=== PATIENT | female | born 1970 | race Caucasian/White ===

== ENCOUNTER 2020-06-11 13:57 | Emergency (ER) | payer MEDICAID, SELFPAY ==
--- NOTE | ~2020-06-11 | XR_ITS ---
EXAMINATION: XR foot LT min 3V DATE: 06/11/2020 14:13 INDICATION: Left foot pain, initial encounter TECHNIQUE: Dorsoplantar, lateral, and 2 oblique views of the left foot were obtained. COMPARISON: None. FINDINGS: There is mild osteoarthritis of the first metatarsophalangeal joint. No fracture is identif ied. There is mild dorsal soft tissue swelling of the foot. Bone alignment is normal. IMPRESSION: 1. No acute osseous abnormality. Reviewed, dictated and finalized at location B.
[2020-06-11 14:01] VITALS: BP 145/89; PULSE 91; RESP 20; TEMP 36.8; O2SAT 100
--- NOTE | 2020-06-11 14:44 | ED.LOWEXIN ---
HPI - Extremity Injury (Lower) General Chief Complaint: Extremity Injury, Lower <Azalea Talbert PA-C - Last Filed: 06/11/20 14:50> Stated Complaint: Lefrt foot pain <ZAC Quach Last Filed: 06/11/20 14:50> Time Seen by Provider: 06/11/20 14:01 <Azalea Talbert PA-C - Last Filed: 06/11/20 14:50> Source: patient <ZAC Quach Last Filed: 06/11/20 14:50> Mode of arrival: wheelchair <ZAC Quach Last Filed: 06/11/20 14:50> Limitations: no limitations <ZAC Quach Last Filed: 06/11/20 14:50> History of Present Illness HPI Narrative: This is a 50 year old female that presents to the ER for left foot pain since an injury last night. Reports she dropped some tile on the foot. Reports since she has had swelling and pain on the top of her foot. Reports decreased ROM due to pain. Denies numbness. <ZAC Quach Last Filed: 06/11/20 14:50> Related Data Home Medications: Home Medications Medication Instructions Recorded Confirmed acetaminophen [Tylenol Extra 500 mg PO Q4H PRN 10/12/19 10/12/19 Strength] <Azalea Talbert PA-C - Last Filed: 06/11/20 14:50> Allergies/Adverse Reactions: Allergies Allergy/AdvReac Type Severity Reaction Status Date / Time codeine Allergy Hives Verified 06/11/20 14:03 <ZAC Quach Last Filed: 06/11/20 14:50> Review of Systems Review of Systems: Narrative: CONSTITUTIONAL: Denies fever MUSCULOSKELETAL: Reports joint pain, and myalgia. NEUROLOGIC: Denies numbness <ZAC Quach Last Filed: 06/11/20 14:50> All systems reviewed & are unremarkable except as noted in HPI and below <ZAC Quach Last Filed: 06/11/20 14:50> [facility] Surgical History Surgical History: Surgical History (Updated 06/11/20 @ 14:47 by Azalea Talbert PA-C) History of hysterectomy <Azalea Talbert PA-C - Last Filed: 06/11/20 14:50> Family History Family History: Family History (System 11/22/19 @ 12:06 by Monique Plata) Father Acute myocardial infarction <Azalea Talbert PA-C - Last Filed: 06/11/20 14:50> Social History Social History: Social History (System 11/22/19 @ 12:06 by Monique Plata) Smoking packs per day: 2 Smoking cigarettes per day: 40.0 Years smoked: 40 Smoking pack-years: 80.00 Smoking status: Current every day smoker Tobacco type: cigarettes Alcohol intake: former Substance use type: marijuana Gender identity (if verbalized by the patient): Female <Azalea Talbert PA-C - Last Filed: 06/11/20 14:50> Exam Narrative: Exam Narrative: GENERAL: Well-appearing, well-nourished, and in no acute distress. HEAD: Normocephalic, atraumatic. EYES: EOMI. EXTREMITIES: Normal range of motion. Mild swelling to the dorsal surface of the left foot. Normal sensation. Normal DP pulses SKIN: Warm, dry, no rash. NEURO: No focal deficits. Alert and oriented x3. PSYCH: Normal mood and affect <Azalea Talbert PA-C - Last Filed: 06/11/20 14:50> Course Vital Signs Vital signs: Vital Signs Temperature 98.3 F 06/11/20 14:01 Pulse Rate 91 06/11/20 14:01 Respiratory Rate 06/11/20 14:01 Blood Pressure 145/89 H 06/11/20 14:01 Pulse Oximetry 100 06/11/20 14:01 Temperature 98.3 F 06/11/20 14:01 Pulse Rate 91 06/11/20 14:01 Respiratory Rate 06/11/20 14:01 Blood Pressure 145/89 H 06/11/20 14:01 Pulse Oximetry 100 06/11/20 14:01 <Azalea Talbert PA-C - Last Filed: 06/11/20 14:50> Vital Signs Temperature 98.3 F 06/11/20 14:01 Pulse Rate 91 06/11/20 14:01 Respiratory Rate 20 06/11/20 14:01 Blood Pressure 145/89 H 06/11/20 14:01 Pulse Oximetry 100 06/11/20 14:01 Temperature 98.3 F 06/11/20 14:01 Pulse Rate 91 06/11/20 14:01 Respiratory Rate 20 06/11/20 14:01 Blood Pressure 145/89 H 06/11/20 14:01 Pulse Oximetry 100 06/11/20
[2020-06-11] MEDS: KETOROLAC (*BKC) 60 MG/2 ML VIAL IM (14:49)
== END 2020-06-11 14:55 | disposition home or self-care (01) ==
PROVIDERS: Emergency Provider Emergency Medicine
DX: M79.672 Pain in left foot (principal); F17.210 Nicotine dependence, cigarettes, uncomplicated
CPT/HCPCS: 73630; 96372; 99283; J1885

== ENCOUNTER 2021-07-20 20:18 | Emergency (ER) | payer BC, SELFPAY ==
[2021-07-20 20:20] VITALS: BP 128/88; PULSE 104; RESP 20; TEMP 36.6; O2SAT 94
--- NOTE | 2021-07-20 21:14 | ED.BACK ---
HPI - Back Pain/Injury General Chief Complaint: Extremity Injury, Lower Stated Complaint: leg hip pain Time Seen by Provider: 07/20/21 21:10 Source: patient Mode of arrival: ambulatory Limitations: no limitations History of Present Illness HPI Narrative: 51-year-old woman with a history of low back pain complains of right flank and hip pain that started this morning. Patient states she recently has been lifting a lot of heavy items. She states the pain radiates all the way down to her foot. For the last 3 days she has had a sharp pain in her right lower back. She denies any weakness, numbness, tingling, dysuria, hematuria. Patient states that she had a fever of 101 yesterday. She denies cough and cold symptoms, shortness of breath, chest pain, vomiting and diarrhea. MD elicited complaint: back pain Pertinent past history: prior back pain Onset (ago): day(s) Timing: constant Severity: moderate Quality: sharp Location: right lower back Radiation: right leg below the knee Exacerbating factors: walking Relieving factors: other ( Rest) Context: while lifting Associated symptoms: fever Treatments prior to arrival: prescription analgesics Related Data Allergies Allergy/AdvReac Type Severity Reaction Status Date / Time codeine Allergy Hives Verified 06/11/20 14:03 Review of Systems Review of Systems: All systems reviewed & are unremarkable except as noted in HPI and below Constitutional: Constitutional: Denies chills and Reports fever(s) Eyes: Eyes: Denies change in vision and Denies photophobia ENT: Denies nasal congestion and Denies sore throat Cardiovascular: Cardiovascular: Denies chest pain and Denies radiating jaw, neck or arm pain Respiratory: Respiratory: Denies cough, Denies dyspnea and Denies wheezing Gastrointestinal: Gastrointestinal: Denies abdominal pain, Denies diarrhea, Denies nausea and Denies vomiting Genitourinary: Genitourinary: Denies hematuria, Denies nocturia and Denies dysuria Musculoskeletal: Musculoskeletal: Reports back pain, Denies arthralgias and Denies joint swelling Integumentary/Breasts: Skin/Breast: Denies pruritus, Denies erythema and Denies rash Neurologic: Denies vertigo, Denies dizziness and Denies syncope Hematologic/Lymphatic: Hematologic/Lymphatic: Denies easy bleeding and Denies easy bruising Allergic/Immunologic: Allergic/Immunologic: Denies lip swelling and Denies throat swelling PMF Past Medical History Medical History (Updated 07/20/21 @ 21:55 by Pablo Hogan MD) Peptic ulcer disease Surgical History Surgical History (Updated 07/20/21 @ 21:19 by Pablo Hogan MD) H/O tubal ligation History of hysterectomy Family History Family History (System 11/22/19 @ 12:06 by Monique Plata) Father Acute myocardial infarction Social History Social History (System 11/22/19 @ 12:06 by Monique Plata) Smoking packs per day: 2 Smoking cigarettes per day: 40.0 Years smoked: 40 Smoking pack-years: 80.00 Smoking status: Current every day smoker Tobacco type: cigarettes Alcohol intake: former Substance use type: marijuana Gender identity (if verbalized by the patient): Female Exam Const: General: healthy appearing and alert Orientation/consciousness: patient oriented x3 Limitations: no limitations Other: Moderate acute distress. HENMT: Head: normal to inspection Face and sinus: normal facial exam Eyes: Conjunctivae: conjunctivae normal Pupils: Equal, round and reactive pupils present EOM: EOMs intact bilaterally Resp: Effort & Inspection: normal respiratory effort and not labored Auscultation: clear to auscultation bilaterally, no rales, no rhonchi and no wheezes Cardio: Rate: regular rate Rhythm: regular rhythm Heart sounds: no murmurs GI: GI Palp: Yes Soft to palpation, No Tenderness to palpation present (GI) and No Guarding due to palpation present (GI) Back/Spine/Pelvis: Other: Tenderness over the ri
[2021-07-20 21:37] LABS: Appearance Urine Clear (Clear); Bilirubin Urine 2+ (Negative); Blood Urine Negative (Negative); Glucose Urine UA Negative (Negative); Ketones Urine Trace (Negative); Leukocyte Esterase Ur Negative (Negative); Nitrate Urine Negative (Negative); Protein Urine Trace (Negative); Specific Grav Ur >= 1.030 (1.010-1.020)
[2021-07-20 21:46] LABS: Add Urine Microscopic? YES; Color Urine Dark Orange (Yellow)
[2021-07-20 21:47] LABS: Bacteria Urine 2+ /hpf; Mucus Urine Heavy /lpf; RBC Urine 0-2 /hpf (0-2); Squamous Epithelial Cell Urine Many /hpf (Few); WBC Urine None seen /hpf (0-3)
[2021-07-20 21:51] LABS: SARS-CoV-2 Ag Negative (Negative)
[2021-07-20 21:59] VITALS: PULSE 100; RESP 20; O2SAT 95
== END 2021-07-20 21:59 | disposition home or self-care (01) ==
PROVIDERS: Emergency Provider Emergency Medicine
DX: M54.31 Sciatica, right side (principal); Z20.822 Contact with and (suspected) exposure to COVID-19
CPT/HCPCS: 81001; 87426; 99283; C9803

== ENCOUNTER 2021-08-02 08:23 | Emergency (ER) | payer BC, SELFPAY ==
[2021-08-02 08:30] VITALS: BP 132/100; PULSE 110; RESP 28; TEMP 36; O2SAT 100
--- NOTE | 2021-08-02 08:45 | ED.SOB ---
HPI - SOB/Dyspnea General Chief Complaint: Shortness of Breath/Dyspnea Stated Complaint: SOB, chest pain, nausea Source: patient Mode of arrival: ambulatory Limitations: no limitations History of Present Illness HPI Narrative: This is 51-year-old female that presents with some some intermittent shortness of breath for the last 5 days with a nonproductive cough with no chest pain no shortness of breath, and currently no fever chills the patient has been having some epigastric burning MD elicited complaint: shortness of breath and cough Onset (ago): day(s) Timing: intermittent Severity: mild Exacerbating factors: nothing Related Data Allergies Allergy/AdvReac Type Severity Reaction Status Date / Time codeine Allergy Hives Verified 06/11/20 14:03 Review of Systems Review of Systems: All systems reviewed & are unremarkable except as noted in HPI and below PMFSH Past Medical History Medical History Peptic ulcer disease Surgical History Surgical History H/O tubal ligation History of hysterectomy Family History Family History Father Acute myocardial infarction Social History Social History Smoking packs per day: 2 Smoking cigarettes per day: 40.0 Years smoked: 40 Smoking pack-years: 80.00 Smoking status: Current every day smoker Tobacco type: cigarettes Alcohol intake: former Substance use type: marijuana Gender identity (if verbalized by the patient): Female Exam Const: General: no acute distress Orientation/consciousness: patient oriented x3 HENMT: Head: normal to inspection Eyes: Conjunctivae: conjunctivae normal Pupils: Equal, round and reactive pupils present EOM: EOMs intact bilaterally Chest: Chest palpation & inspection: normal inspection of the chest Resp: Effort & Inspection: normal respiratory effort Cardio: Rate: regular rate Rhythm: regular rhythm GI: GI Palp: Yes Soft to palpation and Yes Tenderness to palpation present (GI) ( epigastric tenderness) Urinary Catheter: Urinary Catheter: patent and draining Back/Spine/Pelvis: Back: no CVA tenderness Neuro: General: patient oriented x3, moves all extremities, no meningeal signs and no focal motor deficits Extrem: General: normal to inspection Psych: Mental Status: mental status grossly normal Course Course Emergency Course: patient resting comfortably appears anxious was sent antibiotics along with an inhaler and Protonix for her epigastric discomfort. Vital Signs Vital signs: Vital Signs Temperature 36.0 C L 08/02/21 08:30 Pulse Rate 110 H 08/02/21 08:30 Respiratory Rate 28 H 08/02/21 08:30 Blood Pressure 132/100 H 08/02/21 08:30 Pulse Oximetry 100 08/02/21 08:30 Temperature 36.0 C L 08/02/21 08:30 Pulse Rate 110 H 08/02/21 08:30 Respiratory Rate 28 H 08/02/21 08:30 Blood Pressure 132/100 H 08/02/21 08:30 Pulse Oximetry 100 08/02/21 08:30 Critical Care Time Critical Care Time Critical Care Time: No Discharge Plan Discharge Clinical Impression: Peptic ulcer disease, URI with cough and congestion Patient Disposition: Home, Self-Care Condition: Stable Instructions: Antibiotic Form, Upper Respiratory Infection (ED), GERD (Gastroesophageal Reflux Disease) (ED) Additional Instructions: take medicine as prescribed, follow-up with primary care physician within 1 week for further evaluation and treatment. Prescriptions: New azithromycin [Zithromax Z-Valente] 250 mg tablet See Rx Instructions .ROUTE .COMPLEX Qty: 6 RF: 0 albuterol sulfate [ProAir HFA] 90 mcg/actuation HFA aerosol inhaler 2 puff inhalation QID PRN (Reason: shortness of breath or wheezing) Qty: 6.7 RF: 0 pantoprazole [Protonix] 40 mg tablet,delayed release (DR/EC) 4
[2021-08-02 08:56] VITALS: BP 132/97; PULSE 100; RESP 24; TEMP 36.1; O2SAT 99
== END 2021-08-02 08:58 | disposition home or self-care (01) ==
PROVIDERS: Emergency Provider Emergency Medicine
DX: K27.9 Peptic ulcer, site unspecified, unspecified as acute or chronic, without hemorrhage or perforation (principal); J06.9 Acute upper respiratory infection, unspecified; R05 Cough
CPT/HCPCS: 99283

== ENCOUNTER 2021-08-11 07:31 | Inpatient (IN) | payer BC, SELFPAY ==
[2021-08-11] VITALS (7 sets, daily range): BP systolic 119–143; BP diastolic 83–106; PULSE 88–122; RESP 20–24; TEMP 36.6–36.9; O2SAT 92–96; BMI 35.1
--- NOTE | ~2021-08-11 | CT_ITS ---
EXAMINATION: CT diagnostic chest wo con EXAM DATE: 08/11/2021 10:20 INDICATION: Abnormal chest x-ray. Shortness of breath, known COPD SOB,COUGH,COPD. TECHNIQUE: Spiral CT of the chest without contrast. Axial, coronal and sagittal images of the chest were reviewed. Coronal maximum intensity pixel images of chest reviewed. The dose-length product ( DLP) for this examination was 364.44 mGy-cm. The exposure was tailored according to patient size (au to mA exposure control), and iterative reconstruction (ASIR) was used as additional dose reduction te chnique. Correlation is made to chest x-ray obtained earlier same date. FINDINGS: There is moderate cardiomegaly. Small pericardial and right pleural effusions. There is bas ilar interlobular septal thickening and scattered peripheral predominant groundglass opacities. Could be CHF exacerbation with mild pulmonary edema. Can't exclude superimposed acute infectious process s uch as COVID 19. Tracheobronchial tree is patent. Mildly enlarged precarinal lymph node, but with expected fatty hil um, likely reactive. There is no pneumothorax. There is moderate coronary arterial calcification , arterial sclerosis. Upper portion of the abdomen demonstrates ill-defined fat planes in the retroperitoneum, could be astrid ma from acute process such as pancreatitis. Recommend clinically correlating, consider checking amyla se lipase, additional imaging if indicated clinically. There is mild to moderate thoracic spondylosi s without osteoblastic or osteolytic lesions identified. IMPRESSION: 1. Findings consistent with CHF exacerbation. Superimposed pneumonia not excludable. 2. Nonspecific upper retroperitoneal edema; clinical correlation recommended. Reviewed, dictated and finalized at location A. IMPRESSION: 1. Findings consistent with CHF exacerbation. Superimposed pneumonia not exclu dable. 2. Nonspecific upper retroperitoneal edema; clinical correlation recommended.
--- NOTE | ~2021-08-11 | CT_ITS ---
EXAMINATION: CT abdomen pelvis w con DATE: 08/11/2021 12:47 INDICATION: Epigastric pain, nausea and vomiting. TECHNIQUE: Computed tomography (CT) of the abdomen and pelvis was performed with 100 mL Omnipaque-350 intravenous contrast. Automated exposure control and iterative reconstruction technique were employe d. The dose-length product was 1036.64 mGy-cm. COMPARISON: None FINDINGS: Very small posterior layering right pleural effusion. Mild crazy paving pattern at the bilateral lung bases with mosaic attenuation and smooth septal line thickening most likely mild pulmonary edema. Ca rdiomegaly. Atherosclerotic coronary artery calcific location. No pericardial effusion. Diffuse hepat ic steatosis. There is a small amount of pericholecystic fluid along with additional small amount of free fluid in the cul-de-sac. Pancreas, spleen and bilateral adrenal glands are normal. Bilateral low -attenuation renal cysts the largest on the right measuring 2.1 cm. Suggestion of a 2-3 mm nonobstruc ting stone at the mid right kidney although specificities decreased by the presence of intravenous co ntrast. No ureteral stones or hydronephrosis. No abnormal bowel wall thickening or obstruction. Appen carrol is normal. Bladder is normal. The uterus is not identified and has likely been surgically resecte d. No abscess or free intraperitoneal gas. Small focus of likely injected subcutaneous gas at the rig ht buttock. No pathologically enlarged abdominal or pelvic lymphadenopathy. Mild thoracolumbar dextro scoliosis with moderate spondylosis. L3 hemangioma. IMPRESSION: 1. Small amount of pericholecystic fluid which is disproportionate to the otherwise very small amount of free fluid in the pelvis which raises some suspicion for acute cholecystitis. Differential would include heart renal failure, liver disease, sepsis or other generalized edema forming states. 2. Likely congestive heart failure with cardiac megaly, mild bibasilar pulmonary edema and very small right pleural effusion. Reviewed, dictated and finalized at location A. IMPRESSION: 1. Small amount of pericholecystic fluid which is disproportionate to the other kelly very small amount of free fluid in the pelvis which raises some suspicion for acute cholecystitis. Differential would include heart renal failure, liver disease, sepsis or other generalized edema forming states. 2. Likely congestive heart failure with cardiac megaly, mild bibasilar pulmonar y edema and very small right pleural effusion.
--- NOTE | ~2021-08-11 | XR_ITS ---
EXAMINATION: XR chest 1V portable EXAM DATE: 08/11/2021 08:45 INDICATION: Shortness of breath. Patient under investigation for possible COVID 19. TECHNIQUE: Portable AP frontal chest x-ray was obtained. There is no prior study for comparison. FINDINGS: There is cardiomegaly and pulmonary vascular congestion. There is indistinct reticulation w ith a bibasal predominance which may indicate pulmonary edema. Pneumonia not excludable. No confluent consolidation, pneumothorax or pleural effusion. There are no osseous abnormalities identified. IMPRESSION: 1. Cardiomegaly, pulmonary vascular congestion. 2. Indistinct basilar predominant reticulation, could be edema but pneumonia not excludable. Reviewed, dictated and finalized at location A. IMPRESSION: 1. Cardiomegaly, pulmonary vascular congestion. 2. Indistinct basilar predominant reticulation, could be edema but pneumonia no t excludable.
--- NOTE | 2021-08-11 08:26 | ECG_ITS ---
Measurements Intervals [place] Rate: 120 P: 70 WV: 176 QRS: 79 QRSD: 94 T: 58 QT: 425 QTc: 601 Interpretive Statements SINUS TACHYCARDIA DELAYED PRECORDIAL R/S TRANSITION BORDERLINE ST-T WAVE ABNORMALITY- DIFFUSE LEADS ABNORMAL ECG Electronically Signed On 08-11-2021 10:48:55 CDT by Oh Bangura D.O.
[2021-08-11 08:58] LABS: Base Excess ABG -1.6 mmol/L (0-2); HCO3 ABG 20.3 mmol/L (23-29); Oxygen Content ABG 18.4 %vol (16.0-22.0); Oxygen Saturation ABG 96.4 % (95-97); Oxyhemoglobin 95.8 % (94-100); PCO2 ABG 27.3 mmHg (35-45); PO2 ABG 81.2 mmHg (80-90); Total Hemoglobin 13.6 g/dL (12.0-18.0); pH ABG 7.49 (7.35-7.45)
[2021-08-11 08:59] LABS: Device NASAL CANNULA; Modified Allen's Test Pass; Site Drawn RIGHT RADIAL
[2021-08-11 09:02] LABS: Basophils Absolute Auto 0.05 K/mm3 (0.00-0.10); Basophils Percent Auto 0.8 % (0.0-1.0); Eosinophils Absolute Auto 0.16 K/mm3 (0.02-0.50); Eosinophils Percent Auto 2.5 % (1.0-6.0); Hematocrit 42.3 % (35.0-49.0); Hemoglobin 13.7 g/dL (12.0-15.0); Immature Granulocyte Absolute 0.02 K/mm3 (0.00-0.00); Immature Granulocyte Percent A 0.3 % (0.0-0.0); Immature Platelet Fraction Pct 4.4 % (1.0-7.0); Lymphocytes Absolute Auto 0.86 K/mm3 (1.10-4.50); Lymphocytes Percent Auto 13.2 % (18.0-42.0); Mean Corpuscular HGB Conc 32.4 g/dL (32.0-36.0); Mean Corpuscular Hemoglobin 30.2 pg (27.0-31.0); Mean Corpuscular Volume 93.2 fL (78.0-102.0); Monocytes Absolute Auto 0.47 K/mm3 (0.10-0.90); Monocytes Percent Auto 7.2 % (2.0-11.0); Platelet Count Result 140 K/mm3 (150-420); Red Blood Count 4.54 M/mm3 (4.20-5.40); Red Cell Distribution Width 13.7 % (11.6-14.4); White Blood Count 6.5 K/mm3 (4.8-10.8)
[2021-08-11 09:16] LABS: Alanine Aminotransferase 51 U/L (14-59); Albumin Level 3.7 g/dL (3.4-5.0); Alkaline Phosphatase 71 U/L (46-116); Anion Gap 11 mmol/L (8-16); Aspartate Amino Transferase 45 U/L (15-37); Bilirubin,Total 0.9 mg/dL (0.00-1.00); Blood Urea Nitrogen 15 mg/dL (7-18); Calcium 8.7 mg/dL (8.5-10.1); Carbon Dioxide 25 mmol/L (21-32); Chloride 107 mmol/L (98-108); Estimated Glomerular Filt Rate 47; Glucose 112 mg/dL (70-99); Osmolality Calculated 297 mOsm/kg (285-295); Potassium 4.1 mmol/L (3.5-5.1); Sodium 143 mmol/L (136-145); Total Protein 7.8 g/dL (6.4-8.2); Troponin I 55.4 ng/L (0.00-60.4)
[2021-08-11 09:22] LABS: SARS-CoV-2 Ag Negative (Negative)
[2021-08-11] MEDS: ONDANSETRON INJ 4 MG/2 ML VIAL IV PUSH ×3 (09:22→20:37)
[2021-08-11] MEDS: KETOROLAC (*BKC) 60 MG/2 ML VIAL IM (09:22)
[2021-08-11] MEDS: PANTOPRAZOLE SODIUM IV 40 MG VIAL IV PUSH (09:23)
[2021-08-11] MEDS: SODIUM CHLORIDE 0.9% IV 500 ML 999 ML IV CONT (09:23)
[2021-08-11] MEDS: ALBUTEROL SULFATE (*SP) INHALER 2 PUFF INHALATION ×2 (09:23→17:31)
[2021-08-11] MEDS: MAG HYDROX/ALUMINUM HYD/SIMETH 30 ML, PHENobarb/HYOSCY/ATROPINE/SCOP 32.4 MG, LIDOCAINE... PO (09:23)
[2021-08-11 10:36] LABS: NT Pro B Type Natriuretic Pept 9450 pg/mL (0-125)
[2021-08-11 12:15] LABS: Lipase 149 U/L (73-393)
[2021-08-11] MEDS: FUROSEMIDE INJ 100 MG/10 ML VIAL 80 MG IV PUSH (12:24)
--- NOTE | 2021-08-11 12:53 | PC.NURSE ---
1238 LACIE DUNCAN REQUESTS INPATIENT ROOM FROM ANTONIO MAGAÑA RN. ROOM 203 PROVIDED. 1245 RN PROVIDES TELEPHONE REPORT TO DAR SOLOMON.
--- NOTE | 2021-08-11 13:08 | ED.SOB ---
HPI - SOB/Dyspnea General Chief Complaint: Shortness of Breath/Dyspnea Stated Complaint: COUGH SOB Time Seen by Provider: 08/11/21 07:33 Source: patient and RN notes reviewed Mode of arrival: ambulatory Limitations: no limitations History of Present Illness MD elicited complaint: shortness of breath and cough Pertinent past history: COPD Onset (ago): day(s) (3) Timing: constant Severity: moderate Exacerbating factors: nothing Relieving factors: nothing Known history of: COPD Associated symptoms: cough, wheezing and other (restless legs.) Treatment prior to arrival: none Related Data Allergies Allergy/AdvReac Type Severity Reaction Status Date / Time codeine Allergy Hives Verified 06/11/20 14:03 Review of Systems Review of Systems: All systems reviewed & are unremarkable except as noted in HPI and below Respiratory: Respiratory: Reports cough and Reports dyspnea Gastrointestinal: Gastrointestinal: Reports abdominal pain (minimal epigastric) [facility] Past Medical History Medical History Cholecystitis Congestive heart failure Peptic ulcer disease UTI (urinary tract infection) Surgical History Surgical History H/O tubal ligation History of hysterectomy Family History Family History Father Acute myocardial infarction Social History Social History Smoking packs per day: 0.5 Smoking cigarettes per day: 10.0 Years smoked: 41 Smoking pack-years: 20.50 Smoking status: Current every day smoker Tobacco type: cigarettes and e-cigarettes/vaping Second hand tobacco smoke exposure: Yes Alcohol intake: former Substance use: current Substance use type: marijuana Last use: 2 days ago possibly Gender identity (if verbalized by the patient): Female Spiritual care concerns: No Exam Const: General: no acute distress and alert Orientation/consciousness: patient oriented x3 HENMT: Head: normal to inspection Ears: external ears normal and TM's normal bilaterally General nose exam: Normal external nose present and Normal nares present Mouth: Yes moist mucous membranes Eyes: Conjunctivae: conjunctivae normal Pupils: Equal, round and reactive pupils present EOM: EOMs intact bilaterally Neck: Neck: normal visual inspection and no lymphadenopathy Chest: Chest palpation & inspection: normal inspection of the chest Resp: Effort & Inspection: normal respiratory effort Auscultation: rhonchi Cardio: Rate: tachycardic GI: GI Palp: Yes Soft to palpation and Yes Tenderness to palpation present (GI) (epigastrium) Percussion: Yes normal to percussion Auscultation: normal bowel sounds : General: Yes no CVA tenderness Back/Spine/Pelvis: Back: no CVA tenderness Skin: General skin exam: normal color Rashes: no rashes Neuro: General: patient oriented x3, moves all extremities, no meningeal signs, no focal motor deficits and CN's II-XI intact bilaterally Extrem: General: normal to inspection and no pedal edema Psych: Mental Status: mental status grossly normal Affect: normal affect Attitude: cooperative Thought content: Yes Normal thought content present Course Course Emergency Course: Pt was admitted. See orders. Reevaluation(s) Reevaluation #1: Pt remained mildly SOB, with no acute GI loss. Date: 08/11/21 Time: 08:45 Vital Signs Vital signs: Vital Signs Temperature 36.6 C 08/11/21 07:50 Pulse Rate 122 H 08/11/21 07:50 Respiratory Rate 22 H 08/11/21 07:50 Blood Pressure 138/98 H 08/11/21 07:50 Pulse Oximetry 96 08/11/21 07:50 Temperature 36.6 C 08/11/21 23:49 Pulse Rate 88 08/11/21 23:49 Respiratory Rate 20 08/11/21 23:49 Blood Pressure 124/94 H 08/11/21 23:49 Pulse Oximetry 94 08/11/21 23:49 MDM - SOB/Dyspnea Differential Di
--- NOTE | 2021-08-11 13:50 | PC.NURSE ---
Patient admitted to room 203 as full admit for CHF exacerbation, SOB, Cough. Vitals taken T: 98.2, P: 114, R: 20, BP: 123/83, Ht: 5'3 , Wt: 89.9kg. w/no c/o pain at this time but some discomfort upper medial abdomen region.
[2021-08-11] MEDS: FUROSEMIDE INJ 40 MG/4 ML VIAL IV PUSH (17:31)
--- NOTE | 2021-08-11 20:19 | PC.NURSE ---
Dr Cottrell notified of patient requesting cough medicine and needing a code status ordered. New orders received for Full Code and for Mucinex.
[2021-08-11] MEDS: guaiFENesin 12 HR 600 MG TABCR PO (20:37)
[2021-08-11 22:03] LABS: Add Urine Microscopic? NO; Appearance Urine Clear (Clear); Bilirubin Urine Negative (Negative); Blood Urine Negative (Negative); Color Urine Light Yellow (Yellow); Glucose Urine UA Negative (Negative); Ketones Urine Negative (Negative); Leukocyte Esterase Ur Negative (Negative); Nitrate Urine Negative (Negative); Protein Urine Negative (Negative); Specific Grav Ur 1.015 (1.010-1.020); Urobilinogen Urine 0.2 mg/dL (0.2-1.0)
--- NOTE | 2021-08-11 23:46 | PC.NURSE ---
Ink Grinder making rounds and assessed vitals, Sp02 at 86% on RA. Ink Grinder instructed breathing techniques and patient got to 91% then dropped to 85%. Ink Grinder applied O2 at 2L per nasal cannula. Instructions given to patient on breathing. Sp02 increased to 95%. Diastolic BP at 94, asymptomatic. drum sander notified of both changes.
--- NOTE | 2021-08-11 23:48 | PC.NURSE ---
Dr Cottrell notified of patient's SpO2 on room air being 86% and O2 being started @ 2 lpm/nc, which brought SpO2 to 93-95%.
[2021-08-12] MEDS: ONDANSETRON INJ 4 MG/2 ML VIAL IV PUSH (05:08)
[2021-08-12 05:17] LABS: Basophils Absolute Auto 0.04 K/mm3 (0.00-0.10); Basophils Percent Auto 0.7 % (0.0-1.0); Eosinophils Absolute Auto 0.27 K/mm3 (0.02-0.50); Eosinophils Percent Auto 4.9 % (1.0-6.0); Hematocrit 41.5 % (35.0-49.0); Hemoglobin 13.2 g/dL (12.0-15.0); Immature Granulocyte Absolute 0.01 K/mm3 (0.00-0.00); Immature Granulocyte Percent A 0.2 % (0.0-0.0); Immature Platelet Fraction Pct 4.5 % (1.0-7.0); Lymphocytes Absolute Auto 1.34 K/mm3 (1.10-4.50); Lymphocytes Percent Auto 24.5 % (18.0-42.0); Mean Corpuscular HGB Conc 31.8 g/dL (32.0-36.0); Mean Corpuscular Hemoglobin 29.6 pg (27.0-31.0); Mean Platelet Volume 11.9 fl (9.2-11.8); Monocytes Absolute Auto 0.45 K/mm3 (0.10-0.90); Monocytes Percent Auto 8.2 % (2.0-11.0); Neutrophils Absolute Auto 3.4 K/mm3 (1.7-7.2); Neutrophils Percent Auto 61.5 % (50.0-70.0); Platelet Count Result 127 K/mm3 (150-420); Red Blood Count 4.46 M/mm3 (4.20-5.40); Red Cell Distribution Width 13.5 % (11.6-14.4); White Blood Count 5.5 K/mm3 (4.8-10.8)
[2021-08-12 05:27] VITALS: O2SAT 97
[2021-08-12 05:41] LABS: Alanine Aminotransferase 42 U/L (14-59); Albumin Level 3.5 g/dL (3.4-5.0); Alkaline Phosphatase 66 U/L (46-116); Anion Gap 9 mmol/L (8-16); Aspartate Amino Transferase 39 U/L (15-37); Bilirubin,Total 0.9 mg/dL (0.00-1.00); Blood Urea Nitrogen 18 mg/dL (7-18); Calcium 8.6 mg/dL (8.5-10.1); Carbon Dioxide 29 mmol/L (21-32); Chloride 105 mmol/L (98-108); Estimated CRCL calculation 44 ml/min; Estimated Glomerular Filt Rate 39; Glucose 100 mg/dL (70-99); NT Pro B Type Natriuretic Pept 9055 pg/mL (0-125); Osmolality Calculated 297 mOsm/kg (285-295); Potassium 3.8 mmol/L (3.5-5.1); Sodium 143 mmol/L (136-145); Total Protein 7.7 g/dL (6.4-8.2)
--- NOTE | 2021-08-12 07:07 | PC.NURSE ---
Patient resting in bed at this time on 2L O2/NC w/no c/o SOB.
[2021-08-12 07:30] VITALS: BP 135/99; PULSE 106; RESP 20; TEMP 36.1; O2SAT 94
[2021-08-12] MEDS: FUROSEMIDE INJ 40 MG/4 ML VIAL IV PUSH ×2 (08:21→16:33)
[2021-08-12] MEDS: guaiFENesin 12 HR 600 MG TABCR PO ×2 (08:21→21:07)
[2021-08-12] MEDS: PANTOPRAZOLE SODIUM IV 40 MG VIAL IV PUSH (08:21)
--- NOTE | 2021-08-12 09:09 | PC.NURSE ---
Patient sitting in bed consuming 100% breakfast. Meds taken as ordered w/no c/o pain or discomfort at this time. Patient ambulates occasionally independently and has removed O2/NC per self.
--- NOTE | 2021-08-12 10:22 | PM.IMHP ---
H&P: HPI History of Present Illness Date/Time: 08/12/21 10:22 Christine Montes is a 51 year old female who comes to the hospital for shortness of breath and epigastric pains. Pt states that she has a Hx of COPD. She has been coughing a lot more lately which is triggered by deep breathing. This has been getting progressively worse over the last few days. She has a history of peptic ulcer disease and states her stomach hurts at times but not at this moment. She would like something for her stomach for when it acts up which is usually right after eating. She denies fever, chills, body aches, joint pains, productive cough N/V/D. She does have epigastric pain at times and states it is worse with coughing. <ROBINSON Quiroga - Last Filed: 08/12/21 14:06> Chief Complaint: SOB <ROBINSON Quiroga - Last Filed: 08/12/21 14:06> Review of Systems Constitutional: Constitutional: Reports no additional constitutional complaints, Denies body ache(s), Denies chills, Denies fever(s), Denies headache(s), Denies malaise, Denies poor appetite and Denies weakness <ROBINSON Quiroga - Last Filed: 08/12/21 14:06> Cardiovascular: Cardiovascular: Reports no additional cardiovascular complaints, Denies chest pain, Denies chest pain at rest, Denies chest pain with activity, Denies leg edema and Denies lightheadedness <ROBINSON Quiroga - Last Filed: 08/12/21 14:06> Respiratory: Respiratory: Reports no additional respiratory complaints, Reports cough and Denies dyspnea (states her SOB is resolved this AM.) <ROBINSON Quiroga - Last Filed: 08/12/21 14:06> Comments: Smokes 1/2 PPD and would like Nicotine Patch <ROBINSON Quiroga - Last Filed: 08/12/21 14:06> Gastrointestinal: Gastrointestinal: Reports no additional gastrointestinal complaints, Reports abdominal pain (occasional), Denies belching and Denies melena <ROBINSON Quiroga - Last Filed: 08/12/21 14:06> Genitourinary: Genitourinary: Reports no additional female genitourinary complaints, Denies hematuria, Denies nocturia and Denies dysuria <ROBINSON Quiroga - Last Filed: 08/12/21 14:06> Musculoskeletal: Musculoskeletal: Reports no additional musculoskeletal complaints, Denies back pain, Denies arthralgias and Denies joint swelling <ROBINSON Quiroga - Last Filed: 08/12/21 14:06> Neurologic: Reports system reviewed and no additional complaints, except as documented and Reports restless legs <ROBINSON Quiroga - Last Filed: 08/12/21 14:06> Psychiatric: Psychiatric: Reports no additional psychiatric complaints <ROBINSON Quiroga - Last Filed: 08/12/21 14:06> [facility] Past Medical History Medical History: Medical History Cholecystitis Congestive heart failure Peptic ulcer disease UTI (urinary tract infection) <ROBINSON Quiroga - Last Filed: 08/12/21 14:06> Surgical History Surgical History: Surgical History H/O tubal ligation History of hysterectomy <ROBINSON Quiroga - Last Filed: 08/12/21 14:06> Family History Family History: Family History Father Acute myocardial infarction <ROBINSON Quiroga - Last Filed: 08/12/21 14:06> Social History Social History: Social History Smoking packs per day: 0.5 Smoking cigarettes per day: 10.0 Years smoked: 41 Smoking pack-years: 20.50 Smoking status: Current every day smoker Tobacco type: cigarettes and e-cigarettes/vaping Second hand tobacco smoke exposure: Yes Alcohol intake: former Substance use: current Substance use type: marijuana Last use: 2 days ago possibly Gender identity (if verbalized by the patient): Female Spiritual care concerns: No <Cornelius Fair APN-Johny - Last Filed: 08/12/21 14:06> Meds H
[2021-08-12] MEDS: ACETAMINOPHEN 325 MG TABLET 650 MG PO (12:04)
[2021-08-12] MEDS: NICOTINE (*PBKC) 21 MG PATCH 1 PATCH TRANSDERM (12:26)
--- NOTE | 2021-08-12 14:42 | PC.NURSE ---
Patient resting in bed at this time. C/o headache d/t non-productive cough w/Tylenol given as ordered and effective.
[2021-08-12 16:00] VITALS: BP 142/85; PULSE 95; RESP 20; TEMP 36.7; O2SAT 96
[2021-08-12] MEDS: carvediloL 3.125 MG TABLET PO (21:07)
[2021-08-13] VITALS: BP 131/90; PULSE 97; RESP 18; TEMP 35.6; O2SAT 97
--- NOTE | 2021-08-13 00:13 | PC.NURSE ---
Patient doing well, off O2 and at 97% RA. Patient independent in room. Patient showered and bedding was changed. Monitoring
[2021-08-13 05:18] LABS: Hematocrit 41.7 % (35.0-49.0); Hemoglobin 13.6 g/dL (12.0-15.0); Mean Corpuscular HGB Conc 32.6 g/dL (32.0-36.0); Mean Corpuscular Hemoglobin 29.4 pg (27.0-31.0); Mean Corpuscular Volume 90.3 fL (78.0-102.0); Mean Platelet Volume 11.7 fl (9.2-11.8); Platelet Count Result 138 K/mm3 (150-420); Red Blood Count 4.62 M/mm3 (4.20-5.40); Red Cell Distribution Width 13.3 % (11.6-14.4); White Blood Count 4.2 K/mm3 (4.8-10.8)
[2021-08-13 05:38] LABS: Anion Gap 8 mmol/L (8-16); Blood Urea Nitrogen 20 mg/dL (7-18); Calcium 9.1 mg/dL (8.5-10.1); Carbon Dioxide 30 mmol/L (21-32); Chloride 104 mmol/L (98-108); Estimated CRCL calculation 45 ml/min; Estimated Glomerular Filt Rate 40; Glucose 110 mg/dL (70-99); NT Pro B Type Natriuretic Pept 5922 pg/mL (0-125); Osmolality Calculated 297 mOsm/kg (285-295); Potassium 3.6 mmol/L (3.5-5.1); Sodium 142 mmol/L (136-145)
[2021-08-13 07:52] VITALS: BP 126/101; PULSE 108; RESP 18; TEMP 35.7; O2SAT 97
[2021-08-13] MEDS: PANTOPRAZOLE SODIUM IV 40 MG VIAL IV PUSH (08:53)
[2021-08-13 08:54] VITALS: PULSE 105
[2021-08-13] MEDS: FUROSEMIDE INJ 40 MG/4 ML VIAL IV PUSH ×2 (08:54→17:57)
[2021-08-13] MEDS: carvediloL 3.125 MG TABLET PO ×2 (08:54→21:13)
[2021-08-13] MEDS: NICOTINE (*PBKC) 21 MG PATCH 1 PATCH TRANSDERM (08:54)
[2021-08-13] MEDS: guaiFENesin 12 HR 600 MG TABCR PO ×2 (08:54→21:15)
--- NOTE | 2021-08-13 10:59 | PM.IMPN ---
Progress Note: A&P Assessment and Plan (1) Congestive heart failure: Qualifiers: Heart failure chronicity: acute Heart failure type: unspecified Qualified Code(s): I50.9 - Heart failure, unspecified Code(s): I50.9 - Heart failure, unspecified Status: Acute Assessment and Plan: P-BNP 9450 in ER now 9055, no SOB at this time, no pedal edema, Lasix 40 mg BID, Monitoring I&O, will monitor P-BNP, 2 gm sodium diet 08/13/2021 BNP improved now 5922, no SOB, mostly expiratory wheezing, no pedal edema, no rales, Fluid balance is -10 ml, continue with 2gm low sodium diet (2) Acute renal injury: Code(s): N17.9 - Acute kidney failure, unspecified Status: Acute Assessment and Plan: Cr 1.43 in ER and 1.21 this AM, resolving, 1 L NS in ER, PO fluids at this time, monitor renal function, 2 gm sodium diet 08/13/2021 Cr 1.39, taking PO fluids well, weight 87.8 kg, continue to monitor renal function (3) CAP (community acquired pneumonia): Code(s): J18.9 - Pneumonia, unspecified organism Status: Acute Assessment and Plan: Rocephin, occasional non-productive cough, WBC 5.5, no supplemental oxygen, monitoring VS and respiratory status 08/13/2021 Continue with Rocephin, WBC 4.2, room air, VSS, breathing not labored (4) Peptic ulcer disease: Code(s): K27.9 - Peptic ulcer, site unspecified, unspecified as acute or chronic, without hemorrhage or perforation Status: Acute Assessment and Plan: History of PUD, occasional abdominal pain usually after eating, no complaints post breakfast or lunch, Protonix and Tums added. 08/13/2021 No c/o abdominal pains, continue with current regimen. Subjective Date/time seen: 08/13/21 10:59 Pt resting well in bed having breakfast. Pt states he breathing has improved but still notices some wheezing. I asked if she has been asking for her PRN Albuterol and she replied no. I encouraged her to ask for her Albuterol and informed the RN as well. Pt does not have any other complaints or concerns at this time. Denies fever, chills, SOB, CP, abdominal pain. She has no difficulty eating and drinking. Review of Systems Review of Systems: All systems reviewed & are unremarkable except as noted in HPI and below Exam Const: General: cooperative, comfortable, no acute distress, alert, awake and Physically active Nutritional Appearance: obese Resp: Effort & Inspection: normal respiratory effort Auscultation: wheezes (mostly expiratory) Cardio: Rate: regular rate Heart sounds: S1 normal heart sound present and S2 normal heart sound present GI: GI Palp: Yes Soft to palpation, No Tenderness to palpation present (GI), No Palpable mass present, No Pulsatile mass present and No Ascites present Auscultation: Hyperactive bowel sounds present Skin: General skin exam: normal color and dry skin Neuro: General: oriented to person, oriented to place and oriented to time Cranial nerves: Yes CN's II-XII intact bilaterally (grossly intact) Cognition (Neuro): normal cognition Speech: normal speech Motor exam (neuro): 5/5 motor strength present throughout Extrem: General: full ROM and no pedal edema Psych: Appearance: grossly normal Mental Status: mental status grossly normal Speech and movement: Normal speech and movement present Affect: normal affect Attitude: cooperative Thought process: Normal thought process present Objective Data Vital Signs Vital Signs: Vital Signs - 24 hr 08/12/21 16:00 08/13/21 00:00 08/13/21 07:52 Temperature 98.1 F 96.1 F L 96.3 F L Pulse Rate 95 97 108 H Respiratory Rate 20 18 18 Blood Pressure 142/85 H 131/90 126/101 H Pulse Oximetry 96 97 97 08/13/21 08:54 Temperature Pulse Rate 105 H Respiratory Rate Blood Pressure Pulse Oximetry Intake/Output Intake/Output: Intake & Output 08/10/21 08/11/21 08/12/21 08/13/21 23:59 23:59 23:59 23:59 Intake Total 1250 1270 530 Output Total 725 1925 Balance 525
[2021-08-13 16:00] VITALS: BP 139/97; PULSE 104; RESP 20; TEMP 36; O2SAT 96
--- NOTE | 2021-08-13 19:00 | PC.NURSE ---
Completed bedside change of shift report. Patient requested ice for her glass. Otherwise, she did not need anything. She stated that the medication Natalie gave her was working very well - she has had to go to the toilet several times already.
[2021-08-13] MEDS: rOPINIRole HCL 0.5 MG TABLET 0.25 MG PO (21:12)
[2021-08-13 21:13] VITALS: PULSE 114
--- NOTE | 2021-08-13 22:10 | PC.NURSE ---
Patient rounding completed. Patient is sitting in chair, watching TV. She stated that she does not need anything at this time.
[2021-08-14] VITALS: BP 130/72; PULSE 94; RESP 20; TEMP 36.4; O2SAT 94
[2021-08-14] MEDS: ACETAMINOPHEN 325 MG TABLET 650 MG PO (00:08)
--- NOTE | 2021-08-14 02:00 | PC.NURSE ---
Patient rounding completed. Patient is resting comfortably in bed, preparing to go to sleep. Patient stated that she did not need anything at this time.
--- NOTE | 2021-08-14 04:00 | PC.NURSE ---
Patient rounding completed. Patient is sleeping comfortably in bed. She is sleeping on her stomach, with her legs occasionally moving. She does not show any other signs of pain or discomfort.
[2021-08-14 08:00] VITALS: BP 103/76; PULSE 98; RESP 17; TEMP 36.2; O2SAT 99
[2021-08-14] MEDS: NICOTINE (*PBKC) 21 MG PATCH 1 PATCH TRANSDERM (08:40)
[2021-08-14 08:45] VITALS: PULSE 98
[2021-08-14] MEDS: carvediloL 3.125 MG TABLET PO (08:45)
[2021-08-14] MEDS: guaiFENesin 12 HR 600 MG TABCR PO (08:45)
--- NOTE | 2021-08-14 08:52 | PM.DS ---
DS: Admitting Diagnosis Discharge Date 08/14/2021 Admitting Diagnosis CHF, UTI DS: Discharge Diagnosis Discharge Diagnosis (1) Congestive heart failure: Qualifiers: Heart failure chronicity: acute Heart failure type: unspecified Qualified Code(s): I50.9 - Heart failure, unspecified Code(s): I50.9 - Heart failure, unspecified Status: Acute Assessment and Plan: P-BNP 9450 in ER now 9055, no SOB at this time, no pedal edema, Lasix 40 mg BID, Monitoring I&O, will monitor P-BNP, 2 gm sodium diet 08/13/2021 BNP improved now 5922, no SOB, mostly expiratory wheezing, no pedal edema, no rales, Fluid balance is -10 ml, continue with 2gm low sodium diet 08/14/2021 Pt lungs are clear, no SOB or increased WOB, no pedal edema noticed, she does have an occasional cough and I will send her a script for some Robitussin to her pharmacy. (2) Acute renal injury: Code(s): N17.9 - Acute kidney failure, unspecified Status: Acute Assessment and Plan: Cr 1.43 in ER and 1.21 this AM, resolving, 1 L NS in ER, PO fluids at this time, monitor renal function, 2 gm sodium diet 08/13/2021 Cr 1.39, taking PO fluids well, weight 87.8 kg, continue to monitor renal function 08/14/2021 Encourage Pt to drink more water, she will need to f/u with her PCP as well (3) CAP (community acquired pneumonia): Code(s): J18.9 - Pneumonia, unspecified organism Status: Acute Assessment and Plan: Rocephin, occasional non-productive cough, WBC 5.5, no supplemental oxygen, monitoring VS and respiratory status 08/13/2021 Continue with Rocephin, WBC 4.2, room air, VSS, breathing not labored 08/14/2021 Pt IV came out this morning, will give Levaquin and send her home with same for 5 days. (4) Peptic ulcer disease: Code(s): K27.9 - Peptic ulcer, site unspecified, unspecified as acute or chronic, without hemorrhage or perforation Status: Acute Assessment and Plan: History of PUD, occasional abdominal pain usually after eating, no complaints post breakfast or lunch, Protonix and Tums added. 08/13/2021 No c/o abdominal pains, continue with current regimen. (5) UTI (urinary tract infection): Qualifiers: Hematuria presence: without hematuria Urinary tract infection type: site unspecified Qualified Code(s): N39.0 - Urinary tract infection, site not specified Code(s): N39.0 - Urinary tract infection, site not specified Status: Acute Assessment and Plan: 08/14/2021 Pt has received 2 doses of Rocephin, will send home with Levuin for her UTI and Pneumonia DS: Summary Hospital Course Hospital Course: Pt breathing improved, BNP trending down, obtaining ECHO prior to DC, Levaquin, Pt to establish with a PCP. Time Spent with Patient Time attestation: Total time spent providing and/or coordinating discharge services: < 30 minutes Exam Const: General: cooperative, comfortable, no acute distress, alert, awake and Physically active Nutritional Appearance: overweight Resp: Effort & Inspection: normal respiratory effort and Actively coughing (occasional) Auscultation: clear to auscultation bilaterally Cardio: Rate: regular rate Heart sounds: S1 normal heart sound present and S2 normal heart sound present GI: GI Palp: Yes Soft to palpation and No Tenderness to palpation present (GI) Auscultation: normal bowel sounds Skin: General skin exam: normal color and dry skin Neuro: General: oriented to person, oriented to place and oriented to time Cranial nerves: Yes CN's II-XII intact bilaterally (grossly intact), Yes facial symmetry, Yes Midline tongue present and Yes Normal hearing present Cognition (Neuro): normal cognition Speech: normal speech Motor exam (neuro): 5/5 motor strength present throughout Extrem: General: full ROM and no pedal edema Psych: Appearance: grossly normal Mental Status: mental status grossly normal Speech and movement: Normal speech and movement present Affec
--- NOTE | 2021-08-14 09:00 | ECHO_ITS ---
Patient Info Name: Christine Montes Age: 51 years : 1970 Gender: Female Ht: 62 in Wt: 200 lbs BSA: 2.04 m2 HR: 108 bpm BP: 103 / 76 mmHg Exam Date: 08/14/2021 10:46 AM Exam Location: [facility] Patient Status: Inpatient Admit Date: 08/11/2021 Staff Ordering Physician: Cornelius Fair Machine Skiver: Naren Cameron RDCS, RT Attending Provider: Fernando Cottrell MD Referring Physician: Manjula LUCIANO; Exam Type: CA echo doppler color flow Study Info Indications I50.9 - Heart failure, unspecified Complete two-dimensional, color flow and Doppler transthoracic echocardiogram is performed. Summary 1. Complete two-dimensional, color flow and Doppler transthoracic echocardiogram is performed. 2. Left ventricular chamber dimension is severely enlarged. 3. Left ventricular systolic function is severely reduced, estimated at 15-20%. 4. The left ventricular diastolic function is abnormal. 5. E/e' 11 is mildly elevated. 6. The mitral valve has mildly calcified annulus. 7. There is mild tricuspid valve regurgitation. 8. No pulmonary hypertension, estimated pulmonary arterial systolic pressure is 27 mmHg. Left Ventricle E/e' 11 is mildly elevated. Left ventricular chamber dimension is severely enlarged. Left ventricular systolic function is severely reduced, estimated at 15-20%. The left ventricular diastolic function is abnormal. Right Ventricle Right ventricular systolic function is normal and with normal TAPSE 2.0 cm. Right ventricular chamber dimension is normal. Left Atria Left atrial chamber dimension is normal. Right Atria Right atrial chamber dimension is normal. Aortic Valve The aortic valve is trileaflet. There is no aortic valve stenosis. There is no aortic valve regurgitation. Pulmonic Valve There is no pulmonic regurgitation. Mitral Valve The mitral valve has mildly calcified annulus. There is no mitral valve stenosis. There is trace mitral valve regurgitation. Tricuspid Valve There is mild tricuspid valve regurgitation. No pulmonary hypertension, estimated pulmonary arterial systolic pressure is 27 mmHg. Pericardium/Pleural There is no pericardial effusion. Inferior Vena Cava Normal inferior vena cava with >50% collapse upon inspiration consistent with normal right atrial pressure, 5 mmHg. Aorta The aortic root size at the sinus of Valsalva is normal. Left Ventricular Outflow Tract Name Value Normal LVOT 2D LVOT Diameter 2.0 cm LVOT Doppler LVOT Peak Velocity 68 cm/s LVOT Peak Gradient 2 mmHg LVOT Mean Gradient 1 mmHg LVOT VTI 9 cm LVOT VTI/AV VTI Ratio 0.5 LVOT Stroke Volume 28 ml Mitral Valve Name Value Normal MV Doppler MV Decel Kingfisher
[2021-08-14] MEDS: levoFLOXacin 500 MG TABLET PO (09:32)
[2021-08-14] MEDS: PANTOPRAZOLE SOD SESQUIHYDRATE 20 MG TAB PO (09:33)
[2021-08-14] MEDS: FUROSEMIDE 20 MG TABLET PO (09:34)
--- NOTE | 2021-08-14 13:30 | PC.NURSE ---
Pt is being discharged home and was given medication education sheets, fall risk prevention sheets, and follow-up with new primary information. Printed rx's were given to pt. Home medications were given to pt at time of discharge; no IV site at time of discharge. Pt ambulated to door accompanied by this RN and denies at questions at discharge.
--- NOTE | 2021-08-18 12:20 | PC.NURSE ---
Unable to contact for discharge call back.
== END 2021-08-14 13:50 | disposition home or self-care (01) | DRG 194 ==
LOC: CHSED 13:11 → CHS2ND 13:35
PROVIDERS: Nurse Practitioner Family; Admitting Provider Emergency Medicine; Emergency Provider Emergency Medicine; Visit Provider Emergency Medicine
DX: I50.9 Heart failure, unspecified (principal); K81.9 Cholecystitis, unspecified; N39.0 Urinary tract infection, site not specified; F17.210 Nicotine dependence, cigarettes, uncomplicated; Z20.822 Contact with and (suspected) exposure to COVID-19; Z90.710 Acquired absence of both cervix and uterus; Z87.11 Personal history of peptic ulcer disease; J44.0 Chronic obstructive pulmonary disease with (acute) lower respiratory infection; J18.9 Pneumonia, unspecified organism; N17.9 Acute kidney failure, unspecified; I07.1 Rheumatic tricuspid insufficiency; K27.9 Peptic ulcer, site unspecified, unspecified as acute or chronic, without hemorrhage or perforation; F17.290 Nicotine dependence, other tobacco product, uncomplicated
CPT/HCPCS: 36415; 36600; 71045; 71250; 74177; 80048; 80053; 81003; 82805; 83690; 83880; 84484; 85025; 85027; 85055; 87426; 93005; 93306; 96361; 96365; 96372; 96375; 99285; A9270; C9113; C9803; J0696; J1885; J1940; J2405; J7040; Q9967

== ENCOUNTER 2021-08-19 10:18 | Outpatient (CLI) | payer BC, SELFPAY ==
[2021-08-19 10:34] LABS: Basophils Percent Auto 1.7 % (0.0-1.0); Eosinophils Absolute Auto 0.22 K/mm3 (0.02-0.50); Eosinophils Percent Auto 3.7 % (1.0-6.0); Hematocrit 46.6 % (35.0-49.0); Hemoglobin 14.8 g/dL (12.0-15.0); Immature Granulocyte Absolute 0.01 K/mm3 (0.00-0.00); Immature Granulocyte Percent A 0.2 % (0.0-0.0); Lymphocytes Absolute Auto 2.45 K/mm3 (1.10-4.50); Lymphocytes Percent Auto 41.7 % (18.0-42.0); Mean Corpuscular HGB Conc 31.8 g/dL (32.0-36.0); Mean Corpuscular Hemoglobin 29.3 pg (27.0-31.0); Mean Corpuscular Volume 92.3 fL (78.0-102.0); Mean Platelet Volume 11.2 fl (9.2-11.8); Monocytes Absolute Auto 0.57 K/mm3 (0.10-0.90); Monocytes Percent Auto 9.7 % (2.0-11.0); Neutrophils Absolute Auto 2.5 K/mm3 (1.7-7.2); Platelet Count Result 152 K/mm3 (150-420); Red Blood Count 5.05 M/mm3 (4.20-5.40); Red Cell Distribution Width 13.4 % (11.6-14.4); White Blood Count 5.9 K/mm3 (4.8-10.8)
[2021-08-19 11:34] LABS: Alanine Aminotransferase 75 U/L (14-59); Albumin Level 3.8 g/dL (3.4-5.0); Alkaline Phosphatase 79 U/L (46-116); Anion Gap 8 mmol/L (8-16); Aspartate Amino Transferase 82 U/L (15-37); Bilirubin,Total 0.8 mg/dL (0.00-1.00); Blood Urea Nitrogen 19 mg/dL (7-18); Calcium 9.3 mg/dL (8.5-10.1); Carbon Dioxide 31 mmol/L (21-32); Chloride 105 mmol/L (98-108); Cholesterol 114 mg/dL (0-200); Estimated Glomerular Filt Rate 46; Glucose 90 mg/dL (70-99); HDL Direct 25 mg/dL (40-60); LDL Cholesterol Calculated 73 mg/dL (<130); NT Pro B Type Natriuretic Pept 9839 pg/mL (0-125); Osmolality Calculated 300 mOsm/kg (285-295); Potassium 4.1 mmol/L (3.5-5.1); Sodium 144 mmol/L (136-145); Triglycerides 80 mg/dL (0-150)
== END 2021-08-19 10:19 | disposition home or self-care (01) ==
LOC: CHSLAB 10:20
PROVIDERS: PCP Nurse Practitioner Family; Visit Provider Nurse Practitioner Family
DX: I11.0 Hypertensive heart disease with heart failure (principal); I50.9 Heart failure, unspecified; N17.9 Acute kidney failure, unspecified
CPT/HCPCS: 36415; 80053; 80061; 83880; 85025

== ENCOUNTER 2021-08-22 08:50 | Observation (INO) | payer BC, SELFPAY ==
[2021-08-22] VITALS (13 sets, daily range): BP systolic 101–144; BP diastolic 66–112; PULSE 84–115; RESP 18–27; TEMP 36.2–36.5; O2SAT 92–100; BMI 34.2
--- NOTE | ~2021-08-22 | XR_ITS ---
EXAMINATION: XR chest 1V portable EXAM DATE: 08/22/2021 09:58 INDICATION: Chest pain, shortness of breath. TECHNIQUE: Portable AP frontal chest x-ray was obtained. Comparison is made to prior examination from 08/11/2021. FINDINGS: There is moderate cardiomegaly. Pulmonary vascular congestion. There may be mild pulmonary edema. No confluent consolidation or pneumothorax. No sizable pleural effusion. There are no osseous abnormalities identified. Stable or slight improvement compared to prior study. IMPRESSION: Consistent with CHF exacerbation. Reviewed, dictated and finalized at location G.
--- NOTE | 2021-08-22 09:27 | ECG_ITS ---
Measurements Intervals Harper Rate: 109 P: 71 OK: 181 QRS: 77 QRSD: 99 T: 83 QT: 351 QTc: 475 Interpretive Statements SINUS TACHYCARDIA POSSIBLE LEFT ATRIAL ENLARGEMENT DELAYED PRECORDIAL R/S TRANSITION BORDERLINE ST-T WAVE ABNORMALITY- DIFFUSE LEADS ABNORMAL ECG Electronically Signed On 08-22-2021 9:35:47 CDT by Oh Bangura D.O.
[2021-08-22 09:58] LABS: Basophils Absolute Auto 0.06 K/mm3 (0.00-0.10); Basophils Percent Auto 1.1 % (0.0-1.0); Eosinophils Absolute Auto 0.11 K/mm3 (0.02-0.50); Hematocrit 45.7 % (35.0-49.0); Hemoglobin 14.6 g/dL (12.0-15.0); Immature Granulocyte Absolute 0.02 K/mm3 (0.00-0.00); Immature Granulocyte Percent A 0.4 % (0.0-0.0); Lymphocytes Absolute Auto 1.66 K/mm3 (1.10-4.50); Lymphocytes Percent Auto 30.8 % (18.0-42.0); Mean Corpuscular HGB Conc 31.9 g/dL (32.0-36.0); Mean Corpuscular Hemoglobin 29.2 pg (27.0-31.0); Mean Corpuscular Volume 91.4 fL (78.0-102.0); Mean Platelet Volume 12.5 fl (9.2-11.8); Monocytes Absolute Auto 0.35 K/mm3 (0.10-0.90); Monocytes Percent Auto 6.5 % (2.0-11.0); Neutrophils Absolute Auto 3.2 K/mm3 (1.7-7.2); Neutrophils Percent Auto 59.2 % (50.0-70.0); Platelet Count Result 113 K/mm3 (150-420); Red Cell Distribution Width 13.5 % (11.6-14.4); White Blood Count 5.4 K/mm3 (4.8-10.8)
[2021-08-22 10:16] LABS: Lactic Acid Reflex 1.5 mmol/L (0.4-2.0)
[2021-08-22 10:22] LABS: Alanine Aminotransferase 78 U/L (14-59); Albumin Level 3.6 g/dL (3.4-5.0); Alkaline Phosphatase 84 U/L (46-116); Anion Gap 12 mmol/L (8-16); Aspartate Amino Transferase 72 U/L (15-37); Blood Urea Nitrogen 16 mg/dL (7-18); Calcium 9.2 mg/dL (8.5-10.1); Carbon Dioxide 23 mmol/L (21-32); Chloride 106 mmol/L (98-108); Estimated CRCL calculation 65 ml/min; Estimated Glomerular Filt Rate 46; Glucose 115 mg/dL (70-99); NT Pro B Type Natriuretic Pept 9580 pg/mL (0-125); Osmolality Calculated 294 mOsm/kg (285-295); Potassium 4.4 mmol/L (3.5-5.1); Sodium 141 mmol/L (136-145); Troponin I 44.6 ng/L (0.00-60.4)
[2021-08-22 10:24] LABS: Ethanol < 3 mg/dL (0-6)
[2021-08-22] MEDS: methylPREDNISolone SOD SUCC 125 MG VIAL IV PUSH (10:29)
[2021-08-22] MEDS: FUROSEMIDE INJ 100 MG/10 ML VIAL 80 MG IV PUSH (10:42)
[2021-08-22] MEDS: METOPROLOL TARTRATE INJ 5 MG/5 ML VIAL 2.5 MG IV PUSH (10:42)
[2021-08-22 11:02] LABS: SARS-CoV-2 RNA PCR Negative (Negative)
[2021-08-22] MEDS: ALBUTEROL SULFATE (*SP) INHALER 2 PUFF INHALATION (11:14)
--- NOTE | 2021-08-22 11:59 | ED.CHESTPAIN ---
HPI - Chest Pain General Chief Complaint: Chest Pain Stated Complaint: SOB/dizziness Time Seen by Provider: 08/22/21 08:52 Source: patient and RN notes reviewed Mode of arrival: wheelchair Limitations: no limitations History of Present Illness complaint: other (increasing SOB) Pertinent past history: other (known CHF.) Onset (ago): day(s) (1 ) Timing of current episode: constant Prior episodes: Yes Onset: during rest and during exertion Pain location: other (no acute chest pain) Pain radiation: none Pain scale (0-10): 0 Relieving factors: nothing Exacerbating factors: exertion Associated symptoms: dyspnea and palpitations Treatment prior to arrival: none Related Data Allergies Allergy/AdvReac Type Severity Reaction Status Date / Time codeine Allergy Hives Verified 08/22/21 08:31 Review of Systems Review of Systems: All systems reviewed & are unremarkable except as noted in HPI and below PMFSH Past Medical History Medical History Cholecystitis Congestive heart failure HTN (hypertension) Peptic ulcer disease UTI (urinary tract infection) Surgical History Surgical History H/O tubal ligation History of hysterectomy Family History Family History Father Acute myocardial infarction Social History Social History Smoking packs per day: 0.5 Smoking cigarettes per day: 10.0 Years smoked: 41 Smoking pack-years: 20.50 Smoking status: Former smoker Tobacco type: cigarettes Second hand tobacco smoke exposure: Yes Smoking end date: 08/11/21 Alcohol intake: former Substance use: current Substance use type: marijuana Last use: 08/18/2021 Gender identity (if verbalized by the patient): Female Spiritual care concerns: No Exam Const: General: no acute distress and alert Nutritional Appearance: well nourished Orientation/consciousness: patient oriented x3 HENMT: Head: normal to inspection Ears: external ears normal and TM's normal bilaterally General nose exam: Normal external nose present and Normal nares present Mouth: Yes moist mucous membranes Eyes: Conjunctivae: conjunctivae normal Pupils: Equal, round and reactive pupils present EOM: EOMs intact bilaterally Neck: Neck: normal visual inspection Chest: Chest palpation & inspection: normal inspection of the chest Resp: Effort & Inspection: normal respiratory effort Auscultation: crackles Cardio: Rate: tachycardic GI: Auscultation: normal bowel sounds Other: flat, soft abdomen : General: Yes no CVA tenderness Back/Spine/Pelvis: Back: no CVA tenderness Skin: General skin exam: normal color Rashes: no rashes Neuro: General: patient oriented x3, moves all extremities, no meningeal signs, no focal motor deficits and CN's II-XI intact bilaterally Extrem: General: normal to inspection and no pedal edema Psych: Appearance: grossly normal Mental Status: mental status grossly normal Affect: normal affect Attitude: cooperative Thought content: Yes Normal thought content present Course Course Emergency Course: Pt SOB was significantly improved in the ED. Reevaluation(s) Reevaluation #1: Pt was in no acute distress in the ED. Date: 08/22/21 Time: 10:50 Vital Signs Vital signs: Vital Signs Pulse Rate 108 H 08/22/21 09:15 Respiratory Rate 18 08/22/21 09:15 Blood Pressure 138/112 H 08/22/21 09:15 Pulse Oximetry 100 08/22/21 09:15 Temperature 36.4 C L 08/22/21 20:00 Pulse Rate 84 08/22/21 20:49 Respiratory Rate 20 08/22/21 20:00 Blood Pressure 101/68 08/22/21 20:00 Pulse Oximetry 96 08/22/21 20:00 MDM - Chest Pain Differential Diagnosis Differential diagnosis: Likely other (CHF, COPD, ) Medical Records Data Attestation: I reviewed the patient's medica
--- NOTE | 2021-08-22 12:07 | PM.IMHP ---
H&P: HPI History of Present Illness Date/Time: 08/22/21 12:07 this is a [age]-year-old female who presented to the ED due to shortness of breath and dizziness. Patient has a past medical history, hypertension and peptic ulcer disease. Patient was recently admitted and discharged from our hospital for congestive heart failure and urinary tract infection. According to patient she has not been well since her discharge has had shortness of breath since her discharge. Patient notes that her shortness of breath worsened, she actually had to sit 2 hours before coming to our emergency department vital signs 130/99, 102, 22, 96% on room air, WBCs 5.4 hemoglobin 14.3, hematocrit 45.7, platelets 113, sodium 141, potassium 4.4, BUN 16, creatinine 1.22, glucose 155, lactic acid 1.5, AST 72, ALT 78, BUN 9580, Covid negative, chest x-ray indicates congestive heart failure, EKG sinus tach with a heart rate of 109 patient being admitted for congestive heart failure. Patient will need congestive heart failure education <FIDENCIO Matthews - Last Filed: 08/22/21 12:42> Chief Complaint: Shortness of breath and dizziness <FIDENCIO Matthews - Last Filed: 08/22/21 12:42> Review of Systems Review of Systems: A 14 organ system Review of Systems was performed and pertinent positives included in the HPI, otherwise remaining ROS is negative. <FIDENCIO Matthews - Last Filed: 08/22/21 12:42> [facility] Past Medical History Medical History: Medical History Cholecystitis Congestive heart failure HTN (hypertension) Peptic ulcer disease UTI (urinary tract infection) <FIDENCIO Matthews - Last Filed: 08/22/21 12:42> Surgical History Surgical History: Surgical History H/O tubal ligation History of hysterectomy <FIDENCIO Matthews - Last Filed: 08/22/21 12:42> Family History Family History: Family History Father Acute myocardial infarction <FIDENCIO Matthews - Last Filed: 08/22/21 12:42> Social History Social History: Social History Smoking packs per day: 0.5 Smoking cigarettes per day: 10.0 Years smoked: 41 Smoking pack-years: 20.50 Smoking status: Former smoker Tobacco type: cigarettes Second hand tobacco smoke exposure: Yes Smoking end date: 08/11/21 Alcohol intake: former Substance use: current Substance use type: marijuana Last use: 08/18/2021 Gender identity (if verbalized by the patient): Female Spiritual care concerns: No <FIDENCIO Matthews - Last Filed: 08/22/21 12:42> Meds Home Medications and Allergies Home medications: Home Medications Medication Instructions Recorded Confirmed Type albuterol sulfate [ProAir HFA] 2 puff INHALATION QID PRN #6.7 g 08/02/21 08/22/21 Rx pantoprazole [Protonix] 40 mg PO QAM 28 Days #28 tablet 08/02/21 08/22/21 Rx carvedilol [Coreg] 3.125 mg PO Q12HR #60 tablet 08/14/21 08/22/21 Rx lisinopril 5 mg PO DAILY #30 tablet 08/14/21 08/22/21 Rx ropinirole 0.25 mg PO HS #30 tablet 08/14/21 08/22/21 Rx spironolactone 25 mg tablet 25 mg PO DAILY #30 tablet 08/14/21 08/22/21 Rx escitalopram oxalate 10 mg tablet 10 mg PO DAILY #30 tablet 08/19/21 08/22/21 Rx furosemide 20 mg tablet 20 mg PO BID #14 tablet 08/19/21 08/22/21 Rx <FIDENCIO Matthews - Last Filed: 08/22/21 12:42> Allergies/Adverse reactions: Allergies Allergy/AdvReac Type Severity Reaction Status Date / Time codeine Allergy Hives Verified 08/22/21 08:31 <FIDENCIO Matthews - Last Filed: 08/22/21 12:42> Vital Signs Vital Signs - 24 hr 08/22/21 09:15 08/22/21 09:53 10/08/21 10:42 Temperature 97.7 F Pulse Rate 108 H 112 H 115 H Respiratory Rate 18 20 Blood Pressure 138/112 H 144/106 H Pulse Oximetr
--- NOTE | 2021-08-22 13:01 | PC.NURSE ---
Patient was offered ice chips, applesauce, and an emesis bag due to pt stating she felt nausea. A walker and gait belt were brought to her room for safer transfers. Patient is now resting in bed with head of the bed elevated and bed at the lowest setting for pt safety.
--- NOTE | 2021-08-22 13:14 | PC.NURSE ---
Patient was brought a warm blanket and requested the shades closed to try and get some rest. Call light within reach and bed in lowest position.
[2021-08-22] MEDS: ONDANSETRON INJ 4 MG/2 ML VIAL IV PUSH (13:25)
--- NOTE | 2021-08-22 14:06 | PC.NURSE ---
Patient rounding completed. Patient is currently sleeping with call light within reach.
--- NOTE | 2021-08-22 14:25 | PC.NURSE ---
Patient rounding complete. Christine remains abed HOB slightly elevated upper side rails up call light noted in place. Respirations even nonlabored. eyes closed.
[2021-08-22] MEDS: FUROSEMIDE INJ 40 MG/4 ML VIAL IV PUSH (16:43)
[2021-08-22] MEDS: LORazepam (*CRX) 0.5 MG TABLET PO (16:45)
[2021-08-22] MEDS: carvediloL 3.125 MG TABLET PO (20:49)
[2021-08-22] MEDS: rOPINIRole HCL 0.5 MG TABLET 0.25 MG PO (20:49)
--- NOTE | 2021-08-22 22:20 | PC.NURSE ---
pt sleeping, left undisturbed. call zepeda in reach
--- NOTE | 2021-08-22 22:42 | PC.NURSE ---
Report to DAR Navas
[2021-08-23] VITALS (9 sets, daily range): BP systolic 103–112; BP diastolic 72–98; PULSE 84–107; RESP 14–20; TEMP 36.4–36.9; O2SAT 91–98
[2021-08-23 05:07] LABS: Hematocrit 44.5 % (35.0-49.0); Hemoglobin 14.1 g/dL (12.0-15.0); Mean Corpuscular HGB Conc 31.7 g/dL (32.0-36.0); Mean Corpuscular Hemoglobin 29.4 pg (27.0-31.0); Mean Corpuscular Volume 92.9 fL (78.0-102.0); Mean Platelet Volume 12.8 fl (9.2-11.8); Platelet Count Result 129 K/mm3 (150-420); Red Blood Count 4.79 M/mm3 (4.20-5.40); Red Cell Distribution Width 13.2 % (11.6-14.4); White Blood Count 9.3 K/mm3 (4.8-10.8)
[2021-08-23 05:24] LABS: Alanine Aminotransferase 61 U/L (14-59); Albumin Level 3.5 g/dL (3.4-5.0); Alkaline Phosphatase 77 U/L (46-116); Anion Gap 10 mmol/L (8-16); Aspartate Amino Transferase 42 U/L (15-37); Blood Urea Nitrogen 22 mg/dL (7-18); Calcium 9.3 mg/dL (8.5-10.1); Carbon Dioxide 27 mmol/L (21-32); Chloride 104 mmol/L (98-108); Estimated CRCL calculation 50 ml/min; Estimated Glomerular Filt Rate 46; Glucose 145 mg/dL (70-99); Magnesium 1.8 mg/dL (1.8-2.4); Osmolality Calculated 298 mOsm/kg (285-295); Potassium 3.9 mmol/L (3.5-5.1); Sodium 141 mmol/L (136-145); Total Protein 7.9 g/dL (6.4-8.2)
[2021-08-23 05:43] LABS: NT Pro B Type Natriuretic Pept 11757 pg/mL (0-125)
[2021-08-23] MEDS: PANTOPRAZOLE 40 MG TABLET PO (08:54)
[2021-08-23] MEDS: ENOXAPARIN 40 MG/0.4 ML SYRINGE SUB-Q (08:54)
[2021-08-23] MEDS: carvediloL 3.125 MG TABLET PO ×2 (08:54→20:32)
[2021-08-23] MEDS: FUROSEMIDE INJ 40 MG/4 ML VIAL IV PUSH ×2 (08:54→17:27)
[2021-08-23] MEDS: lisinopriL 5 MG TABLET PO (08:55)
[2021-08-23] MEDS: SPIRONOLACTONE 25 MG TABLET PO (08:55)
[2021-08-23] MEDS: ESCITALOPRAM OXALATE 10 MG TABLET PO (08:55)
[2021-08-23] MEDS: ALBUTEROL SULFATE (*SP) INHALER 2 PUFF INHALATION (08:59)
--- NOTE | 2021-08-23 10:59 | P.PN_ITS ---
Progress Note: A&P Assessment and Plan (1) Congestive heart failure: Code(s): I50.9 - Heart failure, unspecified Status: Acute Assessment and Plan: * Echo on 08/14/2021 indicates - Left ventricular chamber dimension is severely enlarged. - Left ventricular systolic function is severely reduced, estimated at 15-20%. -The left ventricular diastolic function is abnormal. - E/e' 11 is mildly elevated. - The mitral valve has mildly calcified annulus. -There is mild tricuspid valve regurgitation. * Chest x-ray indicates congestive heart failure * BNP 9580>03811 * Patient given 80 mg of Lasix in the ED, will start 40 p.o. twice daily * Troponin 44.6 * Will arrange for a outpatient cardiology visit before discharge * Patient started on Entresto lisinopril discontinued (2) Elevated liver enzymes: Code(s): R74.8 - Abnormal levels of other serum enzymes Status: Acute Assessment and Plan: * Elevated liver enzyme * ast72 >42alt 78>61 * Etiology unknown * We will closely monitor * EtOH alcohol level within normal limits (3) Acute renal injury: Code(s): N17.9 - Acute kidney failure, unspecified Status: Acute Assessment and Plan: * BUN 16 creatinine 1.22 and GFR 46. 1.20 appears to be the baseline creatinine for this patient * Renal dose medication * Avoid nephrotoxic agent * CMP in a.m. (4) Anxiety: Code(s): F41.9 - Anxiety disorder, unspecified Status: Acute Assessment and Plan: * Started Ativan (5) HTN (hypertension): Code(s): I10 - Essential (primary) hypertension Status: Acute Assessment and Plan: * Stable * Continue home medication * Will adjust medication as needed * Vital signs as ordered (6) Peptic ulcer disease: Code(s): K27.9 - Peptic ulcer, site unspecified, unspecified as acute or chronic, without hemorrhage or perforation Status: Acute Assessment and Plan: * Continue pantoprazole (7) Tachycardia: Code(s): R00.0 - Tachycardia, unspecified Status: Acute Assessment and Plan: * EKG indicates sinus tach with a heart rate of 109 on admission currently wnl * Patient given metoprolol 2.51time in ED * Secondary to congestive heart failure * Will treat underlying cause * Continue telemetry * Troponin within normal limits x2 Subjective Date/time seen: 08/23/21 10:59 patient notes that she is no longer experiencing shortness of breath or dizziness, her night was uneventful. Patient has not been referred to a rpg programmer analyst we will arrange an appointment with a rpg programmer analyst before her discharge. Due to outpatient medical treatment failure she will remain until she becomes stabilized. The patient denies SOB, CP, palpitation, extremity numbness, lightheadedness, dizziness, constipation, diarrhea, chills, or fever. Review of Systems Review of Systems: A 14 organ system Review of Systems was performed and pertinent positives included in the HPI, otherwise remaining ROS is negative. Exam Narrative: GENERAL: This is a well-nourished, well-developed patient, in no apparent distress. HEAD: normocephalic, atraumatic. EYES: PERRL. Sclera clear/white. Vision is grossly intact. EARS: External ears normal, auditory canals clear and without drainage, TMs normal without perforation. Hearing grossly intact. NOSE: External nose normal with no obvious nasal discharge, nares without redness, no rhinorrhea. THROAT: Mucous membranes
--- NOTE | 2021-08-23 10:59 | WPDPN ---
Progress Note: A&P Assessment and Plan (1) Congestive heart failure: Code(s): I50.9 - Heart failure, unspecified Status: Acute Assessment and Plan: Echo on 08/14/2021 indicates - Left ventricular chamber dimension is severely enlarged. - Left ventricular systolic function is severely reduced, estimated at 15-20%. -The left ventricular diastolic function is abnormal. - E/e' 11 is mildly elevated. - The mitral valve has mildly calcified annulus. -There is mild tricuspid valve regurgitation. Chest x-ray indicates congestive heart failure BNP 9580>73934 Patient given 80 mg of Lasix in the ED, will start 40 p.o. twice daily Troponin 44.6 Will arrange for a outpatient cardiology visit before discharge Patient started on Entresto lisinopril discontinued (2) Elevated liver enzymes: Code(s): R74.8 - Abnormal levels of other serum enzymes Status: Acute Assessment and Plan: Elevated liver enzyme ast72 >42alt 78>61 Etiology unknown We will closely monitor EtOH alcohol level within normal limits (3) Acute renal injury: Code(s): N17.9 - Acute kidney failure, unspecified Status: Acute Assessment and Plan: BUN 16 creatinine 1.22 and GFR 46. 1.20 appears to be the baseline creatinine for this patient Renal dose medication Avoid nephrotoxic agent CMP in a.m. (4) Anxiety: Code(s): F41.9 - Anxiety disorder, unspecified Status: Acute Assessment and Plan: Started Ativan (5) HTN (hypertension): Code(s): I10 - Essential (primary) hypertension Status: Acute Assessment and Plan: Stable Continue home medication Will adjust medication as needed Vital signs as ordered (6) Peptic ulcer disease: Code(s): K27.9 - Peptic ulcer, site unspecified, unspecified as acute or chronic, without hemorrhage or perforation Status: Acute Assessment and Plan: Continue pantoprazole (7) Tachycardia: Code(s): R00.0 - Tachycardia, unspecified Status: Acute Assessment and Plan: EKG indicates sinus tach with a heart rate of 109 on admission currently wnl Patient given metoprolol 2.51time in ED Secondary to congestive heart failure Will treat underlying cause Continue telemetry Troponin within normal limits x2 Subjective Date/time seen: 08/23/21 10:59 patient notes that she is no longer experiencing shortness of breath or dizziness, her night was uneventful. Patient has not been referred to a heater operator we will arrange an appointment with a heater operator before her discharge. Due to outpatient medical treatment failure she will remain until she becomes stabilized. The patient denies SOB, CP, palpitation, extremity numbness, lightheadedness, dizziness, constipation, diarrhea, chills, or fever. Review of Systems Review of Systems: A 14 organ system Review of Systems was performed and pertinent positives included in the HPI, otherwise remaining ROS is negative. Exam Narrative: GENERAL: This is a well-nourished, well-developed patient, in no apparent distress. HEAD: normocephalic, atraumatic. EYES: PERRL. Sclera clear/white. Vision is grossly intact. EARS: External ears normal, auditory canals clear and without drainage, TMs normal without perforation. Hearing grossly intact. NOSE: External nose normal with no obvious nasal discharge, nares without redness, no rhinorrhea. THROAT: Mucous membranes moist, posterior pharynx clear. NECK: Neck supple, non-tender without lymphadenopathy, masses or thyromegaly. CARDIOVASCULAR: Regular rate and rhythm without murmurs, gallops, or rubs. RESPIRATORY: Clear to auscultation. Breath sounds equal bilaterally. No wheezes, rales, or rhonchi. GASTROINTESTINAL: Abdomen soft, non-tender, nondistended. Bowel sounds are active. No hepato-splenomegaly, or palpable masses. No guarding. SKIN: warm, intact with n
[2021-08-23 13:39] LABS: Add Urine Microscopic? NO; Appearance Urine Clear (Clear); Bilirubin Urine Negative (Negative); Blood Urine Negative (Negative); Color Urine Yellow (Yellow); Glucose Urine UA Negative (Negative); Ketones Urine Negative (Negative); Leukocyte Esterase Ur Negative (Negative); Nitrate Urine Negative (Negative); Protein Urine Negative (Negative); Specific Grav Ur >= 1.030 (1.010-1.020); Urobilinogen Urine 0.2 mg/dL (0.2-1.0); pH Urine 5.5 (5.0-8.0)
--- NOTE | 2021-08-23 13:42 | PC.NURSE ---
Pt has been resting comfortably in her room. No complaints.
[2021-08-23 13:46] LABS: Amphetamine Screen Urine Positive (Negative); Barbiturate Screen Urine Negative (Negative); Benzodiazepines Screen Urine Negative (Negative); Cannabinoid Screen Urine Positive (Negative); Cocaine Screen Urine Negative (Negative); Methadone Screen Urine Negative (Negative); Opiate Screen Urine Negative (Negative); Phencyclidine Screen Urine Negative (Negative)
[2021-08-23] MEDS: rOPINIRole HCL 0.5 MG TABLET 0.25 MG PO (20:32)
[2021-08-23] MEDS: SACUBITRIL/VALSARTAN 24-26 MG TABLET 1 TAB PO (20:33)
[2021-08-24] VITALS (10 sets, daily range): BP systolic 100–118; BP diastolic 73–90; PULSE 70–103; RESP 14–20; TEMP 36–36.5; O2SAT 93–96
[2021-08-24 07:14] LABS: Hematocrit 49.8 % (35.0-49.0); Hemoglobin 15.9 g/dL (12.0-15.0); Mean Corpuscular HGB Conc 31.9 g/dL (32.0-36.0); Mean Corpuscular Volume 90.7 fL (78.0-102.0); Mean Platelet Volume 12.1 fl (9.2-11.8); Platelet Count Result 137 K/mm3 (150-420); Red Blood Count 5.49 M/mm3 (4.20-5.40); Red Cell Distribution Width 13.3 % (11.6-14.4); White Blood Count 7.7 K/mm3 (4.8-10.8)
[2021-08-24 07:32] LABS: Alanine Aminotransferase 52 U/L (14-59); Albumin Level 3.3 g/dL (3.4-5.0); Alkaline Phosphatase 74 U/L (46-116); Anion Gap 7 mmol/L (8-16); Aspartate Amino Transferase 35 U/L (15-37); Bilirubin,Total 0.8 mg/dL (0.00-1.00); Blood Urea Nitrogen 27 mg/dL (7-18); Carbon Dioxide 29 mmol/L (21-32); Chloride 104 mmol/L (98-108); Estimated CRCL calculation 53 ml/min; Estimated Glomerular Filt Rate 50; Glucose 98 mg/dL (70-99); Osmolality Calculated 295 mOsm/kg (285-295); Potassium 3.6 mmol/L (3.5-5.1); Sodium 140 mmol/L (136-145); Total Protein 7.8 g/dL (6.4-8.2)
--- NOTE | 2021-08-24 08:17 | PC.NURSE ---
Pt up in bed eating breakfast no complaints.
--- NOTE | 2021-08-24 08:55 | P.PN_ITS ---
Progress Note: A&P Assessment and Plan (1) Congestive heart failure: Code(s): I50.9 - Heart failure, unspecified Status: Acute Assessment and Plan: * Echo on 08/14/2021 indicates - Left ventricular chamber dimension is severely enlarged. - Left ventricular systolic function is severely reduced, estimated at 15-20%. -The left ventricular diastolic function is abnormal. - E/e' 11 is mildly elevated. - The mitral valve has mildly calcified annulus. -There is mild tricuspid valve regurgitation. * Chest x-ray indicates congestive heart failure * BNP 9580>70273> * Patient given 80 mg of Lasix in the ED, will start 40 p.o. twice daily * Troponin 44.6 * Will arrange for a outpatient cardiology visit before discharge * Patient started on Entresto lisinopril discontinued (2) Elevated liver enzymes: Code(s): R74.8 - Abnormal levels of other serum enzymes Status: Acute Assessment and Plan: * Elevated liver enzyme * ast72 >42> WNL alt 78>61>WNL * Etiology unknown * We will closely monitor * EtOH alcohol level within normal limits (3) Acute renal injury: Code(s): N17.9 - Acute kidney failure, unspecified Status: Acute Assessment and Plan: * BUN 16 creatinine 1.22 >1.15and GFR 46>50. 1.20 appears to be the baseline creatinine for this patient * Renal dose medication * Avoid nephrotoxic agent * CMP in a.m. (4) Anxiety: Code(s): F41.9 - Anxiety disorder, unspecified Status: Acute Assessment and Plan: * Started Ativan (5) HTN (hypertension): Code(s): I10 - Essential (primary) hypertension Status: Acute Assessment and Plan: * Stable * Continue home medication * Will adjust medication as needed * Vital signs as ordered (6) Peptic ulcer disease: Code(s): K27.9 - Peptic ulcer, site unspecified, unspecified as acute or chronic, without hemorrhage or perforation Status: Acute Assessment and Plan: * Continue pantoprazole (7) Tachycardia: Code(s): R00.0 - Tachycardia, unspecified Status: Acute Assessment and Plan: * EKG indicates sinus tach with a heart rate of 109 on admission currently wnl * Patient given metoprolol 2.51time in ED * Secondary to congestive heart failure * Will treat underlying cause * Continue telemetry * Troponin within normal limits x2 Subjective Date/time seen: 08/24/21 08:55 patient condition has improved she has not been experiencing shortness of breath. Patient's night was uneventful. She will more than likely discharge tomorrow if her condition continues to improve. The patient denies SOB, CP, palpitation, extremity numbness, lightheadedness, dizziness, constipation, diarrhea, chills, or fever. Patient will be given information on congestive heart failure Review of Systems Review of Systems: A 14 organ system Review of Systems was performed and pertinent positives included in the HPI, otherwise remaining ROS is negative. Exam Narrative: GENERAL: This is a well-nourished, well-developed patient, in no apparent distress. HEAD: normocephalic, atraumatic. EYES: PERRL. Sclera clear/white. Vision is grossly intact. EARS: External ears normal, auditory canals clear and without drainage, TMs normal without perforation. Hearing grossly intact. NOSE: External nose normal with no obvious nasal discharge, nares without redness, no rhinorrhea. THROAT: Mucous membranes moist, posterior pharynx clear.
--- NOTE | 2021-08-24 08:55 | WPDPN ---
Progress Note: A&P Assessment and Plan (1) Congestive heart failure: Code(s): I50.9 - Heart failure, unspecified Status: Acute Assessment and Plan: Echo on 08/14/2021 indicates - Left ventricular chamber dimension is severely enlarged. - Left ventricular systolic function is severely reduced, estimated at 15-20%. -The left ventricular diastolic function is abnormal. - E/e' 11 is mildly elevated. - The mitral valve has mildly calcified annulus. -There is mild tricuspid valve regurgitation. Chest x-ray indicates congestive heart failure BNP 9580>26793> Patient given 80 mg of Lasix in the ED, will start 40 p.o. twice daily Troponin 44.6 Will arrange for a outpatient cardiology visit before discharge Patient started on Entresto lisinopril discontinued (2) Elevated liver enzymes: Code(s): R74.8 - Abnormal levels of other serum enzymes Status: Acute Assessment and Plan: Elevated liver enzyme ast72 >42> WNL alt 78>61>WNL Etiology unknown We will closely monitor EtOH alcohol level within normal limits (3) Acute renal injury: Code(s): N17.9 - Acute kidney failure, unspecified Status: Acute Assessment and Plan: BUN 16 creatinine 1.22 >1.15and GFR 46>50. 1.20 appears to be the baseline creatinine for this patient Renal dose medication Avoid nephrotoxic agent CMP in a.m. (4) Anxiety: Code(s): F41.9 - Anxiety disorder, unspecified Status: Acute Assessment and Plan: Started Ativan (5) HTN (hypertension): Code(s): I10 - Essential (primary) hypertension Status: Acute Assessment and Plan: Stable Continue home medication Will adjust medication as needed Vital signs as ordered (6) Peptic ulcer disease: Code(s): K27.9 - Peptic ulcer, site unspecified, unspecified as acute or chronic, without hemorrhage or perforation Status: Acute Assessment and Plan: Continue pantoprazole (7) Tachycardia: Code(s): R00.0 - Tachycardia, unspecified Status: Acute Assessment and Plan: EKG indicates sinus tach with a heart rate of 109 on admission currently wnl Patient given metoprolol 2.51time in ED Secondary to congestive heart failure Will treat underlying cause Continue telemetry Troponin within normal limits x2 Subjective Date/time seen: 08/24/21 08:55 patient condition has improved she has not been experiencing shortness of breath. Patient's night was uneventful. She will more than likely discharge tomorrow if her condition continues to improve. The patient denies SOB, CP, palpitation, extremity numbness, lightheadedness, dizziness, constipation, diarrhea, chills, or fever. Patient will be given information on congestive heart failure Review of Systems Review of Systems: A 14 organ system Review of Systems was performed and pertinent positives included in the HPI, otherwise remaining ROS is negative. Exam Narrative: GENERAL: This is a well-nourished, well-developed patient, in no apparent distress. HEAD: normocephalic, atraumatic. EYES: PERRL. Sclera clear/white. Vision is grossly intact. EARS: External ears normal, auditory canals clear and without drainage, TMs normal without perforation. Hearing grossly intact. NOSE: External nose normal with no obvious nasal discharge, nares without redness, no rhinorrhea. THROAT: Mucous membranes moist, posterior pharynx clear. NECK: Neck supple, non-tender without lymphadenopathy, masses or thyromegaly. CARDIOVASCULAR: Regular rate and rhythm without murmurs, gallops, or rubs. RESPIRATORY: Clear to auscultation. Breath sounds equal bilaterally. No wheezes, rales, or rhonchi. GASTROINTESTINAL: Abdomen soft, non-tender, nondistended. Bowel sounds are active. No hepato-splenomegaly, or palpable masses. No guarding. SKIN: warm, intact with no suspicious lesions or rash, good lisa
[2021-08-24] MEDS: FUROSEMIDE INJ 40 MG/4 ML VIAL IV PUSH ×2 (09:00→17:07)
[2021-08-24] MEDS: PANTOPRAZOLE 40 MG TABLET PO (09:16)
[2021-08-24] MEDS: SPIRONOLACTONE 25 MG TABLET PO (09:16)
[2021-08-24] MEDS: ESCITALOPRAM OXALATE 10 MG TABLET PO (09:16)
[2021-08-24] MEDS: carvediloL 3.125 MG TABLET PO ×2 (09:16→20:28)
[2021-08-24] MEDS: SACUBITRIL/VALSARTAN 24-26 MG TABLET 1 TAB PO ×2 (09:16→20:28)
[2021-08-24 09:57] LABS: NT Pro B Type Natriuretic Pept 2578 pg/mL (0-125)
--- NOTE | 2021-08-24 11:04 | PC.NURSE ---
Pt resting in bed. No complaints.
[2021-08-24] MEDS: ENOXAPARIN 40 MG/0.4 ML SYRINGE SUB-Q (12:42)
--- NOTE | 2021-08-24 13:14 | PC.NURSE ---
Pt lying in bed watching [employer] on her computer. States she feels very tired all the time.
[2021-08-24] MEDS: rOPINIRole HCL 0.5 MG TABLET 0.25 MG PO (20:27)
[2021-08-25] VITALS: BP 107/81; PULSE 76; RESP 18; TEMP 36; O2SAT 94
[2021-08-25 04:00] VITALS: BP 100/81; PULSE 81; RESP 20; TEMP 36.6; O2SAT 90
[2021-08-25 05:25] LABS: Hematocrit 57.1 % (35.0-49.0); Hemoglobin 18.5 g/dL (12.0-15.0); Mean Corpuscular HGB Conc 32.4 g/dL (32.0-36.0); Mean Corpuscular Hemoglobin 28.7 pg (27.0-31.0); Mean Corpuscular Volume 88.7 fL (78.0-102.0); Mean Platelet Volume 12.7 fl (9.2-11.8); Platelet Count Result 194 K/mm3 (150-420); Red Blood Count 6.44 M/mm3 (4.20-5.40); Red Cell Distribution Width 13.3 % (11.6-14.4); White Blood Count 7.6 K/mm3 (4.8-10.8)
[2021-08-25 05:47] LABS: Alanine Aminotransferase 64 U/L (14-59); Albumin Level 3.4 g/dL (3.4-5.0); Alkaline Phosphatase 82 U/L (46-116); Anion Gap 12 mmol/L (8-16); Aspartate Amino Transferase 64 U/L (15-37); Blood Urea Nitrogen 34 mg/dL (7-18); Calcium 9.6 mg/dL (8.5-10.1); Carbon Dioxide 26 mmol/L (21-32); Chloride 103 mmol/L (98-108); Estimated CRCL calculation 56 ml/min; Estimated Glomerular Filt Rate 52; Glucose 115 mg/dL (70-99); Magnesium 2.2 mg/dL (1.8-2.4); Osmolality Calculated 300 mOsm/kg (285-295); Potassium 3.9 mmol/L (3.5-5.1); Sodium 141 mmol/L (136-145); Total Protein 8.2 g/dL (6.4-8.2)
[2021-08-25 08:00] VITALS: BP 115/98; PULSE 103; PULSE 89; RESP 16; TEMP 36.4; O2SAT 95
[2021-08-25] MEDS: ONDANSETRON INJ 4 MG/2 ML VIAL IV PUSH (08:00)
[2021-08-25 08:07] LABS: NT Pro B Type Natriuretic Pept 1229 pg/mL (0-125)
--- NOTE | 2021-08-25 08:08 | PC.NURSE ---
Pt given Zofran for complaint of nausea.
--- NOTE | 2021-08-25 09:15 | P.DS_ITS ---
DS: Admitting Diagnosis Discharge Date 08/25/2021 <FIDENCIO Matthews - Last Filed: 08/25/21 11:11> Admitting Diagnosis Congestive heart failure <FIDENCIO Matthews - Last Filed: 08/25/21 11:11> DS: Discharge Diagnosis Discharge Diagnosis (1) Congestive heart failure: Code(s): I50.9 - Heart failure, unspecified <FIDENCIO Matthews - Last Filed: 08/25/21 11:11> Status: Acute <FIDENCIO Matthews - Last Filed: 08/25/21 11:11> Assessment and Plan: * Echo on 08/14/2021 indicates - Left ventricular chamber dimension is severely enlarged. - Left ventricular systolic function is severely reduced, estimated at 15-20%. -The left ventricular diastolic function is abnormal. - E/e' 11 is mildly elevated. - The mitral valve has mildly calcified annulus. -There is mild tricuspid valve regurgitation. * Chest x-ray indicates congestive heart failure * BNP 9580>98086>2578>1229 * Patient given 80 mg of Lasix in the ED, will start 40 p.o. twice daily * Troponin 44.6 * Patient given an to Dr. Bangura's office to make an a follow-up appointment <FIDENCIO Matthews - Last Filed: 08/25/21 11:11> (2) Elevated liver enzymes: Code(s): R74.8 - Abnormal levels of other serum enzymes <FIDENCIO Matthews - Last Filed: 08/25/21 11:11> Status: Acute <FIDENCIO Matthews - Last Filed: 08/25/21 11:11> Assessment and Plan: * Elevated liver enzyme * ast72>64 alt 78>64 * Etiology unknown * We will closely monitor * EtOH alcohol level within normal limits <FIDENCIO Matthews - Last Filed: 08/25/21 11:11> (3) Acute renal injury: Code(s): N17.9 - Acute kidney failure, unspecified <FIDENCIO Matthews - Last Filed: 08/25/21 11:11> Status: Acute <RAINE MatthewsPTerriC - Last Filed: 08/25/21 11:11> Assessment and Plan: * BUN 16>22>27>34 creatinine 1.22 >1.15>1.10and GFR 46. 1.20 appears to be the baseline creatinine for this patient> * Continue low-dose lisinopril * Renal dose medication * Avoid nephrotoxic agent * CMP in a.m. <Lucastasha TyFIDENCIO Thomas - Last Filed: 08/25/21 11:11> (4) Anxiety: Code(s): F41.9 - Anxiety disorder, unspecified <Samuel LedezmaJAVEDC - Last Filed: 08/25/21 11:11> Status: Acute <Samuel LedezmaVANDATerriJohny - Last Filed: 08/25/21 11:11> Assessment and Plan: * Started Ativan <Samuel Arenas VANDA LedezmaTerriC - Last Filed: 08/25/21 11:11> (5) HTN (hypertension): Code(s): I10 - Essential (primary) hypertension <Samuel LedezmaJAVEDC - Last Filed: 08/25/21 11:11> Status: Acute <Samuel LedezmaVANDATerriJohny - Last Filed: 08/25/21 11:11> Assessment and Plan: * Stable * Continue home medication * Will adjust medication as needed * Vital signs as ordered <Samuel LedezmaVANDATerriJohny - Last Filed: 08/25/21 11:11> (6) Peptic ulcer disease: Code(s): K27.9 - Peptic ulcer, site unspecified, unspecified as acute or chronic, without hemorrhage or perforation <Samuel CrawfordJAVED ThomasC - Last Filed: 08/25/21 11:11> Status: Acute <Lucastasha TyVANDA ThomasTerriJohny - Last Filed: 08/25/21 11:11> Assessment and Plan: * Continue pantoprazole <Lucastasha TyFIDENCIO Thomas - Last Filed: 08/25/21 11:11> (7) Tachycardia: Code(s): R00.0 - Tachycardia, unspecified <FIDENCIO Matthews - Last Jean-Claude ed: 08/25/21 11:11> Status: Acute <Samuel Ledezma, VANDA-C - Last Filed:
--- NOTE | 2021-08-25 09:15 | PM.DS ---
DS: Admitting Diagnosis Discharge Date 08/25/2021 <FDIENCIO Matthews - Last Filed: 08/25/21 11:11> Admitting Diagnosis Congestive heart failure <FIDENCIO Matthews - Last Filed: 08/25/21 11:11> DS: Discharge Diagnosis Discharge Diagnosis (1) Congestive heart failure: Code(s): I50.9 - Heart failure, unspecified <FIDENCIO Matthews - Last Filed: 08/25/21 11:11> Status: Acute <Samuel TyFIDENCIO Thomas - Last Filed: 08/25/21 11:11> Assessment and Plan: Echo on 08/14/2021 indicates - Left ventricular chamber dimension is severely enlarged. - Left ventricular systolic function is severely reduced, estimated at 15-20%. -The left ventricular diastolic function is abnormal. - E/e' 11 is mildly elevated. - The mitral valve has mildly calcified annulus. -There is mild tricuspid valve regurgitation. Chest x-ray indicates congestive heart failure BNP 9580>05335>2578>1229 Patient given 80 mg of Lasix in the ED, will start 40 p.o. twice daily Troponin 44.6 Patient given an to Dr. Bangura's office to make an a follow-up appointment <FIDENCIO Matthews - Last Filed: 08/25/21 11:11> (2) Elevated liver enzymes: Code(s): R74.8 - Abnormal levels of other serum enzymes <FIDENCIO Matthews - Last Filed: 08/25/21 11:11> Status: Acute <FIDENCIO Matthews - Last Filed: 08/25/21 11:11> Assessment and Plan: Elevated liver enzyme ast72>64 alt 78>64 Etiology unknown We will closely monitor EtOH alcohol level within normal limits <FIDENCIO Matthews - Last Filed: 08/25/21 11:11> (3) Acute renal injury: Code(s): N17.9 - Acute kidney failure, unspecified <FIDENCIO Matthews - Last Filed: 08/25/21 11:11> Status: Acute <FIDENCIO Matthews - Last Filed: 08/25/21 11:11> Assessment and Plan: BUN 16>22>27>34 creatinine 1.22 >1.15>1.10and GFR 46. 1.20 appears to be the baseline creatinine for this patient> Continue low-dose lisinopril Renal dose medication Avoid nephrotoxic agent CMP in a.m. <FIDENCIO Matthews - Last Filed: 08/25/21 11:11> (4) Anxiety: Code(s): F41.9 - Anxiety disorder, unspecified <FIDENCIO Matthews - Last Filed: 08/25/21 11:11> Status: Acute <FIDENCIO Matthews - Last Filed: 08/25/21 11:11> Assessment and Plan: Started Ativan <FIDENCIO Matthews - Last Filed: 08/25/21 11:11> (5) HTN (hypertension): Code(s): I10 - Essential (primary) hypertension <FIDENCIO Matthews - Last Filed: 08/25/21 11:11> Status: Acute <FIDENCIO Matthews - Last Filed: 08/25/21 11:11> Assessment and Plan: Stable Continue home medication Will adjust medication as needed Vital signs as ordered <FIDENCIO Matthews - Last Filed: 08/25/21 11:11> (6) Peptic ulcer disease: Code(s): K27.9 - Peptic ulcer, site unspecified, unspecified as acute or chronic, without hemorrhage or perforation <FIDENCIO Matthews - Last Filed: 08/25/21 11:11> Status: Acute <FIDENCIO Matthews - Last Filed: 08/25/21 11:11> Assessment and Plan: Continue pantoprazole <FIDENCIO Matthews - Last Filed: 08/25/21 11:11> (7) Tachycardia: Code(s): R00.0 - Tachycardia, unspecified <FIDENCIO Matthews - Last Filed: 08/25/21 11:11> Status: Acute <FIDENCIO Matthews - Last Filed: 08/25/21 11:11> Assessment and Plan: EKG indicates sinus tach with a heart rate of 109 Patient given metoprolol 2.51time in ED Secondary to congestive heart failure Will treat underlying cause Continue telemetry [id number] <VANDA Matthews-C - Last Filed: 08/25/21 11:11> (8) Substance abuse: Code(s): F19.10 - Other psychoactive subst
[2021-08-25] MEDS: FUROSEMIDE INJ 40 MG/4 ML VIAL IV PUSH (09:21)
[2021-08-25] MEDS: SACUBITRIL/VALSARTAN 24-26 MG TABLET 1 TAB PO (09:21)
[2021-08-25] MEDS: ENOXAPARIN 40 MG/0.4 ML SYRINGE SUB-Q (09:21)
[2021-08-25 09:22] VITALS: PULSE 86
[2021-08-25] MEDS: carvediloL 3.125 MG TABLET PO (09:22)
[2021-08-25] MEDS: PANTOPRAZOLE 40 MG TABLET PO (09:22)
[2021-08-25] MEDS: ESCITALOPRAM OXALATE 10 MG TABLET PO (09:22)
[2021-08-25] MEDS: SPIRONOLACTONE 25 MG TABLET PO (09:22)
--- NOTE | 2021-08-25 10:44 | PC.NURSE ---
Call to Dr Bangura's office, will not schedule, states has been expecting patient to call and has all of her information from her PMD and will make her appointment once she calls them after she is discharged.
--- NOTE | 2021-08-25 11:56 | PC.NURSE ---
Pt discharged to home. RN gave pt discharge instructions regarding Salt restrictions, fluid restriction of 1500ml per day. Water pitcher sent with pt. Medication instruction done and Pt instructed to call Dr. Bangura's office today to make an appointment to follow up on her Cardiac issues. Pt verbalized understanding of instructions. RN took pt to her truck via .
--- NOTE | 2021-08-27 10:27 | PC.NURSE ---
Pt states she received and understood her discharge instructions. Pt also states everything was fine .
== END 2021-08-25 11:30 | disposition home or self-care (01) ==
LOC: CHSED 12:00 → CHS2ND 12:05
PROVIDERS: Nurse Practitioner; Admitting Provider Emergency Medicine; Emergency Provider Emergency Medicine; PCP Nurse Practitioner Family; Visit Provider Emergency Medicine
DX: I11.0 Hypertensive heart disease with heart failure (principal); I50.9 Heart failure, unspecified; N17.9 Acute kidney failure, unspecified; K27.9 Peptic ulcer, site unspecified, unspecified as acute or chronic, without hemorrhage or perforation; R74.8 Abnormal levels of other serum enzymes; F41.9 Anxiety disorder, unspecified; F19.10 Other psychoactive substance abuse, uncomplicated; Z90.710 Acquired absence of both cervix and uterus; Z87.891 Personal history of nicotine dependence; Z20.822 Contact with and (suspected) exposure to COVID-19; Z79.899 Other long term (current) drug therapy
CPT/HCPCS: 36415; 71045; 80053; 80307; 81003; 83605; 83735; 83880; 84484; 85025; 85027; 93005; 94640; 96372; 96374; 96375; 96376; 99285; A9270; C9803; G0378; G0379; J1650; J1940; J2405; J2930; U0003; U0005

== ENCOUNTER 2021-09-24 17:29 | Observation (INO) | payer BC, SELFPAY ==
--- NOTE | ~2021-09-24 | XR_ITS ---
EXAMINATION: XR chest 1V portable EXAM DATE: 09/24/2021 18:10 INDICATION: Shortness of breath w/ LT sided pain in chest on/off x 3 mo. TECHNIQUE: Portable AP frontal chest x-ray was obtained. Comparison is made to prior examination from 08/22/2021. FINDINGS: There is cardiomegaly and pulmonary vascular congestion. No confluent consolidation, pneumo thorax or pleural effusion suspected. There are mild bony degenerative changes. IMPRESSION: Cardiomegaly, pulmonary vascular congestion. Reviewed, dictated and finalized at location A. T END WEB DEVELOPER
--- NOTE | ~2021-09-24 | CT_ITS ---
EXAMINATION: CTA chest PE protocol EXAM DATE: 09/24/2021 19:36 INDICATION: Elevated D-dimer, elevated d dimer. SOB with LT chest pain CHF. TECHNIQUE: Spiral CTA of the chest (pulmonary arteries) was performed with 100 cc Omnipaque 350 intr avenous contrast injection. Images were acquired during the pulmonary arterial phase. Coronal maxi mum intensity projection 3D-reconstructions were created by the technologist on dedicated workstation . Axial, coronal and sagittal reformatted images were reviewed. The dose-length product (DLP) for t his examination was 956.78 mGy-cm. The exposure was tailored according to patient size (auto mA exp osure control), and iterative reconstruction (ASIR) was used as additional dose reduction technique. Comparison is made to prior examination from 08/11/2021. FINDINGS: There are no pulmonary arterial filling defects. Severe cardiomegaly, in particular left ve ntricle is dilated. Small right pleural effusion. There is pulmonary vascular congestion and groundgl ass airspace disease, appearance most consistent with pulmonary edema. Consider CHF exacerbation. Ezekiel earance to the gallbladder, retroperitoneum unchanged and could also be from heart failure. No conflu ent consolidation or pneumothorax. There is moderate thoracic disc disease. No mediastinal or hilar l ymphadenopathy. IMPRESSION: 1. Findings consistent with CHF exacerbation. 2. No pulmonary emboli. Reviewed, dictated and finalized at location A. TRUCTION CODE ADMINISTRATOR
--- NOTE | ~2021-09-24 | XR_ITS ---
EXAMINATION: XR chest 1V portable INDICATION: Chest pain and shortness of breath TECHNIQUE: Portable AP chest at 1117 hours COMPARISON: 09/24/2021 FINDINGS: Cardiomegaly is noted. Diffuse interstitial opacities persist with slight improvement. Ther e is no pleural effusion or pneumothorax. IMPRESSION: 1. Cardiomegaly with improving pulmonary edema. Reviewed, dictated and finalized at location B. CE SERVICE COORDINATOR
[2021-09-24 17:35] VITALS: BP 123/99; PULSE 109; RESP 24; TEMP 36.8; O2SAT 98
--- NOTE | 2021-09-24 17:45 | ECG_ITS ---
Measurements Intervals [place] Rate: 108 P: 43 IA: 152 QRS: 29 QRSD: 105 T: -79 QT: 352 QTc: 473 Interpretive Statements SINUS TACHYCARDIA VENTRICULAR PREMATURE COMPLEXES LEFT ATRIAL ENLARGEMENT DELAYED PRECORDIAL R/S TRANSITION BORDERLINE ST-T WAVE ABNORMALITY- DIFFUSE LEADS BASELINE ARTIFACT- I, II, AVR, AVL, AVF, V1 ABNORMAL ECG Electronically Signed On 09-25-2021 6:56:22 [employer] by Oh Bangura D.O.
--- NOTE | 2021-09-24 17:55 | ED.GENADULT ---
HPI - General Adult General Source: patient Mode of arrival: ambulatory Limitations: no limitations History of Present Illness HPI narrative: Christine is a 51F with a PMH of HFrEF (15-20%), COPD, anxiety, and HTN that presented to the ER with SOB. She has had SOB for a few months. However, today she woke up and it was worse. She also admits chest pressure that does not radiate. She is nauseated with a few small episodes of non-bloody vomiting and she feels lightheaded. Related Data Allergies Allergy/AdvReac Type Severity Reaction Status Date / Time codeine Allergy Hives Verified 09/24/21 18:06 Review of Systems Constitutional: Constitutional: Reports no additional constitutional complaints, Denies chills and Denies fever(s) Eyes: Eyes: Reports no additional eye complaints ENT: Reports system reviewed and no additional complaints, except as documented Cardiovascular: Cardiovascular: Reports as per HPI Respiratory: Respiratory: Reports as per HPI, Reports cough and Reports dyspnea Gastrointestinal: Gastrointestinal: Reports nausea and Reports vomiting Genitourinary: Genitourinary: Reports no additional female genitourinary complaints Musculoskeletal: Musculoskeletal: Reports no additional musculoskeletal complaints Integumentary/Breasts: Skin/Breast: Reports system reviewed and no additional complaints, except as docu Neurologic: Reports system reviewed and no additional complaints, except as documented Psychiatric: Psychiatric: Reports no additional psychiatric complaints Endocrine: Endocrine: Reports no additional endocrine complaints Hematologic/Lymphatic: Hematologic/Lymphatic: Reports no additional hematologic/lymphatic complaints Allergic/Immunologic: Allergic/Immunologic: Reports no additional allergic/immunologic complaints [facility] Past Medical History Medical History Cholecystitis Congestive heart failure HTN (hypertension) Peptic ulcer disease UTI (urinary tract infection) Surgical History Surgical History H/O tubal ligation History of hysterectomy Family History Family History Father Acute myocardial infarction Social History Social History Smoking packs per day: 0.5 Smoking cigarettes per day: 10.0 Years smoked: 41 Smoking pack-years: 20.50 Smoking status: Current every day smoker Tobacco type: cigarettes Second hand tobacco smoke exposure: No Smoking end date: 08/11/21 Alcohol intake: never Substance use: current Substance use type: marijuana Last use: 08/18/2021 Gender identity (if verbalized by the patient): Female Spiritual care concerns: No Exam Const: General: no acute distress and alert; No confusion Orientation/consciousness: patient oriented x3 Limitations: No altered mental status HENMT: Head: normal to inspection Other: normocephalic, atraumatic Eyes: Pupils: Equal, round and reactive pupils present Neck: Neck: normal visual inspection Chest: Chest palpation & inspection: normal inspection of the chest Resp: Effort & Inspection: normal respiratory effort Auscultation: clear to auscultation bilaterally Cardio: Rate: tachycardic Rhythm: regular rhythm Heart sounds: Murmur heart sound present GI: Inspection: non-distended GI Palp: Yes Soft to palpation, No Tenderness to palpation present (GI) and No Guarding due to palpation present (GI) : General: Yes no CVA tenderness Back/Spine/Pelvis: Back: no CVA tenderness Skin: General skin exam: normal color Rashes: no rashes Neuro: General: patient oriented x3 and moves all extremities Speech: normal speech Extrem: General: normal to inspection Psych: Appearance: grossly normal Mental Status: mental status grossly normal Affect: Anxious affect present Though
[2021-09-24 18:09] LABS: Basophils Absolute Auto 0.06 K/mm3 (0.00-0.10); Basophils Percent Auto 1.2 % (0.0-1.0); Eosinophils Absolute Auto 0.13 K/mm3 (0.02-0.50); Eosinophils Percent Auto 2.6 % (1.0-6.0); Hematocrit 45.6 % (35.0-49.0); Hemoglobin 14.2 g/dL (12.0-15.0); Immature Granulocyte Absolute 0.02 K/mm3 (0.00-0.00); Immature Granulocyte Percent A 0.4 % (0.0-0.0); Lymphocytes Absolute Auto 1.49 K/mm3 (1.10-4.50); Lymphocytes Percent Auto 29.9 % (18.0-42.0); Mean Corpuscular HGB Conc 31.1 g/dL (32.0-36.0); Mean Corpuscular Hemoglobin 29.3 pg (27.0-31.0); Mean Corpuscular Volume 94.2 fL (78.0-102.0); Mean Platelet Volume 12.3 fl (9.2-11.8); Monocytes Absolute Auto 0.41 K/mm3 (0.10-0.90); Monocytes Percent Auto 8.2 % (2.0-11.0); Neutrophils Absolute Auto 2.9 K/mm3 (1.7-7.2); Neutrophils Percent Auto 57.7 % (50.0-70.0); Platelet Count Result 125 K/mm3 (150-420); Red Blood Count 4.84 M/mm3 (4.20-5.40); Red Cell Distribution Width 15.1 % (11.6-14.4)
[2021-09-24] MEDS: ASPIRIN 81 MG CHEWABLE TABLET 324 MG PO (18:20)
[2021-09-24 18:25] VITALS: BP 122/96; PULSE 103; RESP 22; O2SAT 97
[2021-09-24 18:25] LABS: INR 1.1; Prothrombin Time 11.4 Seconds (9.50-12.10)
[2021-09-24 18:27] LABS: D Dimer 1.03 mg/L (0.19-0.50)
[2021-09-24 18:28] LABS: Influenza Control Valid (Valid)
[2021-09-24 18:32] LABS: SARS-CoV-2 Ag Negative (Negative)
[2021-09-24 18:34] LABS: Alanine Aminotransferase 51 U/L (14-59); Albumin Level 3.3 g/dL (3.4-5.0); Alkaline Phosphatase 70 U/L (46-116); Anion Gap 9 mmol/L (8-16); Aspartate Amino Transferase 83 U/L (15-37); Bilirubin,Total 0.9 mg/dL (0.00-1.00); Blood Urea Nitrogen 20 mg/dL (7-18); Calcium 8.9 mg/dL (8.5-10.1); Carbon Dioxide 22 mmol/L (21-32); Chloride 106 mmol/L (98-108); Estimated CRCL calculation 57 ml/min; Estimated Glomerular Filt Rate 54; Glucose 110 mg/dL (70-99); NT Pro B Type Natriuretic Pept 8869 pg/mL (0-125); Osmolality Calculated 287 mOsm/kg (285-295); Potassium 5.7 mmol/L (3.5-5.1); Sodium 137 mmol/L (136-145); Total Protein 7.9 g/dL (6.4-8.2); Troponin I 41.2 ng/L (0.00-60.4)
--- NOTE | 2021-09-24 18:35 | PC.NURSE ---
occasional runs of bigeminy. pt denies pain at this time. resp rapid. pulse ox-97 on room
[2021-09-24 18:56] VITALS: PULSE 101; RESP 26; O2SAT 96
[2021-09-24] MEDS: FUROSEMIDE INJ 40 MG/4 ML VIAL IV PUSH (19:01)
[2021-09-24 19:40] LABS: Add Urine Microscopic? YES; Appearance Urine Clear (Clear); Bilirubin Urine Negative (Negative); Blood Urine Negative (Negative); Color Urine Light Yellow (Yellow); Glucose Urine UA Negative (Negative); Ketones Urine Negative (Negative); Leukocyte Esterase Ur Negative (Negative); Nitrate Urine Negative (Negative); Protein Urine 1+ (Negative); Specific Grav Ur 1.025 (1.010-1.020)
[2021-09-24 19:45] VITALS: O2SAT 97
[2021-09-24 19:46] LABS: Amphetamine Screen Urine Positive (Negative); Barbiturate Screen Urine Negative (Negative); Benzodiazepines Screen Urine Negative (Negative); Cannabinoid Screen Urine Positive (Negative); Cocaine Screen Urine Negative (Negative); Methadone Screen Urine Negative (Negative); Opiate Screen Urine Negative (Negative); Phencyclidine Screen Urine Negative (Negative)
[2021-09-24 19:49] LABS: Bacteria Urine Trace /hpf; Mucus Urine Noted /lpf; RBC Urine 0-2 /hpf (0-2); Squamous Epithelial Cell Urine None seen /hpf (Few); WBC Urine 0-3 /hpf (0-3)
[2021-09-24 19:50] LABS: Pregnancy On Board Control Positive; Urine Pregnancy Test Negative
[2021-09-24 20:51] VITALS: BP 123/107; PULSE 51; RESP 16; O2SAT 99
[2021-09-24 21:35] VITALS: BP 127/97; PULSE 108; RESP 18; TEMP 36.1; O2SAT 97; O2SAT 98
--- NOTE | 2021-09-24 21:46 | ADMGEN ---
This patient, Christine Montes, was admitted to 2nd Floor Room 208-2. Patient/family oriented to hospital policies and general routines including ID bracelet, bed and alarms, visiting hours, pain management, procedures, bathroom and other care routines, personal items, smoking policy, room service/diet, and visiting hours. Patient on 2 liters oxygen per nasal cannula patient alert and oriented x 3, no apparent distress noted, iv intact to left hand and right forearm. edema to bilateral ankles. Information on how to activate the Rapid Response Team has been discussed. Patient/Family are encouraged to report perceived risks to care and to ask questions if they do not understand what they are told or what they should do.
[2021-09-24 21:55] VITALS: BMI 34.8
[2021-09-25] VITALS: BP 92/77; PULSE 96; TEMP 36.4; O2SAT 98
[2021-09-25 03:56] VITALS: BP 116/101; PULSE 68; TEMP 35.9; O2SAT 94
[2021-09-25 07:25] VITALS: BP 118/91; PULSE 101; RESP 20; TEMP 35.8; O2SAT 94
[2021-09-25 09:06] LABS: Basophils Absolute Auto 0.04 K/mm3 (0.00-0.10); Basophils Percent Auto 0.7 % (0.0-1.0); Eosinophils Absolute Auto 0.09 K/mm3 (0.02-0.50); Eosinophils Percent Auto 1.6 % (1.0-6.0); Hemoglobin 13.6 g/dL (12.0-15.0); Immature Granulocyte Absolute 0.02 K/mm3 (0.00-0.00); Immature Granulocyte Percent A 0.4 % (0.0-0.0); Immature Platelet Fraction Pct 4.8 % (1.0-7.0); Lymphocytes Percent Auto 14.7 % (18.0-42.0); Mean Corpuscular HGB Conc 31.6 g/dL (32.0-36.0); Mean Corpuscular Hemoglobin 28.8 pg (27.0-31.0); Mean Corpuscular Volume 90.9 fL (78.0-102.0); Mean Platelet Volume 12.1 fl (9.2-11.8); Monocytes Absolute Auto 0.28 K/mm3 (0.10-0.90); Monocytes Percent Auto 5.1 % (2.0-11.0); Neutrophils Absolute Auto 4.2 K/mm3 (1.7-7.2); Neutrophils Percent Auto 77.5 % (50.0-70.0); Platelet Count Result 106 K/mm3 (150-420); Red Blood Count 4.73 M/mm3 (4.20-5.40); Red Cell Distribution Width 14.7 % (11.6-14.4); White Blood Count 5.5 K/mm3 (4.8-10.8)
[2021-09-25 09:27] LABS: Alanine Aminotransferase 50 U/L (14-59); Albumin Level 3.3 g/dL (3.4-5.0); Alkaline Phosphatase 65 U/L (46-116); Anion Gap 11 mmol/L (8-16); Aspartate Amino Transferase 52 U/L (15-37); Bilirubin,Total 1.4 mg/dL (0.00-1.00); Blood Urea Nitrogen 20 mg/dL (7-18); Calcium 9.1 mg/dL (8.5-10.1); Carbon Dioxide 26 mmol/L (21-32); Chloride 106 mmol/L (98-108); Estimated CRCL calculation 55 ml/min; Estimated Glomerular Filt Rate 51; Glucose 125 mg/dL (70-99); NT Pro B Type Natriuretic Pept 9536 pg/mL (0-125); Osmolality Calculated 299 mOsm/kg (285-295); Potassium 3.8 mmol/L (3.5-5.1); Sodium 143 mmol/L (136-145); Total Protein 7.4 g/dL (6.4-8.2)
[2021-09-25 09:41] VITALS: PULSE 101
[2021-09-25] MEDS: ENOXAPARIN 40 MG/0.4 ML SYRINGE SUB-Q (09:41)
[2021-09-25] MEDS: SACUBITRIL/VALSARTAN 24-26 MG TABLET 1 TAB PO (09:41)
[2021-09-25] MEDS: carvediloL 3.125 MG TABLET PO (09:41)
[2021-09-25] MEDS: PANTOPRAZOLE 40 MG TABLET PO (09:42)
[2021-09-25] MEDS: ESCITALOPRAM OXALATE 10 MG TABLET PO (09:42)
[2021-09-25] MEDS: FUROSEMIDE 40 MG TABLET PO (09:42)
--- NOTE | 2021-09-25 10:57 | PC.NURSE ---
Patient reporting pain/discomfort to left arm from shoulder to elbow and some discomfort/pain to mid chest. WIRE WINDING MACHINE TENDER Mario notified. EKG ordered to be done.
--- NOTE | 2021-09-25 11:01 | ECG_ITS ---
Measurements Intervals [place] Rate: 111 P: 46 WI: 148 QRS: 42 QRSD: 102 T: 51 QT: 351 QTc: 477 Interpretive Statements SINUS TACHYCARDIA FREQUENT VENTRICULAR PREMATURE COMPLEXES LEFT ATRIAL ENLARGEMENT DELAYED PRECORDIAL R/S TRANSITION ST-T WAVE ABNORMALITY IN LATERAL LEADS- CONSIDER ISCHEMIA BASELINE ARTIFACT- II, III, AVR, AVL, AVF ABNORMAL ECG Electronically Signed On 09-25-2021 19:59:26 SEMICONDUCTOR EQUIPMENT TECHNICIAN by Oh Bangura D.O.
[2021-09-25 11:08] VITALS: BP 120/94; PULSE 110; RESP 22; TEMP 36.6; O2SAT 99
--- NOTE | 2021-09-25 11:10 | PC.NURSE ---
Cardio in room obtaining EKG
--- NOTE | 2021-09-25 11:12 | PC.NURSE ---
Lab in room to draw blood
--- NOTE | 2021-09-25 11:15 | PC.NURSE ---
Xray in room to obtain CXR.
[2021-09-25] MEDS: ASPIRIN 81 MG CHEWABLE TABLET 324 MG PO (11:16)
[2021-09-25] MEDS: NITROGLYCERIN SL 0.4 MG TABLET SUBLINGUAL (11:16)
[2021-09-25] MEDS: ONDANSETRON INJ 4 MG/2 ML VIAL IV PUSH (11:27)
[2021-09-25] MEDS: LOPERAMIDE HCL 2 MG CAPSULE 4 MG PO (11:27)
--- NOTE | 2021-09-25 11:27 | PC.NURSE ---
Patient reports continued slight nausea, given zofran per order. States pain is gone at this time. Nurse encouraged patient to notify nurse if pain comes back.
[2021-09-25 11:39] LABS: Troponin I 37.1 ng/L (0.00-60.4)
--- NOTE | 2021-09-25 12:55 | PM.SD2 ---
Same Day Admit/Disch: HPI History of Present Illness Chief complaint: CHF EXCERBATION HYPERKALEMIA Narrative: Christine Montes is a 51 year old female who was admitted under Observation for SOB. She has a significant history of COPD, Anxiety, HTN, EF of 15-20% and she states she is to have a stent placed on the of this month. She also admits to using Marijuana and Methamphetamine. She was admitted for CHF which has improved however she developed Chest Pain in the upper left chest radiating tot he left shoulder at a pain level of 8/10 which was relieved by Nitro. She stated the Chest Pain started around breakfast which was 2 hours earlier. When asked why she did not report this she stated that is slowly was getting worse. Her pain increases with deep breathing and with light palpation / pressure applied to the sternum. He pain returned again at 1300 hours. Initial report of the pain was 1105 hours this AM. She was given 1 Nitro, 4 Baby ASA, Chest imaging showing improved CHF and cardiomegaly, Troponin of 37.1, EKG which looks similar to yesterdays EKG. Pt has been accepted by Cardiology and Hospitalist under Dr. Del Castillo at [facility]. [facility] Past Medical History Medical History (Updated 09/25/21 @ 16:59 by Jeanne Jones PA-C) Anxiety Cardiomyopathy Echocardiogram on 08/14/2021 showed a severely enlarged left ventricular chamber with reduced ejection fraction of 15 to 20%. Chronic obstructive pulmonary disease Combined systolic and diastolic cardiac dysfunction Echocardiogram on 08/14/2021 showed a severely reduced ejection fraction of 15 to 20% as well as diastolic dysfunction. Gastroesophageal reflux disease Hypertension Peptic ulcer disease Polysubstance abuse Surgical History Surgical History (Updated 09/25/21 @ 16:45 by Jeanne Jones PA-C) History of colonoscopy with polypectomy History of hysterectomy History of tubal ligation Family History Family History Father Acute myocardial infarction Mother Cerebrovascular accident Other No problems noted. Sibling Cancer Social History Social History (Updated 09/25/21 @ 22:43 by Jeanne Jones PA-C) Social History: Surrogate decision maker: Code status: Full code. Smoking packs per day: 0.25 Smoking cigarettes per day: 5.0 Years smoked: 42 Smoking pack-years: 10.50 Smoking status: Current every day smoker Tobacco type: cigarettes Second hand tobacco smoke exposure: No Additional smoking assessment comments: Patient reports being down to about 2 cigarettes a day. Alcohol intake: never Substance use: current Substance use type: marijuana and methamphetamine Last use: Patient uses methamphetamines every couple of weeks. Additional living arrangements comments: The patient lives in [place]. Friend is staying with her currently. 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 Same Day Admit/Disch: Med Pre-admit Medications Home Medications Medication Instructions Recorded Confirmed Type pantoprazole [Protonix] 40 mg PO QAM 28 Days #28 tablet 08/02/21 09/25/21 Rx carvedilol [Coreg] 3.125 mg PO Q12HR #60 tablet 08/14/21 09/25/21 Rx ropinirole 0.25 mg PO HS #30 tablet 08/14/21 09/25/21 Rx spironolactone 25 mg tablet 25 mg PO DAILY #30 tablet 08/14/21 09/25/21 Rx escitalopram oxalate 10 mg tablet 10 mg PO DAILY #30 tablet 08/19/21 09/25/21 Rx Entresto 1 tablet PO BID #60 tablet 08/25/21 09/25/21 Rx furosemide [Lasix] 40 mg PO BID 60 Days #14 tablet 08/25/21 09/25/21 Rx prochlorperazine maleate 5 mg PO Q8H PRN 2 Days #30 tablet 08/25/21 09/25/21 Rx [Compazine] albuterol sulfate 90 mcg/actuation 2 puff INHALATION QID PRN #6.7 g 09/24/21 09/25/21 Rx aerosol inhaler Exam Const: General: cooperative, comfortable, well developed, alert, awake, Physically active, ill appearing and other (appears older than documented age) Nutritional
[2021-09-25] MEDS: PROCHLORPERAZINE MALEATE 5 MG TABLET PO (13:04)
--- NOTE | 2021-09-25 13:04 | PC.NURSE ---
Patient reports increased nausea after lunch, had small emesis. Patient given compazine per order. Tolerated fair.
--- NOTE | 2021-09-25 15:05 | PC.NURSE ---
Report given to Veronica Rubio
--- NOTE | 2021-09-25 15:05 | PC.NURSE ---
[facility] called and no transfer rig and [facility] called for als rig.
[2021-09-25 15:25] VITALS: O2SAT 99
--- NOTE | 2021-09-25 15:25 | PC.NURSE ---
EMS here to transport patient to [facility]. Report given to EMS, all patients belongings gathered together and sent with patient including home medication. Transfer paperwork given to EMS. IV sites left in place for transport. Patient denies any questions at time of transfer. Patient left floor via stretcher accompanied by EMS.
== END 2021-09-25 15:25 | disposition short-term general hospital (02) ==
LOC: CHSED 17:33 → CHS2ND 20:23
PROVIDERS: Nurse Practitioner Family; Admitting Provider Family Medicine; Emergency Provider Family Medicine; PCP Nurse Practitioner Family; Visit Provider Family Medicine
DX: I11.0 Hypertensive heart disease with heart failure (principal); I50.43 Acute on chronic combined systolic (congestive) and diastolic (congestive) heart failure; E87.5 Hyperkalemia; J44.9 Chronic obstructive pulmonary disease, unspecified; K21.9 Gastro-esophageal reflux disease without esophagitis; K27.9 Peptic ulcer, site unspecified, unspecified as acute or chronic, without hemorrhage or perforation; R07.9 Chest pain, unspecified; F41.9 Anxiety disorder, unspecified; F17.210 Nicotine dependence, cigarettes, uncomplicated; F15.90 Other stimulant use, unspecified, uncomplicated; F12.90 Cannabis use, unspecified, uncomplicated; Z20.822 Contact with and (suspected) exposure to COVID-19; Z90.710 Acquired absence of both cervix and uterus; Z79.899 Other long term (current) drug therapy
CPT/HCPCS: 36415; 71045; 71275; 80053; 80307; 81001; 81025; 83880; 84484; 85025; 85055; 85380; 85610; 87426; 87804; 93005; 96372; 96374; 96375; 99285; A9270; C9803; G0378; G0379; J1650; J1940; J2405; Q9967

== ENCOUNTER 2021-09-25 16:51 | Inpatient (IN) | payer BC, SELFPAY ==
[2021-09-25] VITALS (7 sets, daily range): BP systolic 113–128; BP diastolic 90–93; PULSE 102–113; RESP 24–26; TEMP 36.3–36.4; O2SAT 95–98; BMI 34.2
--- NOTE | 2021-09-25 16:22 | ADMGEN ---
This patient, Christine Montes, was admitted to IMU Room 232-01 at 1606. Patient/family oriented to hospital policies and general routines including ID bracelet, bed and alarms, visiting hours, pain management, procedures, bathroom and other care routines, personal items, smoking policy, room service/diet, and visiting hours. Information on how to activate the Rapid Response Team has been discussed. Patient/Family are encouraged to report perceived risks to care and to ask questions if they do not understand what they are told or what they should do.
--- NOTE | 2021-09-25 17:15 | PM.IMHP ---
H&P: HPI History of Present Illness Date/Time: 09/25/21 17:15 Chief Complaint: Chest pain. Narrative: This is a 51-year-old female smoker with history of polysubstance abuse, hypertension, GERD, peptic ulcer disease, COPD, chronic kidney disease, and relatively recent diagnosis of cardiomyopathy with an EF of 15 to 20% who is being directly admitted to the IMU from the medical floor at the [facility] for further evaluation of chest pain. She was admitted to their facility through the emergency department last evening after presenting with shortness of breath, found to have CHF exacerbation. She reportedly has diuresed well and repeat imaging this morning showed improvement in pulmonary edema. Sometime this morning she developed a heavy, pressure-like sensation in the left anterior chest radiating into the left arm and transfer was initiated for cardiology consultation. She has never had discomfort like this in the past and it has her quite anxious. She continues to feel a bit short of breath. She denies pleuritic pain. She denies nausea and vomiting today but she reports posttussive emesis yesterday after a coughing fit. She does not weigh herself at home but does endorse weight gain recently. She has a difficult time following a cardiac diet as she does not really understand what she is supposed to be limiting. Review of Systems Review of Systems: Twelve systems were reviewed. Reports mild sweats. No fever. No cold or flu symptoms. She has been having episodes of lightheadedness on standing and occasionally while walking and that has been since she was started on multiple medications after her cardiomyopathy diagnosis. She denies syncope and near-syncope. She has had intermittent swelling of her hands and feet although they are much less swollen today since being diuresed the past 12 hours or so. She has noticed that her hands and feet are cool in the last couple of months as well. She has no history of sleep apnea however she does admit that she will occasionally wake up gasping for air ?and I feel like I am drowning. ? Her friend has been staying with her recently and she is concerned that the patient has had episodes of apnea. No history of venous thromboembolism. Except as documented, all other systems were reviewed and are negative. [facility] Past Medical History Medical History (Updated 09/25/21 @ 16:59 by Jeanne Jones PA-C) Anxiety Cardiomyopathy Echocardiogram on 08/14/2021 showed a severely enlarged left ventricular chamber with reduced ejection fraction of 15 to 20%. Chronic obstructive pulmonary disease Combined systolic and diastolic cardiac dysfunction Echocardiogram on 08/14/2021 showed a severely reduced ejection fraction of 15 to 20% as well as diastolic dysfunction. Gastroesophageal reflux disease Hypertension Peptic ulcer disease Polysubstance abuse Surgical History Surgical History (Updated 09/25/21 @ 16:45 by Jeanne Jones PA-C) History of colonoscopy with polypectomy History of hysterectomy History of tubal ligation Family History Family History Father Acute myocardial infarction Mother Cerebrovascular accident Other No problems noted. Sibling Cancer Social History Social History (Updated 09/25/21 @ 22:43 by Jeanne Jones PA-C) Social History: Surrogate decision maker: Code status: Full code. Smoking packs per day: 0.25 Smoking cigarettes per day: 5.0 Years smoked: 42 Smoking pack-years: 10.50 Smoking status: Current every day smoker Tobacco type: cigarettes Second hand tobacco smoke exposure: No Additional smoking assessment comments: Patient reports being down to about 2 cigarettes a day. Alcohol intake: never Substance use: current Substance use type: marijuana and methamphetamine Last use: Patient uses methamphetamines every couple of weeks. Additional living arrangements comments
[2021-09-25 17:38] LABS: Hematocrit 42.1 % (37.0-47.0); Hemoglobin 13.9 g/dL (12.0-15.0); Mean Corpuscular Hemoglobin 30.1 pg (26-34); Mean Corpuscular Volume 91.1 fl (80-100); Platelet Count Result 111 k/mm3 (150-375); Red Blood Count 4.62 M/mm3 (4.2-5.4); Red Cell Distribution Width 15.2 % (11.5-14.5); White Blood Count 4.9 K/mm3 (4.5-10.0)
[2021-09-25] MEDS: FUROSEMIDE INJ 40 MG/4 ML VIAL IV PUSH (17:41)
[2021-09-25 17:49] LABS: INR 1.1; Prothrombin Time 13.8 Seconds (11.1-14.7)
[2021-09-25 17:50] LABS: Partial Thromboplastin Time 30.4 SECONDS (22.3-36.8)
[2021-09-25 17:54] LABS: Alanine Aminotransferase 36 U/L (4-35); Albumin Level 3.8 g/dL (3.5-5.1); Alkaline Phosphatase 62 U/L (38-126); Anion Gap 8 mmol/L (8-16); Aspartate Amino Transferase 54 U/L (14-36); Bilirubin,Total 1.6 mg/dL (0.2-1.3); Blood Urea Nitrogen 20 mg/dL (7-17); Calcium 8.9 mg/dL (8.4-10.2); Carbon Dioxide 23 mmol/L (22-30); Chloride 107 mmol/L (98-107); Estimated CRCL calculation 61 ml/min; Estimated Glomerular Filt Rate 58; Glucose 145 mg/dL (65-110); Potassium 4.3 mmol/L (3.4-5.0); Sodium 138 mmol/L (137-145)
[2021-09-25 18:09] LABS: Magnesium 1.8 mg/dL (1.6-2.3)
[2021-09-25 18:14] LABS: Troponin I 0.035 ng/mL (0.000-0.034)
[2021-09-25 18:58] LABS: Hemoglobin A1C 6.1 % (<5.7)
[2021-09-25 19:20] LABS: Thyroid Stimulating Hormone Reflex 0.505 uIU/mL (0.465-4.68)
[2021-09-25] MEDS: ACETAMINOPHEN 325 MG TABLET 650 MG PO (20:37)
[2021-09-25 20:38] LABS: Troponin I 0.041 ng/mL (0.000-0.034)
[2021-09-25 23:33] LABS: Troponin I 0.042 ng/mL (0.000-0.034)
[2021-09-26] VITALS (34 sets, daily range): BP systolic 85–118; BP diastolic 63–94; PULSE 75–107; RESP 14–24; TEMP 36.1–37.1; O2SAT 91–100
[2021-09-26] MEDS: rOPINIRole HCL 0.25 MG TABLET PO ×2 (00:12→21:06)
[2021-09-26] MEDS: carvediloL 3.125 MG TABLET PO ×3 (00:12→21:06)
[2021-09-26 05:48] LABS: Alanine Aminotransferase 32 U/L (4-35); Albumin Level 3.5 g/dL (3.5-5.1); Alkaline Phosphatase 59 U/L (38-126); Anion Gap 8 mmol/L (8-16); Aspartate Amino Transferase 46 U/L (14-36); Bilirubin,Total 1.8 mg/dL (0.2-1.3); Blood Urea Nitrogen 20 mg/dL (7-17); Calcium 8.5 mg/dL (8.4-10.2); Carbon Dioxide 25 mmol/L (22-30); Chloride 104 mmol/L (98-107); Estimated CRCL calculation 61 ml/min; Estimated Glomerular Filt Rate 58; Glucose 109 mg/dL (65-110); Magnesium 1.7 mg/dL (1.6-2.3); Potassium 3.5 mmol/L (3.4-5.0); Sodium 137 mmol/L (137-145)
[2021-09-26] MEDS: PANTOPRAZOLE 40 MG TABLET PO (10:17)
[2021-09-26] MEDS: FUROSEMIDE 40 MG TABLET PO ×2 (10:17→17:59)
[2021-09-26] MEDS: NICOTINE (*PBKC) 14 MG PATCH 1 PATCH TRANSDERM (10:17)
[2021-09-26] MEDS: ESCITALOPRAM OXALATE 10 MG TABLET PO (10:17)
[2021-09-26] MEDS: SACUBITRIL/VALSARTAN 24-26 MG TABLET 1 TAB PO ×2 (10:17→17:59)
[2021-09-26] MEDS: SPIRONOLACTONE 25 MG TABLET PO (10:18)
--- NOTE | 2021-09-26 11:33 | PM.CNCAR ---
Assessment and Plan Additional Plan This is a 51-year-old lady unfortunately found to have a severe cardiomyopathy within the last couple of months. She has been started on medical therapy including carvedilol Entresto and diuretics and seems to be also experiencing intermittent episodes of chest pain. Possibility of coronary disease has appropriately be considered and needs to be excluded. She appears to be stable enough today in my opinion to undergo an angiogram which I will try to get scheduled for later this afternoon. The procedure in detail as well as the risks were explained to the patient she understands this and is agreeable. Marquise Amin MD [facility] History of Present Illness History of Present Illness Consult date/time: 09/26/21 11:33 Consult reason: chest pain and congestive heart failure Reason For Visit: chest pain Narrative: This is a 51-year-old woman I am seeing at the request of the hospitalist because of chest pain and congestive heart failure. This patient is unknown to me prior to this encounter but apparently is known to Dr. Bangura with recent referral with newly diagnosed left ventricular systolic dysfunction. She states this diagnosis was made in July of this year when she was having symptoms of dyspnea and was found by echo to have a markedly reduced left ventricular ejection fraction. According to notes that are in the chart Dr. stark has been treated this medically with reasonably good success. She does have history of intermittent episodes of chest pain which seem to occur in an unpredictable random fashion. She had an episode of this yesterday that was somewhat more severe so she went to the emergency room up in [place] where she was evaluated in then transferred here to [facility] for further evaluation. Apparently her prior echocardiogram that was done in the office showed low ejection fraction of 10-15%. In this setting she had been referred as an outpatient to have a coronary angiogram done to rule out ischemic heart disease which was scheduled for later this month. I am seeing her now in consultation since at transferred [place] she has been treated with some intravenous furosemide she is feeling better still has some shortness of breath but appeared to be resting comfortably in her hospital bed when I came in to see her. He denies any previous history of hypertension or diabetes I do not really have any knowledge of her lipid status. She is a long-standing cigarette smoker. Review of Systems Constitutional: Constitutional: Reports no additional constitutional complaints Eyes: Eyes: Reports no additional eye complaints ENT: Reports system reviewed and no additional complaints, except as documented Cardiovascular: Cardiovascular: Reports as per HPI Respiratory: Respiratory: Reports dyspnea on exertion Gastrointestinal: Gastrointestinal: Reports no additional gastrointestinal complaints Musculoskeletal: Musculoskeletal: Reports no additional musculoskeletal complaints Integumentary/Breasts: Skin/Breast: Reports system reviewed and no additional complaints, except as docu Endocrine: Endocrine: Reports no additional endocrine complaints Hematologic/Lymphatic: Hematologic/Lymphatic: Reports no additional hematologic/lymphatic complaints Allergic/Immunologic: Allergic/Immunologic: Reports no additional allergic/immunologic complaints [facility] Past Medical History Medical History (Updated 09/25/21 @ 16:59 by Jeanne Jones PA-C) Anxiety Cardiomyopathy Echocardiogram on 08/14/2021 showed a severely enlarged left ventricular chamber with reduced ejection fraction of 15 to 20%. Chronic obstructive pulmonary disease Combined systolic and diastolic cardiac dysfunction Echocardiogram on 08/14/2021 showed a severely reduced ejection fraction of 15 to 20% as well as diastolic dysfunction. Gastroesophageal reflux disease Hypertension Peptic ulcer disease Polysubstance abuse Surgical Hi
[2021-09-26] MEDS: HYDROcodone/acetaminophen (*CRX) 7.5-325 MG TABLET 1 TAB PO ×2 (11:58→17:58)
[2021-09-26] MEDS: POTASSIUM CHLORIDE 20 MEQ TABLET 40 MEQ PO (11:58)
--- NOTE | 2021-09-26 12:08 | PC.NURSE ---
On 09/26/21, the student, [Deric Aldana], provided care and completed [facility] documentation on this patient. I have reviewed the student's documentation and agree with the findings.
--- NOTE | 2021-09-26 13:37 | WPDMODSED ---
Moderate Sedation Note-Pt Data Patient Data Diagnosis: dilated cardiomyopathy Present Complaint: dyspnea Procedure to be performed/Plan: left heart catheterization Allergies Allergy/AdvReac Type Severity Reaction Status Date / Time codeine Allergy Hives Verified 09/24/21 18:06 Home Medications Medication Instructions Recorded Confirmed Type pantoprazole [Protonix] 40 mg PO QAM 28 Days #28 tablet 08/02/21 09/25/21 Rx carvedilol [Coreg] 3.125 mg PO Q12HR #60 tablet 08/14/21 09/25/21 Rx ropinirole 0.25 mg PO HS #30 tablet 08/14/21 09/25/21 Rx spironolactone 25 mg tablet 25 mg PO DAILY #30 tablet 08/14/21 09/25/21 Rx escitalopram oxalate 10 mg tablet 10 mg PO DAILY #30 tablet 08/19/21 09/25/21 Rx Entresto 1 tablet PO BID #60 tablet 08/25/21 09/25/21 Rx furosemide [Lasix] 40 mg PO BID 60 Days #14 tablet 08/25/21 09/25/21 Rx prochlorperazine maleate 5 mg PO Q8H PRN 2 Days #30 tablet 08/25/21 09/25/21 Rx [Compazine] albuterol sulfate 90 mcg/actuation 2 puff INHALATION QID PRN #6.7 g 09/24/21 09/25/21 Rx aerosol inhaler Current Medications: Active Medications Acetaminophen (Acetaminophen 325 Mg Tablet) 650 mg PO Q6H PRN PRN Reason: Mild Pain (1-3) or Fever Last Admin: 09/25/21 20:37 Dose: 650 mg Documented by: Albuterol (Albuterol Sulfate (*Sp) Aerosol 1 Puff) 2 puff INHALATION QID PRN PRN Reason: shortness of breath or wheezing Carvedilol (Carvedilol 3.125 Mg Tablet) 3.125 mg PO Q12HR [facility] Last Admin: 09/26/21 10:16 Dose: 3.125 mg Documented by: Escitalopram Oxalate (Escitalopram Oxalate 10 Mg Tablet) 10 mg PO DAILY [facility] Last Admin: 09/26/21 10:17 Dose: 10 mg Documented by: Furosemide (Furosemide 40 Mg Tablet) 40 mg PO BID [facility] Last Admin: 09/26/21 10:17 Dose: 40 mg Documented by: Nicotine (Nicotine (*Pbkc) 14 Mg Patch) [facility] Last Admin: 09/26/21 10:17 Dose: 1 patch Documented by: Pantoprazole Sodium (Pantoprazole 40 Mg Tablet) 40 mg PO QAM [facility] Last Admin: 09/26/21 10:17 Dose: 40 mg Documented by: Ropinirole HCl (Ropinirole Hcl 0.25 Mg Tablet) 0.25 mg PO HS [facility] Last Admin: 09/26/21 00:12 Dose: 0.25 mg Documented by: Sacubitril/Valsartan (Sacubitril/Valsartan 24-26 Mg Tablet) 1 tab PO BID [facility] Last Admin: 09/26/21 10:17 Dose: 1 tab Documented by: Spironolactone (Spironolactone 25 Mg Tablet) 25 mg PO DAILY [facility] Last Admin: 09/26/21 10:18 Dose: 25 mg Documented by: Sedation/Anesthesia: No previous sedation/anesthesia problems (including family history). [facility] Past Medical History Medical History (Updated 09/25/21 @ 16:59 by Jeanne Jones PA-C) Anxiety Cardiomyopathy Echocardiogram on 08/14/2021 showed a severely enlarged left ventricular chamber with reduced ejection fraction of 15 to 20%. Chronic obstructive pulmonary disease Combined systolic and diastolic cardiac dysfunction Echocardiogram on 08/14/2021 showed a severely reduced ejection fraction of 15 to 20% as well as diastolic dysfunction. Gastroesophageal reflux disease Hypertension Peptic ulcer disease Polysubstance abuse Surgical History Surgical History (Updated 09/25/21 @ 16:45 by Jeanne Jones PA-C) History of colonoscopy with polypectomy History of hysterectomy History of tubal ligation Family History Family History Father Acute myocardial infarction Mother Cerebrovascular accident Other No problems noted. Sibling Cancer Social History Social History (Updated 09/25/21 @ 22:43 by Jeanne Jones PA-C) Social History: Surrogate decision maker: Code status: Full code. Smoking packs per day: 0.25 Smoking cigarettes per day: 5.0 Years smoked: 42 Smoking pack-years: 10.50 Smoking status: Current every day smoker Tobacco type: cigarettes Second hand tobacco smoke exposure: No Additional smoking assessment comments: Patient reports being down to about 2 cigarettes a day.
--- NOTE | 2021-09-26 14:41 | P.PCNCC_ITS ---
Cardiac Cath Procedure Note Date of procedure:: 09/26/21 Performing physician:: Marquise Amin MD Indication:: Dilated cardiomyopathy Brief clinical history:: this is a 51-year-old woman recently found to have a dilated cardiomyopathy and evidence of congestive heart failure. She has been started on medical therapy and by her hand ornament maker. She entered the hospital with a mild CHF exacerbation. Catheterization has been recommended to determine this is ischemically mediated or not. She does using methamphetamine Procedure Procedure performed:: left ventriculography coronary angiography Sedation/Medication given:: fentanyl 50 mg Versed 2 case start time 2:20 p.m. case end time 2:37 p.m. sedation provided by Destiney Zaidi RN, trained observer Access site:: right femoral artery Estimated blood loss:: 15 cc Procedure note:: the patient was brought to the cardiac catheterization lab in the postabsorptive state the right femoral triangle was prepared fashion anesthesia was provided with % lidocaine infiltrated locally. Seldinger technique the femoral artery was punctured a 5 British vascular sheath was placed. After this left heart catheterization was carried out I used a 5 British angled pigtail catheter measure left-sided hemodynamics and to inject LV g in the JIMENEZ projection. Following this I engaged and injected the left coronary artery using a standard 5 British FL4 catheter. The right coronary artery was engaged and injected using a standard 5 British JR4 catheter. The cineangiograms were then reviewed and the case was terminated. 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 Findings:: Hemodynamics: Central pressure is 94 over 70 left ventricle 94 10 end-diastolic 24 there is no gradient on pullback across the aortic valve. Left ventricle: The LV is profoundly dilated in profoundly hypodynamic in all segments there is very little contractility visible with a visually estimated ejection fraction of 8-10% the left main coronary artery is widely patent the left anterior descending is a large caliber vessel it is smooth nicely patent down to around the apex the circumflex is a large caliber vessel giving rise to the marginal branches. The circumflex system is smooth and angiographically normal. Right coronary artery is large in caliber and dominant to the posterior circulation it is smooth and angiographically normal Conclusion:: 1. 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 right coronary dominant circulation with no evidence of coronary disease Marquise Amin MD FACC
--- NOTE | 2021-09-26 15:29 | PM.IMPN ---
Progress Note: A&P Assessment and Plan (1) Chest pain: Qualifiers: Chest pain type: unspecified Qualified Code(s): R07.9 - Chest pain, unspecified Code(s): R07.9 - Chest pain, unspecified Status: Acute Assessment and Plan: The patient developed chest discomfort earlier today and her EKG this morning showed some ST T-wave abnormalities in the lateral leads which are concerning for ischemia. Her 1st 2 troponins were mildly elevated but not significantly so. With a fairly recent diagnosis of severe cardiomyopathy as detailed above, she was set up for cardiac catheterization the next couple of weeks however with the development of chest pain this may need to be done sooner. [facility] cardiology has been consulted and their input is appreciated. 09/26/21 15:29 patient is a 51-year-old female was initially admitted with [facility] with shortness of breath patient is found to have severe systolic dysfunction with ejection fraction of 15-20% and was transfer to the [facility] for further evaluation and management, unfortunately patient has history of illicit drug abuse patient is positive for amphetamine and cannabis, currently patient is somnolent unable to provide any review of symptoms or history, patient be seen by assembler sandal parts and plan to have a cardiac catheterization to further evaluate and further recommendation to follow. (2) Acute on chronic congestive heart failure: Code(s): I50.9 - Heart failure, unspecified Status: Acute Assessment and Plan: Continue Lasix 40 mg IV through this evening and resume p.o. Lasix in a.m. (3) Cardiomyopathy: Code(s): I42.9 - Cardiomyopathy, unspecified Status: Acute Assessment and Plan: Ejection fraction was 15 to 20% on echocardiogram taken 07/18/2021. Continue carvedilol and Entresto. (4) Chronic obstructive pulmonary disease: Code(s): J44.9 - Chronic obstructive pulmonary disease, unspecified Status: Acute Assessment and Plan: No acute issues. (5) Hypertension: Code(s): I10 - Essential (primary) hypertension Status: Acute Assessment and Plan: Blood pressures were reviewed and they are stable. Continue to monitor closely while diuresing. (6) Gastroesophageal reflux disease: Code(s): K21.9 - Gastro-esophageal reflux disease without esophagitis Status: Acute Assessment and Plan: No acute issues. Continue pantoprazole. (7) Polysubstance abuse: Code(s): F19.10 - Other psychoactive substance abuse, uncomplicated Status: Acute Assessment and Plan: Patient reports marijuana and occasional methamphetamine use. She is adamant that she is not going to use methamphetamines ever again given her recent cardiac issues. (8) Thrombocytopenia: Code(s): D69.6 - Thrombocytopenia, unspecified Status: Acute Assessment and Plan: Patient has mild, intermittent thrombocytopenia dating back to September 2019. Subjective Date/time seen: 09/26/21 15:29 patient is a 51-year-old female was initially admitted with [facility] with shortness of breath patient is found to have severe systolic dysfunction with ejection fraction of 15-20% and was transfer to the [facility] for further evaluation and management, unfortunately patient has history of illicit drug abuse patient is positive for amphetamine and cannabis, currently patient is somnolent unable to provide any review of symptoms or history, patient be seen by assembler sandal parts and plan to have a cardiac catheterization to further evaluate and further recommendation to follow. Review of Systems Review of Systems: ROS unobtainable: Yes unobtainable due to medical condition Exam Narrative: appears chronically ill older than her age Patient is comfortable, NAD HEENT: eyes are clear and none icteric LUNGS: normal respiratory effort ABD: modera
[2021-09-26] MEDS: SODIUM CHLORIDE 0.9% IV 1,000 ML 125 ML IV CONT (17:00)
--- NOTE | 2021-09-26 17:36 | PC.NURSE ---
This patient, Christine Montes, was received from Cardiac Court Attendant on 09/26/21 at 1658. Patient/family oriented to unit policies and routines
[2021-09-26] MEDS: MICONAZOLE NITRATE 2% VAGINAL CREAM 45 GM TUBE 1 APPFUL VAGINAL (21:07)
[2021-09-27] VITALS (16 sets, daily range): BP systolic 101–118; BP diastolic 68–92; PULSE 76–97; RESP 18–22; TEMP 36.3–37.2; O2SAT 96–100
[2021-09-27 05:42] LABS: Anion Gap 8 mmol/L (8-16); Blood Urea Nitrogen 17 mg/dL (7-17); Calcium 8.5 mg/dL (8.4-10.2); Carbon Dioxide 26 mmol/L (22-30); Chloride 101 mmol/L (98-107); Estimated CRCL calculation 67 ml/min; Estimated Glomerular Filt Rate > 60; Glucose 110 mg/dL (65-110); Magnesium 1.5 mg/dL (1.6-2.3); Potassium 3.6 mmol/L (3.4-5.0); Sodium 135 mmol/L (137-145)
[2021-09-27] MEDS: ESCITALOPRAM OXALATE 10 MG TABLET PO (10:02)
[2021-09-27] MEDS: carvediloL 3.125 MG TABLET PO ×2 (10:02→22:07)
[2021-09-27] MEDS: SACUBITRIL/VALSARTAN 24-26 MG TABLET 1 TAB PO ×2 (10:02→17:02)
[2021-09-27] MEDS: NICOTINE (*PBKC) 14 MG PATCH 1 PATCH TRANSDERM (10:03)
[2021-09-27] MEDS: FUROSEMIDE 40 MG TABLET PO ×2 (10:03→17:02)
[2021-09-27] MEDS: PANTOPRAZOLE 40 MG TABLET PO (10:03)
[2021-09-27] MEDS: SPIRONOLACTONE 25 MG TABLET PO (10:03)
[2021-09-27] MEDS: MAGNESIUM SULF 2 GM/WATER 50ML 2 GM/50 ML BAG IVPB (12:00)
--- NOTE | 2021-09-27 13:41 | PM.PNCARD ---
Progress Note: A&P Additional Plan 51-year-old lady with a profound nonischemic cardiomyopathy related to methamphetamine. She does not have any evidence of coronary disease. She is on appropriate medical regimen that was already instituted by her production sorter. The patient had been offered a LifeVest device which she has declined. Her coronary angiograms as mentioned above yesterday morning were unremarkable. At this point there is no other cardiac investigation to carry out and I believe she can be discharged. If she changes her mind about a LifeVest device the [facility] patient service representative can be contacted and in order can be put in. After discharge her follow-up will continue with her established production sorter. Please let me know if you have questions regarding this situation. Marquise Amin MD [facility] Subjective Date/time seen: Date of service: 09/27/21 13:41 Interval history: Follow-up visit in this 51-year-old lady with: Severe nonischemic dilated cardiomyopathy undoubtedly related to methamphetamine use. Unfortunately this continues. She was transferred here for evaluation of symptoms of chest pain and dyspnea which raised concern about the possibility of underlying coronary disease. She was on the schedule for coronary angiography in the next 1-2 weeks as an outpatient for this reason and so we performed the procedure yesterday. She has no evidence of coronary disease with right coronary dominant circulation and no evidence of ischemic heart disease. She does have profoundly depressed left ventricular systolic function. Exam Const: General: comfortable and no acute distress HENMT: Mouth: Yes moist mucous membranes Eyes: Sclera: sclerae normal Pupils: Equal, round and reactive pupils present Neck: Neck: supple and no JVD Resp: Effort & Inspection: normal respiratory effort Auscultation: clear to auscultation bilaterally Cardio: Other: PMI is enlarged and laterally displaced, no murmur summation gallop is audible GI: GI Palp: Yes Soft to palpation Auscultation: normal bowel sounds Skin: General skin exam: normal color Neuro: Cognition (Neuro): normal cognition Extrem: General: normal to inspection Other: No peripheral edema adequate distal pulses Objective Data Vital Signs Vital Signs: Vital Signs - 24 hr 09/26/21 15:00 09/26/21 15:05 09/26/21 15:15 Temperature 36.2 C L Pulse Rate 80 75 79 Respiratory Rate 16 16 18 Blood Pressure 90/67 L 85/67 L 90/75 L Pulse Oximetry 93 96 98 11/12/21 15:25 09/26/21 15:35 09/26/21 15:45 Temperature Pulse Rate 75 79 80 Respiratory Rate 16 16 16 Blood Pressure 110/80 89/75 L 92/63 L Pulse Oximetry 99 99 99 09/26/21 16:00 09/26/21 16:15 09/26/21 16:30 Temperature Pulse Rate 84 88 77 Respiratory Rate 14 14 16 Blood Pressure 101/88 104/88 105/87 Pulse Oximetry 100 93 99 09/26/21 17:00 09/26/21 17:35 09/26/21 18:00 Temperature 36.1 C L 36.2 C L Pulse Rate 107 H 94 93 Respiratory Rate 20 24 H Blood Pressure 96/65 L 111/85 Pulse Oximetry 100 100 09/26/21 18:30 09/26/21 19:00 09/26/21 19:45 Temperature 36.7 C 36.6 C 36.6 C Pulse Rate 90 97 95 Respiratory Rate 22 H 22 H 22 H Blood Pressure 118/70 104/89 116/94 H Pulse Oximetry 99 100 100 09/26/21 20:00 09/26/21 21:00 09/26/21 21:06 Temperature 36.6 C Pulse Rate 99 88 96 Respiratory Rate 19 Blood Pressure 112/68 Pulse Oximetry 91 97 09/26/21 22:00 09/26/21 23:00 09/26/21 23:14 Temperature 37.1 C 36.4 C Pulse Rate 87 82 Respiratory Rate 18 20 Blood Pressure 108/66 109/80 Pulse Oximetry 100 100 93 09/27/21 00:00 09/27/21 02:00 09/27/21 04:00 Temperature 36.5 C 37.1 C Pulse Rate 90 90 89 Respiratory Rate 20 22 H Blood Pressure 101/80 104/68 Pulse Oximetry 98 96 09/27/21 06:00 09/27/21 08:00 09/27/21 09:04 Temperature 36.6 C Pulse Rate 88 76 84 Respiratory Rate 20 Blood Pressure 110/85 Pulse Oximetry 98 09/27/21 10:02 09/27/21 12
--- NOTE | 2021-09-27 14:28 | PM.IMPN ---
Progress Note: A&P Assessment and Plan (1) Chest pain: Qualifiers: Chest pain type: unspecified Qualified Code(s): R07.9 - Chest pain, unspecified Code(s): R07.9 - Chest pain, unspecified Status: Acute Assessment and Plan: The patient developed chest discomfort earlier today and her EKG this morning showed some ST T-wave abnormalities in the lateral leads which are concerning for ischemia. Her 1st 2 troponins were mildly elevated but not significantly so. With a fairly recent diagnosis of severe cardiomyopathy as detailed above, she was set up for cardiac catheterization the next couple of weeks however with the development of chest pain this may need to be done sooner. [facility] cardiology has been consulted and their input is appreciated. 09/26/21 15:29 patient is a 51-year-old female was initially admitted with [facility] with shortness of breath patient is found to have severe systolic dysfunction with ejection fraction of 15-20% and was transfer to the [facility] for further evaluation and management, unfortunately patient has history of illicit drug abuse patient is positive for amphetamine and cannabis, currently patient is somnolent unable to provide any review of symptoms or history, patient be seen by blog writer and plan to have a cardiac catheterization to further evaluate and further recommendation to follow. 09/27/2021 Interval history: patient remain more awake today denies any complaint of chest pain shortness of breath, seen by blog writer patient has refused LifeVest, cardiology there is no further workup is recommended, will continue to monitor will have a PT OT evaluate the patient patient will benefit going into acute rehab. (2) Acute on chronic congestive heart failure: Code(s): I50.9 - Heart failure, unspecified Status: Acute Assessment and Plan: Continue Lasix 40 mg IV through this evening and resume p.o. Lasix in a.m. (3) Cardiomyopathy: Code(s): I42.9 - Cardiomyopathy, unspecified Status: Acute Assessment and Plan: Ejection fraction was 15 to 20% on echocardiogram taken 07/18/2021. Continue carvedilol and Entresto. (4) Chronic obstructive pulmonary disease: Code(s): J44.9 - Chronic obstructive pulmonary disease, unspecified Status: Acute Assessment and Plan: No acute issues. (5) Hypertension: Code(s): I10 - Essential (primary) hypertension Status: Acute Assessment and Plan: Blood pressures were reviewed and they are stable. Continue to monitor closely while diuresing. (6) Gastroesophageal reflux disease: Code(s): K21.9 - Gastro-esophageal reflux disease without esophagitis Status: Acute Assessment and Plan: No acute issues. Continue pantoprazole. (7) Polysubstance abuse: Code(s): F19.10 - Other psychoactive substance abuse, uncomplicated Status: Acute Assessment and Plan: Patient reports marijuana and occasional methamphetamine use. She is adamant that she is not going to use methamphetamines ever again given her recent cardiac issues. (8) Thrombocytopenia: Code(s): D69.6 - Thrombocytopenia, unspecified Status: Acute Assessment and Plan: Patient has mild, intermittent thrombocytopenia dating back to September 2019. Subjective Date/time seen: 09/27/21 14:28 The patient developed chest discomfort earlier today and her EKG this morning showed some ST T-wave abnormalities in the lateral leads which are concerning for ischemia. Her 1st 2 troponins were mildly elevated but not significantly so. With a fairly recent diagnosis of severe cardiomyopathy as detailed above, she was set up for cardiac catheterization the next couple of weeks however with the development of chest pain this may need to be done sooner. [facility] cardiology has been consulted and their input is appreciated. 09/26/21 15:29 patient is a
[2021-09-27] MEDS: TOLNAFTATE 1% POWDER 45 GM BTL 1 APPLIC TOPICAL (22:07)
[2021-09-27] MEDS: rOPINIRole HCL 0.25 MG TABLET PO (22:07)
[2021-09-28] VITALS (13 sets, daily range): BP systolic 100–124; BP diastolic 68–81; PULSE 66–86; RESP 20–22; TEMP 35.9–36.6; O2SAT 94–99
[2021-09-28 05:03] LABS: Anion Gap 8 mmol/L (8-16); Blood Urea Nitrogen 18 mg/dL (7-17); Carbon Dioxide 27 mmol/L (22-30); Chloride 101 mmol/L (98-107); Estimated CRCL calculation 67 ml/min; Estimated Glomerular Filt Rate > 60; Glucose 118 mg/dL (65-110); Magnesium 1.9 mg/dL (1.6-2.3); Potassium 3.7 mmol/L (3.4-5.0); Sodium 136 mmol/L (137-145)
[2021-09-28] MEDS: SPIRONOLACTONE 25 MG TABLET PO (08:03)
[2021-09-28] MEDS: PANTOPRAZOLE 40 MG TABLET PO (08:03)
[2021-09-28] MEDS: ESCITALOPRAM OXALATE 10 MG TABLET PO (08:03)
[2021-09-28] MEDS: FUROSEMIDE 40 MG TABLET PO (08:03)
[2021-09-28] MEDS: carvediloL 3.125 MG TABLET PO (08:04)
[2021-09-28] MEDS: NICOTINE (*PBKC) 14 MG PATCH 1 PATCH TRANSDERM (08:04)
[2021-09-28] MEDS: SACUBITRIL/VALSARTAN 24-26 MG TABLET 1 TAB PO (08:04)
[2021-09-28] MEDS: TOLNAFTATE 1% POWDER 45 GM BTL 1 APPLIC TOPICAL (08:05)
--- NOTE | 2021-09-28 14:07 | PM.IMPN ---
Progress Note: A&P Assessment and Plan (1) Chest pain: Qualifiers: Chest pain type: unspecified Qualified Code(s): R07.9 - Chest pain, unspecified Code(s): R07.9 - Chest pain, unspecified Status: Acute Assessment and Plan: The patient developed chest discomfort earlier today and her EKG this morning showed some ST T-wave abnormalities in the lateral leads which are concerning for ischemia. Her 1st 2 troponins were mildly elevated but not significantly so. With a fairly recent diagnosis of severe cardiomyopathy as detailed above, she was set up for cardiac catheterization the next couple of weeks however with the development of chest pain this may need to be done sooner. [facility] cardiology has been consulted and their input is appreciated. 09/26/21 15:29 patient is a 51-year-old female was initially admitted with [facility] with shortness of breath patient is found to have severe systolic dysfunction with ejection fraction of 15-20% and was transfer to the [facility] for further evaluation and management, unfortunately patient has history of illicit drug abuse patient is positive for amphetamine and cannabis, currently patient is somnolent unable to provide any review of symptoms or history, patient be seen by warp starter and plan to have a cardiac catheterization to further evaluate and further recommendation to follow. 09/27/2021 Interval history: patient remain more awake today denies any complaint of chest pain shortness of breath, seen by warp starter patient has refused LifeVest, cardiology there is no further workup is recommended, will continue to monitor will have a PT OT evaluate the patient patient will benefit going into acute rehab. 09/28/2021 Interval history: patient remain more awake today denies any complaint of chest pain shortness of breath, seen by warp starter patient has refused LifeVest, cardiology there is no further workup is recommended, will continue to monitor will have a PT OT evaluate the patient patient will benefit going into acute rehab. will discuss with social Service tomorrow for discharge planning (2) Acute on chronic congestive heart failure: Code(s): I50.9 - Heart failure, unspecified Status: Acute Assessment and Plan: Continue Lasix 40 mg IV through this evening and resume p.o. Lasix in a.m. (3) Cardiomyopathy: Code(s): I42.9 - Cardiomyopathy, unspecified Status: Acute Assessment and Plan: Ejection fraction was 15 to 20% on echocardiogram taken 07/18/2021. Continue carvedilol and Entresto. (4) Chronic obstructive pulmonary disease: Code(s): J44.9 - Chronic obstructive pulmonary disease, unspecified Status: Acute Assessment and Plan: No acute issues. (5) Hypertension: Code(s): I10 - Essential (primary) hypertension Status: Acute Assessment and Plan: Blood pressures were reviewed and they are stable. Continue to monitor closely while diuresing. (6) Gastroesophageal reflux disease: Code(s): K21.9 - Gastro-esophageal reflux disease without esophagitis Status: Acute Assessment and Plan: No acute issues. Continue pantoprazole. (7) Polysubstance abuse: Code(s): F19.10 - Other psychoactive substance abuse, uncomplicated Status: Acute Assessment and Plan: Patient reports marijuana and occasional methamphetamine use. She is adamant that she is not going to use methamphetamines ever again given her recent cardiac issues. (8) Thrombocytopenia: Code(s): D69.6 - Thrombocytopenia, unspecified Status: Acute Assessment and Plan: Patient has mild, intermittent thrombocytopenia dating back to September 2019. Subjective Date/time seen: 09/28/21 14:07 09/26/21 15:29 patient is a 51-year-old female was initially admitted with [facility] with shortness of breath patient is found to hav
--- NOTE | 2021-09-28 16:06 | PM.DS ---
DS: Admitting Diagnosis Discharge Date 09/28/2021 Admitting Diagnosis chest pain DS: Discharge Diagnosis Discharge Diagnosis (1) Chest pain: Qualifiers: Chest pain type: unspecified Qualified Code(s): R07.9 - Chest pain, unspecified Code(s): R07.9 - Chest pain, unspecified Status: Acute Assessment and Plan: The patient developed chest discomfort earlier today and her EKG this morning showed some ST T-wave abnormalities in the lateral leads which are concerning for ischemia. Her 1st 2 troponins were mildly elevated but not significantly so. With a fairly recent diagnosis of severe cardiomyopathy as detailed above, she was set up for cardiac catheterization the next couple of weeks however with the development of chest pain this may need to be done sooner. [facility] cardiology has been consulted and their input is appreciated. 09/26/21 15:29 patient is a 51-year-old female was initially admitted with [facility] with shortness of breath patient is found to have severe systolic dysfunction with ejection fraction of 15-20% and was transfer to the [facility] for further evaluation and management, unfortunately patient has history of illicit drug abuse patient is positive for amphetamine and cannabis, currently patient is somnolent unable to provide any review of symptoms or history, patient be seen by volcanology teacher and plan to have a cardiac catheterization to further evaluate and further recommendation to follow. 09/27/2021 Interval history: patient remain more awake today denies any complaint of chest pain shortness of breath, seen by volcanology teacher patient has refused LifeVest, cardiology there is no further workup is recommended, will continue to monitor will have a PT OT evaluate the patient patient will benefit going into acute rehab. 09/28/2021 Interval history: patient remain more awake today denies any complaint of chest pain shortness of breath, seen by volcanology teacher patient has refused LifeVest, cardiology there is no further workup is recommended, will continue to monitor will have a PT OT evaluate the patient patient will benefit going into acute rehab. will discuss with social Service tomorrow for discharge planning (2) Acute on chronic congestive heart failure: Code(s): I50.9 - Heart failure, unspecified Status: Acute Assessment and Plan: Continue Lasix 40 mg IV through this evening and resume p.o. Lasix in a.m. (3) Cardiomyopathy: Code(s): I42.9 - Cardiomyopathy, unspecified Status: Acute Assessment and Plan: Ejection fraction was 15 to 20% on echocardiogram taken 07/18/2021. Continue carvedilol and Entresto. (4) Chronic obstructive pulmonary disease: Code(s): J44.9 - Chronic obstructive pulmonary disease, unspecified Status: Acute Assessment and Plan: No acute issues. (5) Hypertension: Code(s): I10 - Essential (primary) hypertension Status: Acute Assessment and Plan: Blood pressures were reviewed and they are stable. Continue to monitor closely while diuresing. (6) Gastroesophageal reflux disease: Code(s): K21.9 - Gastro-esophageal reflux disease without esophagitis Status: Acute Assessment and Plan: No acute issues. Continue pantoprazole. (7) Polysubstance abuse: Code(s): F19.10 - Other psychoactive substance abuse, uncomplicated Status: Acute Assessment and Plan: Patient reports marijuana and occasional methamphetamine use. She is adamant that she is not going to use methamphetamines ever again given her recent cardiac issues. (8) Thrombocytopenia: Code(s): D69.6 - Thrombocytopenia, unspecified Status: Acute Assessment and Plan: Patient has mild, intermittent thrombocytopenia dating back to September 2019. DS: Summary Hospital Course Reason for hospitalization: Chief Complaint: Chest pain. Narrative: This is
--- NOTE | 2021-09-29 07:38 | PCNSR ---
On 09/29/21, the student, Nkechi Lara, provided care and completed [facility] documentation on this patient. I have reviewed the student's documentation and agree with the findings.
== END 2021-09-28 17:11 | disposition home or self-care (01) | DRG 192 ==
PROVIDERS: Physician Assistant; Specialist; Admitting Provider Internal Medicine; Visit Provider Family Medicine
PROC: 4A023N7 Measurement of Cardiac Sampling and Pressure, Left Heart, Percutaneous Approach (ICD-10-PCS; CPT 93452; principal; 2021-09-26 14:00)
DX: I13.0 Hypertensive heart and chronic kidney disease with heart failure and stage 1 through stage 4 chronic kidney disease, or unspecified chronic kidney disease (principal); I50.43 Acute on chronic combined systolic (congestive) and diastolic (congestive) heart failure; I42.8 Other cardiomyopathies; J44.9 Chronic obstructive pulmonary disease, unspecified; K21.9 Gastro-esophageal reflux disease without esophagitis; N18.9 Chronic kidney disease, unspecified; D69.6 Thrombocytopenia, unspecified; F15.10 Other stimulant abuse, uncomplicated; F12.10 Cannabis abuse, uncomplicated; F17.210 Nicotine dependence, cigarettes, uncomplicated; Z87.11 Personal history of peptic ulcer disease; Z90.710 Acquired absence of both cervix and uterus
CPT/HCPCS: 36415; 80048; 80053; 83036; 83735; 84443; 84484; 85027; 85610; 85730; 93458; 94762; 97161; 97165; A9270; C1887; C1894; J1644; J1940; J2250; J3010; J3475; J7030; J7040

== ENCOUNTER 2021-10-08 15:01 | Inpatient (IN) | payer BC, SELFPAY ==
[2021-10-08] VITALS (10 sets, daily range): BP systolic 96–141; BP diastolic 60–106; PULSE 90–132; RESP 18–24; TEMP 36.3–37.7; O2SAT 93–98; BMI 33.3
--- NOTE | ~2021-10-08 | XR_ITS ---
XR chest 1V portable 10/08/2021 19:26 Indication: Dyspnea. Covid infection. Procedure: AP portable chest Comparison: Comparison to multiple prior studies sequentially, with oldest reviewed study dated 08/11. Findings: Cardiomegaly. Mild interstitial edema. No pleural effusion or pneumothorax. No acute osseou s abnormality. Impression: 1: Cardiomegaly with mild interstitial edema. Reviewed, dictated and finalized at location A. PAN OPERATOR Impression: 1: Cardiomegaly with mild interstitial edema.
--- NOTE | 2021-10-08 16:09 | ECG_ITS ---
Measurements Intervals Philip Rate: 128 P: 60 SD: 158 QRS: 40 QRSD: 98 T: 56 QT: 394 QTc: 575 Interpretive Statements SINUS TACHYCARDIA DELAYED PRECORDIAL R/S TRANSITION NONSPECIFIC ST & T-WAVE ABNORMALITY- INF/LAT LEADS BASELINE ARTIFACT- I, II, III, AVL, AVF ABNORMAL ECG Electronically Signed On 10-08-2021 19:57:56 SALES ADMINISTRATION SPECIALIST by Oh Bangura D.O.
[2021-10-08 17:02] LABS: Influenza A QL RT-PCR Negative (Negative); Influenza B QL RT-PCR Negative (Negative); SARS-CoV-2 RNA PCR Positive (Negative)
[2021-10-08] MEDS: ALBUTEROL SULFATE (*SP) INHALER 4 PUFF INHALATION (17:24)
[2021-10-08 17:25] LABS: Base Excess ABG -0.9 mmol/L (0-2); Oxygen Content ABG 18.9 %vol (16.0-22.0); Oxygen Saturation ABG 95.3 % (95-97); Oxyhemoglobin 94.5 % (94-100); PCO2 ABG 27.9 mmHg (35-45); PO2 ABG 73.3 mmHg (80-90); Total Hemoglobin 14.2 g/dL (12.0-18.0)
[2021-10-08 17:26] LABS: Device ROOM AIR; Modified Allen's Test Pass; Site Drawn LEFT RADIAL
[2021-10-08 17:31] LABS: Basophils Absolute Auto 0.07 K/mm3 (0.00-0.10); Basophils Percent Auto 1.1 % (0.0-1.0); Eosinophils Absolute Auto 0.02 K/mm3 (0.02-0.50); Eosinophils Percent Auto 0.3 % (1.0-6.0); Hematocrit 44.3 % (35.0-49.0); Immature Granulocyte Absolute 0.03 K/mm3 (0.00-0.00); Immature Granulocyte Percent A 0.5 % (0.0-0.0); Lymphocytes Absolute Auto 1.55 K/mm3 (1.10-4.50); Lymphocytes Percent Auto 24.4 % (18.0-42.0); Mean Corpuscular HGB Conc 31.6 g/dL (32.0-36.0); Mean Corpuscular Hemoglobin 29.1 pg (27.0-31.0); Mean Corpuscular Volume 92.1 fL (78.0-102.0); Mean Platelet Volume 12.7 fl (9.2-11.8); Monocytes Absolute Auto 0.78 K/mm3 (0.10-0.90); Monocytes Percent Auto 12.3 % (2.0-11.0); Neutrophils Absolute Auto 3.9 K/mm3 (1.7-7.2); Neutrophils Percent Auto 61.4 % (50.0-70.0); Platelet Count Result 134 K/mm3 (150-420); Red Blood Count 4.81 M/mm3 (4.20-5.40); Red Cell Distribution Width 15.4 % (11.6-14.4); White Blood Count 6.3 K/mm3 (4.8-10.8)
[2021-10-08 17:44] LABS: Add Urine Microscopic? YES; Bilirubin Urine 2+ (Negative); Blood Urine Negative (Negative); Color Urine Dark Yellow (Yellow); Glucose Urine UA Negative (Negative); Ketones Urine Negative (Negative); Leukocyte Esterase Ur Negative LEU/UL (Negative); Nitrate Urine Negative (Negative); Protein Urine 3+ (Negative); Specific Grav Ur >= 1.030 (1.010-1.020)
[2021-10-08 17:48] LABS: Alanine Aminotransferase 34 U/L (14-59); Albumin Level 3.5 g/dL (3.4-5.0); Alkaline Phosphatase 74 U/L (46-116); Anion Gap 12 mmol/L (8-16); Aspartate Amino Transferase 39 U/L (15-37); Bilirubin,Total 1.7 mg/dL (0.00-1.00); Blood Urea Nitrogen 16 mg/dL (7-18); Carbon Dioxide 23 mmol/L (21-32); Chloride 104 mmol/L (98-108); Estimated CRCL calculation 49 ml/min; Estimated Glomerular Filt Rate 45; Glucose 113 mg/dL (70-99); Magnesium 1.8 mg/dL (1.8-2.4); NT Pro B Type Natriuretic Pept 28168 pg/mL (0-125); Osmolality Calculated 290 mOsm/kg (285-295); Potassium 4.4 mmol/L (3.5-5.1); Sodium 139 mmol/L (136-145); Total Protein 8.2 g/dL (6.4-8.2); Troponin I 54.4 ng/L (0.00-60.4)
[2021-10-08 17:50] LABS: Appearance Urine Sl Cloudy (Clear); Bacteria Urine 1+ /hpf; Mucus Urine Heavy /lpf; RBC Urine None seen /hpf (0-2); Squamous Epithelial Cell Urine Moderate /hpf (Few); WBC Urine None seen /hpf (0-3)
[2021-10-08 17:51] LABS: Amphetamine Screen Urine Positive (Negative); Barbiturate Screen Urine Negative (Negative); Benzodiazepines Screen Urine Negative (Negative); Cannabinoid Screen Urine Positive (Negative); Cocaine Screen Urine Negative (Negative); Methadone Screen Urine Negative (Negative); Opiate Screen Urine Negative (Negative); Phencyclidine Screen Urine Negative (Negative)
--- NOTE | 2021-10-08 17:58 | ED.SOB ---
HPI - SOB/Dyspnea General Chief Complaint: Upper Respiratory Infection Stated Complaint: congestion nausea vomiting diarrhea Time Seen by Provider: 10/08/21 16:15 Source: patient Mode of arrival: wheelchair Limitations: no limitations History of Present Illness HPI Narrative: 51-year-old woman with a history of cardiomyopathy, COPD, polysubstance abuse and smoking comes in today complaining of cough with chest pain, fever, vomiting and fatigue that started yesterday. Patient states that she is also out of her medications. She last took them yesterday. She has no known sick contacts and has not had the COVID vaccine. Patient was discharged from [facility] 09/28/2021 after workup for acute on chronic congestive heart failure. Patient at that time was refusing a LifeVest. Cardiac catheterization on 09/26 showed profoundly dilated, hypodynamic left ventricle but no significant coronary vessel disease. MD elicited complaint: shortness of breath, cough and chest pain Pertinent past history: COPD and congestive heart failure Onset (ago): day(s) (1) Context: recent illness Timing: constant and progressively worsening Severity: moderate Exacerbating factors: lying flat, exertion and coughing Relieving factors: nothing Known history of: COPD and congestive heart failure Associated symptoms: chest pain, fever, cough, wheezing and nausea/vomiting Related Data Home oxygen amount: none Allergies Allergy/AdvReac Type Severity Reaction Status Date / Time codeine Allergy Hives Verified 09/24/21 18:06 Review of Systems Review of Systems: All systems reviewed & are unremarkable except as noted in HPI and below Constitutional: Constitutional: Reports fever(s) and Reports weakness Eyes: Eyes: Reports change in vision and Reports photophobia ENT: Reports nasal congestion and Reports sore throat Cardiovascular: Cardiovascular: Reports chest pain and Reports radiating jaw, neck or arm pain Respiratory: Respiratory: Reports chest congestion, Reports cough, Reports dyspnea and Reports wheezing Gastrointestinal: Gastrointestinal: Denies abdominal pain, Reports diarrhea, Reports nausea and Reports vomiting Genitourinary: Genitourinary: Denies nocturia and Denies dysuria Integumentary/Breasts: Skin/Breast: Denies pruritus, Denies erythema and Denies rash Neurologic: Denies vertigo, Denies dizziness and Denies syncope Hematologic/Lymphatic: Hematologic/Lymphatic: Denies easy bleeding and Denies easy bruising Allergic/Immunologic: Allergic/Immunologic: Denies lip swelling and Denies throat swelling PMFSH Past Medical History Medical History Anxiety Cardiomyopathy Echocardiogram on 08/14/2021 showed a severely enlarged left ventricular chamber with reduced ejection fraction of 15 to 20%. Chronic obstructive pulmonary disease Combined systolic and diastolic cardiac dysfunction Echocardiogram on 08/14/2021 showed a severely reduced ejection fraction of 15 to 20% as well as diastolic dysfunction. Gastroesophageal reflux disease Hypertension Peptic ulcer disease Polysubstance abuse Surgical History Surgical History History of colonoscopy with polypectomy History of hysterectomy History of tubal ligation Family History Family History Father Acute myocardial infarction Mother Cerebrovascular accident Other No problems noted. Sibling Cancer Social History Social History Social History: Surrogate decision maker: Code status: Full code. Smoking packs per day: 0.25 Smoking cigarettes per day: 5.0 Years smoked: 42 Smoking pack-years: 10.50 Smoking status: Current every day smoker Tobacco type: cigarettes Second hand tobacco smoke exposure: No Additional smoking assessment comments:
--- NOTE | 2021-10-08 19:11 | PC.NURSE ---
Report given to DAR Rodriguez
--- NOTE | 2021-10-08 19:21 | PC.NURSE ---
Received report at shift changed from DAR Coppola. Assisted with insertion of IV placement. Patient educated on process and verbalized understanding at this time. patient tolerated procedure well. Alert and oriented x4, updated patient on plan of care.
[2021-10-08] MEDS: DEXAMETHASONE 2 MG TABLET 6 MG PO (19:50)
[2021-10-08] MEDS: FUROSEMIDE INJ 40 MG/4 ML VIAL IV PUSH (19:56)
[2021-10-08 20:35] LABS: Appearance Urine Clear (Clear); Bilirubin Urine 2+ (Negative); Color Urine Dark Yellow (Yellow); Glucose Urine UA Negative (Negative); Ketones Urine Trace (Negative); Leukocyte Esterase Ur Negative (Negative); Nitrate Urine Negative (Negative); Protein Urine 2+ (Negative); Specific Grav Ur >= 1.030 (1.010-1.020)
[2021-10-08 20:40] LABS: Add Urine Microscopic? YES; Blood Urine Trace-Intact (Negative)
[2021-10-08 20:41] LABS: Bacteria Urine 1+ /hpf; Mucus Urine Heavy /lpf; RBC Urine 0-2 /hpf (0-2); Squamous Epithelial Cell Urine Many /hpf (Few); WBC Urine None seen /hpf (0-3)
[2021-10-08] MEDS: REMDESIVIR 200 MG/NS 250 ML 200 MG/250 ML BAG 250 MG IVPB (20:58)
[2021-10-08 21:10] LABS: INR 1.2; Prothrombin Time 12.6 Seconds (9.50-12.10)
--- NOTE | 2021-10-08 21:40 | ADMGEN ---
This patient, Christine Montes, was admitted to 2nd Floor Room 210-2. Patient/family oriented to hospital policies and general routines including ID bracelet, bed and alarms, visiting hours, pain management, procedures, bathroom and other care routines, personal items, smoking policy, room service/diet, and visiting hours. Information on how to activate the Rapid Response Team has been discussed. Patient/Family are encouraged to report perceived risks to care and to ask questions if they do not understand what they are told or what they should do.
[2021-10-08] MEDS: carvediloL 3.125 MG TABLET PO (22:19)
[2021-10-08] MEDS: ACETAMINOPHEN 500 MG TABLET 1000 MG PO (22:20)
[2021-10-08] MEDS: rOPINIRole HCL 0.25 MG TABLET PO (22:20)
[2021-10-08] MEDS: SACUBITRIL/VALSARTAN 24-26 MG TABLET 1 TAB PO (22:22)
[2021-10-08 23:12] LABS: Glucose Point of Care 120 mg/dl (65-105)
--- NOTE | 2021-10-08 23:46 | PC.NURSE ---
Upon assessment of room, pt is sleeping but awakens easily and answers questions appropriately. Pt assisted c repositioning in bed, noted hair matted and diaphoretic around her Rt EJ site. Pt denies any c/o at this time. New IV site started c 20g in Rt wrist. Call zepeda in reach and pt encouraged to call for help before trying to get out of bed. Pt verbalized understanding.
[2021-10-09] VITALS (9 sets, daily range): BP systolic 97–128; BP diastolic 61–83; PULSE 70–95; RESP 17–18; TEMP 36–36.6; O2SAT 93–97
--- NOTE | 2021-10-09 02:11 | PC.NURSE ---
Pt sleeping, no distress noted, RR even and nonlabored, O2 in place, monitor showing SR at this time, call zepeda within pt reach.
--- NOTE | 2021-10-09 04:00 | PC.NURSE ---
Pt sleeping, no distress noted. Call zepeda in reach of pt.
[2021-10-09 05:31] LABS: Basophils Absolute Auto 0.01 K/mm3 (0.00-0.10); Basophils Percent Auto 0.3 % (0.0-1.0); Hematocrit 39.7 % (35.0-49.0); Hemoglobin 12.8 g/dL (12.0-15.0); Immature Granulocyte Absolute 0.03 K/mm3 (0.00-0.00); Immature Granulocyte Percent A 0.8 % (0.0-0.0); Lymphocytes Absolute Auto 0.56 K/mm3 (1.10-4.50); Lymphocytes Percent Auto 14.5 % (18.0-42.0); Mean Corpuscular HGB Conc 32.2 g/dL (32.0-36.0); Mean Corpuscular Hemoglobin 29.2 pg (27.0-31.0); Mean Corpuscular Volume 90.4 fL (78.0-102.0); Mean Platelet Volume 12.2 fl (9.2-11.8); Monocytes Percent Auto 5.2 % (2.0-11.0); Neutrophils Absolute Auto 3.1 K/mm3 (1.7-7.2); Neutrophils Percent Auto 79.2 % (50.0-70.0); Platelet Count Result 118 K/mm3 (150-420); Red Blood Count 4.39 M/mm3 (4.20-5.40); Red Cell Distribution Width 15.3 % (11.6-14.4); White Blood Count 3.9 K/mm3 (4.8-10.8)
[2021-10-09 05:43] LABS: INR 1.3; Prothrombin Time 13.2 Seconds (9.50-12.10)
[2021-10-09 05:54] LABS: Alanine Aminotransferase 59 U/L (14-59); Albumin Level 2.9 g/dL (3.4-5.0); Alkaline Phosphatase 59 U/L (46-116); Anion Gap 11 mmol/L (8-16); Aspartate Amino Transferase 85 U/L (15-37); Bilirubin,Total 1.1 mg/dL (0.00-1.00); Blood Urea Nitrogen 20 mg/dL (7-18); Calcium 8.5 mg/dL (8.5-10.1); Carbon Dioxide 24 mmol/L (21-32); Chloride 107 mmol/L (98-108); Estimated CRCL calculation 48 ml/min; Estimated Glomerular Filt Rate 45; Glucose 151 mg/dL (70-99); Osmolality Calculated 299 mOsm/kg (285-295); Potassium 3.8 mmol/L (3.5-5.1); Sodium 142 mmol/L (136-145)
--- NOTE | 2021-10-09 06:00 | PC.NURSE ---
Pt sleeping, awakens easily, voices no c/o, call zepeda in pt reach.
[2021-10-09] MEDS: ENOXAPARIN 40 MG/0.4 ML SYRINGE SUB-Q (09:30)
[2021-10-09] MEDS: SACUBITRIL/VALSARTAN 24-26 MG TABLET 1 TAB PO ×2 (09:30→16:08)
[2021-10-09] MEDS: NICOTINE (*PBKC) 14 MG PATCH 1 PATCH TRANSDERM (09:30)
[2021-10-09] MEDS: ESCITALOPRAM OXALATE 10 MG TABLET PO (09:31)
[2021-10-09] MEDS: PANTOPRAZOLE 40 MG TABLET PO (09:31)
[2021-10-09] MEDS: carvediloL 3.125 MG TABLET PO ×2 (09:31→20:24)
[2021-10-09] MEDS: SPIRONOLACTONE 25 MG TABLET PO (09:31)
[2021-10-09] MEDS: guaiFENesin/DEXTROMETHORPHAN 5 ML UDC 10 ML PO ×3 (09:55→21:58)
--- NOTE | 2021-10-09 14:50 | PM.IMHP ---
H&P: HPI History of Present Illness Date/Time: 10/09/21 14:50 Christine Montes is a 51 year old female who is admitted under Observation for COVID, CHF Exacerbation, and positive toxicology for Amphetamine with a known history of Methamphetamine abuse and positive for THC. Pt was recently admitted for CHF with Chest Pain and transferred to [facility] for further workup and a cardiac cath without stent placement. Pt has a significant history of COPD, CHF, Anxiety, HTN, EF of 15-20%, She was to have a Life Vest but refused this at that time, she was discharged from [place] on 09/28/2021. Pt does not know where she may have contracted COVID. She complains of coughing a lot without production of sputum. She denies any chest pain, no fevers or chills. She states that she did stop smoking d/t all the coughing and shortness of breath. <ROBINSON Quiroga - Last Filed: 10/09/21 15:45> Chief Complaint: Shortness of Breath <ROBINSON Quiroga - Last Filed: 10/09/21 15:45> Review of Systems Constitutional: Constitutional: Denies body ache(s), Denies chills, Denies fever(s) and Denies headache(s) <ROBINSON Quiroga - Last Filed: 10/09/21 15:45> Cardiovascular: Cardiovascular: Reports no additional cardiovascular complaints, Denies chest pain, Denies chest pain at rest, Denies chest pain with activity and Denies lightheadedness <ROBINSON Quiroga - Last Filed: 10/09/21 15:45> Respiratory: Respiratory: Reports no additional respiratory complaints, Reports cough (a lot), Reports dyspnea and Reports dyspnea on exertion <ROBINSON Quiroga - Last Filed: 10/09/21 15:45> Gastrointestinal: Gastrointestinal: Reports no additional gastrointestinal complaints, Denies abdominal pain, Denies nausea and Denies vomiting <ROBINSON Quiroga - Last Filed: 10/09/21 15:45> Genitourinary: Genitourinary: Reports no additional female genitourinary complaints <ROBINSON Quiroga - Last Filed: 10/09/21 15:45> Musculoskeletal: Musculoskeletal: Reports no additional musculoskeletal complaints <ROBINSON Quiroga - Last Filed: 10/09/21 15:45> Neurologic: Reports system reviewed and no additional complaints, except as documented, Denies vertigo, Denies dizziness, Denies syncope, Denies headache(s) and Denies numbness <ROBINSON Quiroga - Last Filed: 10/09/21 15:45> Psychiatric: Psychiatric: Reports no additional psychiatric complaints <ROBINSON Quiroga - Last Filed: 10/09/21 15:45> [facility] Past Medical History Medical History: Medical History Anxiety Cardiomyopathy Echocardiogram on 08/14/2021 showed a severely enlarged left ventricular chamber with reduced ejection fraction of 15 to 20%. Chronic obstructive pulmonary disease Combined systolic and diastolic cardiac dysfunction Echocardiogram on 08/14/2021 showed a severely reduced ejection fraction of 15 to 20% as well as diastolic dysfunction. Gastroesophageal reflux disease Hypertension Peptic ulcer disease Polysubstance abuse <ROBINSON Quiroga - Last Filed: 10/09/21 15:45> Surgical History Surgical History: Surgical History History of colonoscopy with polypectomy History of hysterectomy History of tubal ligation <ROBINSON Quiroga - Last Filed: 10/09/21 15:45> Family History Family History: Family History Father Acute myocardial infarction Mother Cerebrovascular accident Other No problems noted. Sibling Cancer <ROBINSON Quiroga - Last Filed: 10/09/21 15:45> Social History Social History: Social History Social History: Surrogate decision maker: Code status: Full code. Smoking packs per day: 0.25 Smoking cigarettes per day: 5.0 Years smoked: 30 Smoking pack-years:
[2021-10-09] MEDS: FUROSEMIDE INJ 40 MG/4 ML VIAL 20 MG IV PUSH (16:09)
[2021-10-09] MEDS: rOPINIRole HCL 0.25 MG TABLET PO (20:24)
[2021-10-09] MEDS: REMDESIVIR 100 MG/NS 250 ML 100 MG/250 ML BAG 250 MG IVPB (20:25)
[2021-10-10] VITALS (11 sets, daily range): BP systolic 92–118; BP diastolic 69–91; PULSE 74–99; RESP 17–20; TEMP 35.9–36.7; O2SAT 95–98
--- NOTE | 2021-10-10 00:27 | PC.NURSE ---
Pt whiteboard updated and trash removed/replaced. 2 cups of ice were brought to pt per request. Call light within reach.
--- NOTE | 2021-10-10 02:07 | PC.NURSE ---
Pt rounding completed. Pt is awake in bed watching TV. Call light is within reach. Pt complained of cough; this information writer suggested sipping water and deep breathing to help with cough until cough syrup is due in the am. Pt denied having any other needs at this time and has her call light within reach.
--- NOTE | 2021-10-10 04:07 | PC.NURSE ---
Pt rounding and vs completed. Pt was sleeping upon entering the room, but was cooperative for vs. Christine had 3 spontaneous coughs while this tech writer was in the room, but did not state she had any other needs. Call light is within reach.
[2021-10-10 05:21] LABS: Hematocrit 42.2 % (35.0-49.0); Hemoglobin 13.5 g/dL (12.0-15.0); Mean Corpuscular Hemoglobin 28.8 pg (27.0-31.0); Mean Corpuscular Volume 90.2 fL (78.0-102.0); Mean Platelet Volume 12.4 fl (9.2-11.8); Platelet Count Result 150 K/mm3 (150-420); Red Blood Count 4.68 M/mm3 (4.20-5.40); Red Cell Distribution Width 15.4 % (11.6-14.4)
[2021-10-10 05:35] LABS: INR 1.2
[2021-10-10 05:38] LABS: Alanine Aminotransferase 69 U/L (14-59); Albumin Level 2.7 g/dL (3.4-5.0); Alkaline Phosphatase 55 U/L (46-116); Anion Gap 9 mmol/L (8-16); Aspartate Amino Transferase 84 U/L (15-37); Bilirubin,Total 0.7 mg/dL (0.00-1.00); Blood Urea Nitrogen 28 mg/dL (7-18); Calcium 8.6 mg/dL (8.5-10.1); Carbon Dioxide 25 mmol/L (21-32); Chloride 106 mmol/L (98-108); Estimated CRCL calculation 55 ml/min; Estimated Glomerular Filt Rate 52; Glucose 120 mg/dL (70-99); Osmolality Calculated 296 mOsm/kg (285-295); Sodium 140 mmol/L (136-145); Total Protein 6.8 g/dL (6.4-8.2)
[2021-10-10] MEDS: guaiFENesin/DEXTROMETHORPHAN 5 ML UDC 10 ML PO ×3 (05:41→22:11)
[2021-10-10 08:14] LABS: NT Pro B Type Natriuretic Pept 3220 pg/mL (0-125)
[2021-10-10] MEDS: ENOXAPARIN 40 MG/0.4 ML SYRINGE SUB-Q (08:26)
[2021-10-10] MEDS: NICOTINE (*PBKC) 14 MG PATCH 1 PATCH TRANSDERM (08:26)
[2021-10-10] MEDS: carvediloL 3.125 MG TABLET PO ×2 (08:26→22:11)
[2021-10-10] MEDS: FUROSEMIDE INJ 40 MG/4 ML VIAL 20 MG IV PUSH ×2 (08:26→17:14)
[2021-10-10] MEDS: SPIRONOLACTONE 25 MG TABLET PO (08:27)
[2021-10-10] MEDS: PANTOPRAZOLE 40 MG TABLET PO (08:27)
[2021-10-10] MEDS: ESCITALOPRAM OXALATE 10 MG TABLET PO (08:27)
[2021-10-10] MEDS: SACUBITRIL/VALSARTAN 24-26 MG TABLET 1 TAB PO ×2 (08:45→17:14)
[2021-10-10] MEDS: UMECLIDINIUM BROMIDE 62.5 MCG ELLIPTA 1 PUFF INHALATION (12:16)
[2021-10-10] MEDS: polyethylene glycoL 3350 17 GM POWD.PACK PO (12:50)
[2021-10-10] MEDS: ALBUTEROL SULFATE (*SP) INHALER 4 PUFF INHALATION ×2 (12:51→17:14)
--- NOTE | 2021-10-10 14:43 | PM.IMPN ---
Progress Note: A&P Assessment and Plan (1) Acute on chronic congestive heart failure: Code(s): I50.9 - Heart failure, unspecified <Cornelius Wang ROBINSON Fair - Last Filed: 10/11/21 09:27> Status: Acute <Cornelius PaulROBINSON fonseca - Last Filed: 10/11/21 09:27> Assessment and Plan: Received Lasix 40 mg IV in the ER, continue with 20 mg Lasix BID on the floor, will monitor for fluid overload, monitoring P-BNP 84731 on arrival to the ER, today, EF of 15-20% from Echocardiogram on 10/08/2021, discussed LifeVest with Pt and the need to stop abusing Methamphetamines, continue Coreg 3.125 mg BID 10/10/2021 P-BNP resolving 3220, no CP, breathing improving <Cornelius GilesROBINSON Guillory - Last Filed: 10/11/21 09:27> (2) COVID-19: Code(s): U07.1 - COVID-19 <Cornelius GilesROBINSON Guillory - Last Filed: 10/11/21 09:27> Status: Acute <Cornelius Wang ROBINSON Fair - Last Filed: 10/11/21 09:27> Assessment and Plan: Positive COVID, Remdesivir, Decadron, supplemental oxygen at 3 L/min NC with SpO2 at 96%, will monitor PT/INR 13.2/1.3, Cr 1.26, AST/ALT 85/59 10/10/2021 WBC ^ 13, Off supplemental O2, SpO2 96%, PT/INR 13/1.2, Cr 55, AST/ALT 84/69, Improving symptoms 10/11/2021 WBC v 12.7, Off supplemental, staff gave Pt NC overnight per Pt request SpO2 > 92% at the time, PT/INR 11.9/1.1, Cr 60, AST/ALT 96/92 <Cornelius TishaROBINSON Guillory - Last Filed: 10/11/21 09:27> (3) Polysubstance abuse: Code(s): F19.10 - Other psychoactive substance abuse, uncomplicated <ROBINSON Quiroga - Last Filed: 10/11/21:27> Status: Acute <Cornelius PaulALEXYS fonsecaC - Last Filed: 10/11/21:27> Assessment and Plan: Pt stated she is ready for rehabilitation and would like referral, Consult sent for Case Management to review in the AM. I also discussed her EF of 15/20% and that if she continues Methamphetamine abuse her heart will give out and stop. 10/10/2021 Pt states she would like to go to rehab however she is concerned that she will be out of work and lose her home 10/11/2021 information given to Pt. <Cornelius GilesALEXYS GuilloryC - Last Filed: 10/11/21:27> (4) Acute renal injury: Code(s): N17.9 - Acute kidney failure, unspecified <Cornelius GilesMick Fair APN-C - Last Filed: 10/11/21:27> Status: Acute <Cornelius GilesMick Fair APN-C - Last Filed: 10/11/21:27> Assessment and Plan: Cr 1.25 on arrival and now 1.26, no IVF d/t CHF exacerbation, monitoring I&O 10/10/2021 Cr 1, eCrCl 60, eGFR 58 improved <Cornelius GilesMick Fair APN-C - Last Filed: 10/11/21 09:27> (5) Chronic obstructive pulmonary disease: Code(s): J44.9 - Chronic obstructive pulmonary disease, unspecified <Cornelius GilesMick Fair APN-C - Last Filed: 10/11/21:27> Status: Acute <Cornelius GilesMick Fair APN-C - Last Filed: 10/11/21:27> Assessment and Plan: Stable at this time, has Robitussin, Supplemental Oxygen, has Albuterol MDI PRN since she has COVID, monitoring SpO2 10/10/2021 stable <Cornelius TishaMick Fair APN-C - Last Filed: 10/11/21 09:27> (6) Thrombocytopenia: Code(s): D69.6 - Thrombocytopenia, unspecified <Cornelius TishaMick Fair APN-C - Last Filed: 10/11/21 09:27> Status: Acute <Cornelius TishaMick Fair APN-C - Last Filed: 10/11/21 09:27> Assessment and Plan: Plt 134 and today 118, appears chronic and stable, will monitor 10/10/2021 PLT 170 <ROBINSON Quiroga - Last Filed: 10/11/21 09:27> (7) Gastroesophageal reflux disease: Code(s): K21.9 - Gastro-esophageal reflux disease without esophagitis <ROBINSON Quiroga - Last Filed: 10/11/21 09:27> Status: Acute <ROBINSON Quiroga - Last Filed: 10/11/21 09:27> Assessment and Plan: Continue Protonix <ROBINSON Quiroga - Last Filed: 10/11/21 09:27> (8) Combined systolic and diastolic cardiac dysfunction: Code(s): I51.89 - Other ill-defined heart diseases
[2021-10-10] MEDS: rOPINIRole HCL 0.25 MG TABLET PO (22:11)
[2021-10-10] MEDS: TOLNAFTATE 1% POWDER 45 GM BTL 1 APPLIC TOPICAL (22:11)
[2021-10-10] MEDS: REMDESIVIR 100 MG/NS 250 ML 100 MG/250 ML BAG 250 MG IVPB (22:12)
[2021-10-11] VITALS: BP 103/73; PULSE 66; RESP 18; TEMP 36.3; O2SAT 93
[2021-10-11 04:00] VITALS: BP 113/63; PULSE 70; RESP 20; TEMP 36.8; O2SAT 94
[2021-10-11] MEDS: guaiFENesin/DEXTROMETHORPHAN 5 ML UDC 10 ML PO ×2 (06:22→13:04)
[2021-10-11 06:40] LABS: Hematocrit 45.8 % (35.0-49.0); Hemoglobin 14.8 g/dL (12.0-15.0); Mean Corpuscular HGB Conc 32.3 g/dL (32.0-36.0); Mean Corpuscular Hemoglobin 28.9 pg (27.0-31.0); Mean Corpuscular Volume 89.5 fL (78.0-102.0); Mean Platelet Volume 12.3 fl (9.2-11.8); Platelet Count Result 170 K/mm3 (150-420); Red Blood Count 5.12 M/mm3 (4.20-5.40); Red Cell Distribution Width 15.4 % (11.6-14.4); White Blood Count 12.7 K/mm3 (4.8-10.8)
[2021-10-11 06:48] LABS: INR 1.1; Prothrombin Time 11.9 Seconds (9.50-12.10)
[2021-10-11 07:13] LABS: Alanine Aminotransferase 92 U/L (14-59); Albumin Level 2.7 g/dL (3.4-5.0); Alkaline Phosphatase 61 U/L (46-116); Anion Gap 10 mmol/L (8-16); Aspartate Amino Transferase 96 U/L (15-37); Bilirubin,Total 0.7 mg/dL (0.00-1.00); Blood Urea Nitrogen 31 mg/dL (7-18); Calcium 8.8 mg/dL (8.5-10.1); Carbon Dioxide 23 mmol/L (21-32); Chloride 105 mmol/L (98-108); Estimated CRCL calculation 60 ml/min; Estimated Glomerular Filt Rate 58; Glucose 117 mg/dL (70-99); NT Pro B Type Natriuretic Pept 2248 pg/mL (0-125); Osmolality Calculated 293 mOsm/kg (285-295); Potassium 4.4 mmol/L (3.5-5.1); Sodium 138 mmol/L (136-145); Total Protein 7.2 g/dL (6.4-8.2)
[2021-10-11 08:00] VITALS: BP 121/96; PULSE 67; PULSE 78; RESP 20; TEMP 36.5; O2SAT 99
[2021-10-11] MEDS: TOLNAFTATE 1% POWDER 45 GM BTL 1 APPLIC TOPICAL (09:36)
[2021-10-11] MEDS: ENOXAPARIN 40 MG/0.4 ML SYRINGE SUB-Q (09:36)
[2021-10-11] MEDS: SACUBITRIL/VALSARTAN 24-26 MG TABLET 1 TAB PO (09:37)
[2021-10-11] MEDS: NICOTINE (*PBKC) 14 MG PATCH 1 PATCH TRANSDERM (09:37)
[2021-10-11 09:38] VITALS: PULSE 67
[2021-10-11] MEDS: ESCITALOPRAM OXALATE 10 MG TABLET PO (09:38)
[2021-10-11] MEDS: carvediloL 3.125 MG TABLET PO (09:38)
[2021-10-11] MEDS: PANTOPRAZOLE 40 MG TABLET PO (09:38)
[2021-10-11] MEDS: SPIRONOLACTONE 25 MG TABLET PO (09:38)
[2021-10-11] MEDS: FUROSEMIDE INJ 40 MG/4 ML VIAL 20 MG IV PUSH (09:39)
[2021-10-11] MEDS: polyethylene glycoL 3350 17 GM POWD.PACK PO (09:40)
[2021-10-11] MEDS: UMECLIDINIUM BROMIDE 62.5 MCG ELLIPTA 1 PUFF INHALATION (09:43)
[2021-10-11] MEDS: ALBUTEROL SULFATE (*SP) INHALER 4 PUFF INHALATION ×2 (10:06→13:04)
--- NOTE | 2021-10-11 11:10 | PM.DS ---
DS: Admitting Diagnosis Discharge Date 10/11/2021 Admitting Diagnosis COVID, CHF, Substance Abuse DS: Discharge Diagnosis Discharge Diagnosis (1) Acute on chronic congestive heart failure: Code(s): I50.9 - Heart failure, unspecified Status: Acute Assessment and Plan: Received Lasix 40 mg IV in the ER, continue with 20 mg Lasix BID on the floor, will monitor for fluid overload, monitoring P-BNP 13352 on arrival to the ER, today, EF of 15-20% from Echocardiogram on 10/08/2021, discussed LifeVest with Pt and the need to stop abusing Methamphetamines, continue Coreg 3.125 mg BID 10/10/2021 P-BNP resolving 3220, no CP, breathing improving 10/11/2021 BNP 2248, lungs clear, has been off supplemental oxygen since yesterday with exception that Pt requested the oxygen be placed during sleep, her SpO2 was >92% prior to requesting the O2. (2) COVID-19: Code(s): U07.1 - COVID-19 Status: Acute Assessment and Plan: Positive COVID, Remdesivir, Decadron, supplemental oxygen at 3 L/min NC with SpO2 at 96%, will monitor PT/INR 13.2/1.3, Cr 1.26, AST/ALT 85/59 10/10/2021 WBC ^ 13, Off supplemental O2, SpO2 96%, PT/INR 13/1.2, Cr 55, AST/ALT 84/69, Improving symptoms 10/11/2021 WBC v 12.7, Off supplemental, staff gave Pt NC overnight per Pt request SpO2 > 92% at the time, PT/INR 11.9/1.1, Cr 60, AST/ALT 96/92 10/11/2021 will continue Decadron to complete 10 day course. Pt to remain quarantined until 10/22/2021 (3) Polysubstance abuse: Code(s): F19.10 - Other psychoactive substance abuse, uncomplicated Status: Acute Assessment and Plan: Pt stated she is ready for rehabilitation and would like referral, Consult sent for Case Management to review in the AM. I also discussed her EF of 15/20% and that if she continues Methamphetamine abuse her heart will give out and stop. 10/10/2021 Pt states she would like to go to rehab however she is concerned that she will be out of work and lose her home 10/11/2021 information given to Pt. (4) Acute renal injury: Code(s): N17.9 - Acute kidney failure, unspecified Status: Acute Assessment and Plan: Cr 1.25 on arrival and now 1.26, no IVF d/t CHF exacerbation, monitoring I&O 10/11/2021 Cr 1, eCrCl 60, eGFR 58 improved (5) Chronic obstructive pulmonary disease: Code(s): J44.9 - Chronic obstructive pulmonary disease, unspecified Status: Acute Assessment and Plan: Stable at this time, has Robitussin, Supplemental Oxygen, has Albuterol MDI PRN since she has COVID, monitoring SpO2 10/10/2021 stable (6) Thrombocytopenia: Code(s): D69.6 - Thrombocytopenia, unspecified Status: Acute Assessment and Plan: Plt 134 and today 118, appears chronic and stable, will monitor 10/11/2021 PLT 170 (7) Gastroesophageal reflux disease: Code(s): K21.9 - Gastro-esophageal reflux disease without esophagitis Status: Acute Assessment and Plan: Continue Protonix (8) Combined systolic and diastolic cardiac dysfunction: Code(s): I51.89 - Other ill-defined heart diseases Status: Acute Assessment and Plan: Significant history of COPD, Anxiety, HTN, EF of 15-20%, cardiac monitoring (9) Anxiety: Code(s): F41.9 - Anxiety disorder, unspecified Status: Acute Assessment and Plan: Continue Lexapro DS: Summary Hospital Course Hospital Course: No extra oxygen requirement needed, breathing improved Time Spent with Patient Time attestation: Total time spent providing and/or coordinating discharge services: < 30 minutes DS: Data Data Completed and Pending Labs on day of discharge: Labs from last 24 hours 10/11/21 10/11/21 10/11/21 06:16 06:16 06:16 WBC 12.7 H RBC 5.12 Hgb 14.8 Hct 45.8 MCV 89.5 MCH 28.9 MCHC 32.3 RDW 15.4 H Plt Count 170 MPV 12.3 H PT INR Sodium 138 Potassium 4.4 Chloride 105 Carbon Dioxide 23 Anion
[2021-10-11 11:50] VITALS: BP 98/75; PULSE 79; PULSE 85; RESP 20; TEMP 36.1; O2SAT 95
--- NOTE | 2021-10-11 14:48 | PC.NURSE ---
Patient discharged home transported by family member via personal vehicle. Discharge instructions given and patient acknowledged understanding. IV site to Rt. wrist and Jugular discontinued and removed prior to discharge. All personal property had been bagged up and taken with patient. Staff transported patient via WC to main entrance and assisted into personal vehicle for transport to personal residence.
--- NOTE | 2021-10-13 12:54 | PC.NURSE ---
Unable to contact for discharge call back.
== END 2021-10-11 14:35 | disposition home or self-care (01) | DRG 137 ==
LOC: CHSED 18:21 → CHS2ND 20:43
PROVIDERS: Nurse Practitioner Family; Admitting Provider Emergency Medicine; Emergency Provider Emergency Medicine; PCP Nurse Practitioner Family; Visit Provider Emergency Medicine
DX: U07.1 COVID-19 (principal); I11.0 Hypertensive heart disease with heart failure; I50.43 Acute on chronic combined systolic (congestive) and diastolic (congestive) heart failure; N17.9 Acute kidney failure, unspecified; D69.6 Thrombocytopenia, unspecified; I42.9 Cardiomyopathy, unspecified; J44.9 Chronic obstructive pulmonary disease, unspecified; K21.9 Gastro-esophageal reflux disease without esophagitis; K27.9 Peptic ulcer, site unspecified, unspecified as acute or chronic, without hemorrhage or perforation; F41.9 Anxiety disorder, unspecified; F15.10 Other stimulant abuse, uncomplicated; F12.10 Cannabis abuse, uncomplicated; F17.200 Nicotine dependence, unspecified, uncomplicated
CPT/HCPCS: 36415; 36600; 71045; 80053; 80307; 81001; 82805; 82948; 83735; 83880; 84484; 85025; 85027; 85055; 85610; 87502; 93005; 96365; 96366; 96372; 96374; 96375; 99285; A9270; C9803; G0378; G0379; J1100; J1650; J1940; J8540; U0003; U0005

== ENCOUNTER 2021-12-18 16:25 | Inpatient (IN) | payer BC, SELFPAY ==
[2021-12-18] VITALS (8 sets, daily range): BP systolic 109–141; BP diastolic 67–97; PULSE 81–121; RESP 19–22; TEMP 36.6–37.1; O2SAT 94–99; BMI 34.3
--- NOTE | ~2021-12-18 | XR_ITS ---
EXAMINATION: XR chest 1V portable EXAM DATE: 12/18/2021 17:40 INDICATION: dyspnea, severe cough . TECHNIQUE: Portable AP frontal chest x-ray was obtained. Comparison is made to prior examination from 10/08/2021. FINDINGS: There is moderate cardiomegaly. Suspect ill-defined bibasilar edema or pneumonia. No sizabl e pleural effusion. No pneumothorax. There are bony degenerative changes. IMPRESSION: Cardiomegaly. Ill-defined basilar edema or pneumonia. Reviewed, dictated and finalized at location G. TENANCE SHOP WELDER
--- NOTE | ~2021-12-18 | CT_ITS ---
EXAMINATION: CTA chest PE protocol EXAM DATE: 12/18/2021 18:16 INDICATION: SOB, dyspnea, elev d-dimer, severe cough TECHNIQUE: Spiral CTA of the chest (pulmonary arteries) was performed with 100 cc Omnipaque 350 intr avenous contrast injection. Images were acquired during the pulmonary arterial phase. Coronal maxi mum intensity projection 3D-reconstructions were created by the technologist on dedicated workstation . Axial, coronal and sagittal reformatted images were reviewed. The dose-length product (DLP) for t his examination was 470.21 mGy-cm. The exposure was tailored according to patient size (auto mA exp osure control), and iterative reconstruction (ASIR) was used as additional dose reduction technique. There is no prior study for comparison. FINDINGS: Pulmonary arteries are well opacified and without intraluminal filling defects. No thora cic aortic dissection. The lungs are clear. There is moderate-sized right pleural effusion. There is peripheral basilar ill-defined groundglass opacities, could be in edema or pneumonia. Mild emphyse ma. Tracheobronchial tree is patent. There is no mediastinal, hilar or axillary lymphadenopathy. There is no pneumothorax. Moderate cardiomegaly. There is moderate coronary arterial calcificatio n, arterial sclerosis. Small amount of perihepatic ascites. There is mild to moderate thoracic spon dylosis without osteoblastic or osteolytic lesions identified. IMPRESSION: 1. Moderate cardiomegaly. Moderate right pleural effusion. 2. Mild basilar groundglass airspace disease, probably edema or possibly pneumonia. 3. Small amount of ascites. Reviewed, dictated and finalized at location G. OPERATOR IMPRESSION: 1. Moderate cardiomegaly. Moderate right pleural effusion. 2. Mild basilar groundglass airspace disease, probably edema or possibly pneum onia. 3. Small amount of ascites.
--- NOTE | 2021-12-18 16:37 | ECG_ITS ---
Measurements Intervals [place] Rate: 122 P: 69 AL: 154 QRS: 67 QRSD: 104 T: 70 QT: 417 QTc: 595 Interpretive Statements SINUS TACHYCARDIA DELAYED PRECORDIAL R/S TRANSITION BORDERLINE ST-T WAVE ABNORMALITY- INF/LAT LEADS ABNORMAL ECG Electronically Signed On 12-18-2021 20:27:45 WHIPPER by Oh Bangura D.O.
--- NOTE | 2021-12-18 17:07 | ED.SOB ---
HPI - SOB/Dyspnea General Chief Complaint: Shortness of Breath/Dyspnea Stated Complaint: AMB Time Seen by Provider: 12/18/21 17:07 Source: patient and EMS Mode of arrival: EMS Limitations: no limitations History of Present Illness HPI Narrative: this is a 51-year-old female that presents via EMS with increasing shortness of breath for the last 3 days the patient has a prescription for spironolactone at her pharmacy that she failed to picker tender for the last 3 days, patient shortness of breath with no chest pain no nausea vomiting no abdominal pain does have some peripheral edema, with no fever chills has a history of CHF with systolic and diastolic dysfunction with an ejection fraction of 15 to 25%. The patient with history of COPD and hypertension. Patient currently saturations are 100% on room air resting comfortably vitals are stable does have an elevated heart rate patient on vaccinated for COVID. MD elicited complaint: shortness of breath Pertinent past history: COPD and congestive heart failure Onset (ago): hour(s) Context: anxiety Timing: intermittent Severity: moderate Exacerbating factors: other ( out of medication) Relieving factors: bronchodilators Known history of: COPD and congestive heart failure Associated symptoms: denies other symptoms Related Data Home Medications Medication Instructions Recorded Confirmed lorazepam 1 mg tablet 1 mg PO TID PRN 10/20/21 12/18/21 Allergies Allergy/AdvReac Type Severity Reaction Status Date / Time codeine Allergy Hives Verified 10/20/21 13:16 Review of Systems Review of Systems: All systems reviewed & are unremarkable except as noted in HPI and below PMFSH Past Medical History Medical History Anxiety Cardiomyopathy Echocardiogram on 08/14/2021 showed a severely enlarged left ventricular chamber with reduced ejection fraction of 15 to 20%. Chronic obstructive pulmonary disease Combined systolic and diastolic cardiac dysfunction Echocardiogram on 08/14/2021 showed a severely reduced ejection fraction of 15 to 20% as well as diastolic dysfunction. Gastroesophageal reflux disease Hypertension Peptic ulcer disease Polysubstance abuse Surgical History Surgical History History of colonoscopy with polypectomy History of hysterectomy History of tubal ligation Family History Family History Father Acute myocardial infarction Mother Cerebrovascular accident Other No problems noted. Sibling Cancer Social History Social History Social History: Surrogate decision maker: Code status: Full code. Smoking packs per day: 0 Smoking cigarettes per day: 0.0 Years smoked: 30 Smoking pack-years: 0.00 Smoking status: Former smoker Tobacco type: cigarettes Second hand tobacco smoke exposure: No Additional smoking assessment comments: Patient reports being down to about 2 cigarettes a day. Alcohol intake: never Substance use: current Substance use type: marijuana and amphetamines Last use: Patient uses methamphetamines every couple of weeks. Additional living arrangements comments: The patient lives in [place]. Friend is staying with her currently. 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 Spiritual care concerns: No Exam Const: General: no acute distress and alert Orientation/consciousness: patient oriented x3 HENMT: Head: normal to inspection Eyes: Conjunctivae: conjunctivae normal Pupils: Equal, round and reactive pupils present EOM: EOMs intact bilaterally Direct Ophthalmoscopy: no photophobia Neck: Neck: normal visual inspection, no lymphadenopathy and no meningeal signs Chest: Chest palpation & inspection: normal inspection of the chest Resp: Effort & Inspection: normal re
[2021-12-18] MEDS: methylPREDNISolone SOD SUCC 125 MG VIAL IV PUSH (17:17)
[2021-12-18] MEDS: ALBUTEROL SULFATE (*SP) INHALER 2 PUFF INHALATION (17:17)
[2021-12-18 17:18] LABS: Basophils Absolute Auto 0.06 K/mm3 (0.00-0.10); Basophils Percent Auto 0.9 % (0.0-1.0); Eosinophils Absolute Auto 0.08 K/mm3 (0.02-0.50); Eosinophils Percent Auto 1.2 % (1.0-6.0); Hematocrit 45.6 % (35.0-49.0); Hemoglobin 14.1 g/dL (12.0-15.0); Immature Granulocyte Absolute 0.02 K/mm3 (0.00-0.00); Immature Granulocyte Percent A 0.3 % (0.0-0.0); Lymphocytes Absolute Auto 1.12 K/mm3 (1.10-4.50); Lymphocytes Percent Auto 16.7 % (18.0-42.0); Mean Corpuscular HGB Conc 30.9 g/dL (32.0-36.0); Mean Corpuscular Hemoglobin 28.5 pg (27.0-31.0); Mean Corpuscular Volume 92.3 fL (78.0-102.0); Mean Platelet Volume 11.7 fl (9.2-11.8); Monocytes Absolute Auto 0.47 K/mm3 (0.10-0.90); Neutrophils Percent Auto 73.9 % (50.0-70.0); Platelet Count Result 145 K/mm3 (150-420); Red Blood Count 4.94 M/mm3 (4.20-5.40); Red Cell Distribution Width 16.6 % (11.6-14.4); White Blood Count 6.7 K/mm3 (4.8-10.8)
[2021-12-18 17:33] LABS: INR 1.1; Partial Thromboplastin Time 24.3 SEC (23.90-30.70)
[2021-12-18 17:36] LABS: D Dimer 1.58 mg/L (0.19-0.50)
[2021-12-18 17:40] LABS: Alanine Aminotransferase 34 U/L (14-59); Albumin Level 3.3 g/dL (3.4-5.0); Alkaline Phosphatase 64 U/L (46-116); Anion Gap 13 mmol/L (8-16); Aspartate Amino Transferase 45 U/L (15-37); Bilirubin,Total 1.4 mg/dL (0.00-1.00); Blood Urea Nitrogen 14 mg/dL (7-18); Carbon Dioxide 24 mmol/L (21-32); Chloride 106 mmol/L (98-108); Estimated Glomerular Filt Rate 49; Glucose 114 mg/dL (70-99); NT Pro B Type Natriuretic Pept 8206 pg/mL (0-125); Osmolality Calculated 297 mOsm/kg (285-295); Potassium 3.8 mmol/L (3.5-5.1); Sodium 143 mmol/L (136-145); Total Protein 7.9 g/dL (6.4-8.2)
[2021-12-18 17:41] LABS: CRP 0.5 mg/dL (0.0-0.9); Estimated CRCL calculation 57 ml/min; Lactic Acid Reflex 1.4 mmol/L (0.4-2.0)
[2021-12-18 17:42] LABS: Troponin I 61.1 ng/L (0.00-60.4)
[2021-12-18 17:58] LABS: SARS-CoV-2 RNA PCR Negative (Negative)
[2021-12-18] MEDS: FUROSEMIDE INJ 40 MG/4 ML VIAL IV PUSH (18:18)
--- NOTE | 2021-12-18 19:23 | PC.NURSE ---
report to pily rene
--- NOTE | 2021-12-18 20:50 | ADMGEN ---
This patient, Christien Montes, was admitted to 2nd Floor Room 202-2. Patient/family oriented to hospital policies and general routines including ID bracelet, bed and alarms, visiting hours, pain management, procedures, bathroom and other care routines, personal items, smoking policy, room service/diet, and visiting hours. Information on how to activate the Rapid Response Team has been discussed. Patient/Family are encouraged to report perceived risks to care and to ask questions if they do not understand what they are told or what they should do.
--- NOTE | 2021-12-18 21:10 | PC.NURSE ---
Pt was brought turkey sandwich, cup of ice, and can of jen mist per pt request.
[2021-12-18] MEDS: carvediloL 3.125 MG TABLET BY MOUTH (22:35)
[2021-12-18] MEDS: rOPINIRole HCL 0.25 MG TABLET BY MOUTH (22:36)
[2021-12-18] MEDS: ENOXAPARIN 30 MG/0.3 ML SYRINGE SUB-Q (22:38)
[2021-12-18 23:13] LABS: Troponin I 58.5 ng/L (0.00-60.4)
[2021-12-19] VITALS (11 sets, daily range): BP systolic 103–124; BP diastolic 81–93; PULSE 48–124; RESP 17–20; TEMP 36.5–36.8; O2SAT 94–98
[2021-12-19 03:59] LABS: Basophils Absolute Auto 0.01 K/mm3 (0.00-0.10); Basophils Percent Auto 0.2 % (0.0-1.0); Eosinophils Absolute Auto 0.01 K/mm3 (0.02-0.50); Eosinophils Percent Auto 0.2 % (1.0-6.0); Hematocrit 41.4 % (35.0-49.0); Immature Granulocyte Absolute 0.01 K/mm3 (0.00-0.00); Immature Granulocyte Percent A 0.2 % (0.0-0.0); Lymphocytes Absolute Auto 0.42 K/mm3 (1.10-4.50); Lymphocytes Percent Auto 10.2 % (18.0-42.0); Mean Corpuscular HGB Conc 31.4 g/dL (32.0-36.0); Mean Corpuscular Hemoglobin 28.8 pg (27.0-31.0); Mean Corpuscular Volume 91.6 fL (78.0-102.0); Mean Platelet Volume 12.5 fl (9.2-11.8); Monocytes Absolute Auto 0.13 K/mm3 (0.10-0.90); Monocytes Percent Auto 3.2 % (2.0-11.0); Neutrophils Absolute Auto 3.5 K/mm3 (1.7-7.2); Platelet Count Result 128 K/mm3 (150-420); Red Blood Count 4.52 M/mm3 (4.20-5.40); Red Cell Distribution Width 16.5 % (11.6-14.4); White Blood Count 4.1 K/mm3 (4.8-10.8)
[2021-12-19 04:21] LABS: Alanine Aminotransferase 30 U/L (14-59); Albumin Level 2.8 g/dL (3.4-5.0); Alkaline Phosphatase 56 U/L (46-116); Anion Gap 10 mmol/L (8-16); Aspartate Amino Transferase 38 U/L (15-37); Bilirubin,Total 1.1 mg/dL (0.00-1.00); Blood Urea Nitrogen 16 mg/dL (7-18); Calcium 8.9 mg/dL (8.5-10.1); Carbon Dioxide 27 mmol/L (21-32); Chloride 105 mmol/L (98-108); Estimated CRCL calculation 46 ml/min; Estimated Glomerular Filt Rate 42; Glucose 136 mg/dL (70-99); NT Pro B Type Natriuretic Pept 9756 pg/mL (0-125); Osmolality Calculated 297 mOsm/kg (285-295); Sodium 142 mmol/L (136-145); Troponin I 53.3 ng/L (0.00-60.4)
--- NOTE | 2021-12-19 08:02 | HOMEO2EVAL ---
Evaluation was performed at [facility] Home Oxygen Evaluation RC: Home Oxygen (O2) Evaluation Start: 12/19/21 07:58 Freq: Status: Active Protocol: RPE Activity Type Activity Date Activity User E-Sign Co-Sign Detail Recorded Client Recorded Date Recorded By Document 12/19/21 07:45 SJJong [id number] 12/19/21 08:01 SJB Document 12/19/21 07:55 SJB [id number] 12/19/21 08:01 SJB 12/19/21 12/19/21 07:45 07:55 Home O2 Evaluation Test Phase Resting Exercise Oxygen Delivery Room Air Room Air Pulse Oximetry (90-100 %) 98 97 Pulse Rate (60-100 beats/min) 108 H 124 H Activity Tolerance Good Rating of Perceived Dyspnea (PD) +2 Mild, Some Difficulty, Noticeable to the Observer Rate of Perceived Exertion (PE) 12 Ambulation Distance (feet) 175 Ambulation Distance (meters) 53.33 Home Oxygen Evaluation Comments WILL BEGIN WALK PT WALKED ON ROOM AIR. APPROX 175 FT ON ROOM AIR PUSHING W/C. BRIDGETTE FAIRLY WELL , ONLY COMPLAINT WAS OF HIP PAIN. SP02 REMAINED AT 97% AND ABOVE. HR UP TO 124. PLB USED THROUGHOUT WALK. Treatment Charges O2 Evaluation - Inpatient
[2021-12-19] MEDS: PANTOPRAZOLE 40 MG TABLET PO (09:28)
[2021-12-19] MEDS: SPIRONOLACTONE 25 MG TABLET BY MOUTH (09:28)
[2021-12-19] MEDS: FUROSEMIDE INJ 40 MG/4 ML VIAL IV PUSH (09:28)
[2021-12-19] MEDS: carvediloL 3.125 MG TABLET BY MOUTH (09:28)
[2021-12-19] MEDS: ESCITALOPRAM OXALATE 10 MG TABLET PO (09:29)
[2021-12-19] MEDS: ENOXAPARIN 30 MG/0.3 ML SYRINGE SUB-Q ×2 (09:29→21:28)
--- NOTE | 2021-12-19 10:24 | ECG_ITS ---
Measurements Intervals [place] Rate: 100 P: 74 TN: 179 QRS: 87 QRSD: 106 T: 264 QT: 371 QTc: 479 Interpretive Statements SINUS TACHYCARDIA POSSIBLE LEFT ATRIAL ENLARGEMENT DELAYED PRECORDIAL R/S TRANSITION ST-T WAVE ABNORMALITY IN INF/LAT LEADS- CONSIDER ISCHEMIA ABNORMAL ECG Electronically Signed On 12-19-2021 12:11:53 OSHA INSPECTOR by Oh Bangura D.O.
--- NOTE | 2021-12-19 14:28 | PM.IMHP ---
H&P: HPI History of Present Illness Date/Time: 12/19/21 14:28 This is a 51 year old female that present to the emergency room with shortness of breath was found to have Trops of Troponin I 61.1 H, WBC6.7, HGB 14.1, SMW804 , NA 143, K 3.8, BUN 14, Cr1.17 . Due to patient past medical history of Cardiomyopathy and a EF of 15-20 % and refusal of a life vest in the past patient will be admitted so she is able to be monitored and trend her Trop and monitor EKG. The rest of the labs are essentially negative. Patient is disheveled complaining of shortness of breath although therapy saturation in the high 90s she has been placed on 2 L of oxygen for comfort. We will give Lasix patient is out of medications per patient she has been out of the medication for approximately 3 days. We will restart patient on her spironolactone and her Coreg trend her labs and monitor for improvement we will call her live out nanny as well. Chief Complaint: Shortness of breath Review of Systems Review of Systems: Shortness of breath, Elevated Trop All systems reviewed & are unremarkable except as noted in HPI and below PMFSH Past Medical History Medical History Anxiety Cardiomyopathy Echocardiogram on 08/14/2021 showed a severely enlarged left ventricular chamber with reduced ejection fraction of 15 to 20%. Chronic obstructive pulmonary disease Combined systolic and diastolic cardiac dysfunction Echocardiogram on 08/14/2021 showed a severely reduced ejection fraction of 15 to 20% as well as diastolic dysfunction. Gastroesophageal reflux disease Hypertension Peptic ulcer disease Polysubstance abuse Surgical History Surgical History History of colonoscopy with polypectomy History of hysterectomy History of tubal ligation Family History Family History Father Acute myocardial infarction Mother Cerebrovascular accident Other No problems noted. Sibling Cancer Social History Social History Social History: Surrogate decision maker: Code status: Full code. Smoking packs per day: 1 Smoking cigarettes per day: 20.0 Years smoked: 30 Smoking pack-years: 30.00 Smoking status: Light tobacco smoker Tobacco type: cigarettes Second hand tobacco smoke exposure: No Additional smoking assessment comments: Patient reports being down to about 2 cigarettes a day. Alcohol intake: never Substance use: current Substance use type: marijuana Last use: 12/15/2021 Additional living arrangements comments: The patient lives in [place]. Friend is staying with her currently. 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 Spiritual care concerns: No Meds Home Medications and Allergies Home Medications Medication Instructions Recorded Confirmed Type furosemide [Lasix] 40 mg PO BID 60 Days #14 tablet 08/25/21 12/18/21 Rx escitalopram oxalate 10 mg tablet 10 mg PO DAILY #30 tablet 10/15/21 12/18/21 Rx witch ade 50 % topical pads 1 pad TOPICAL BID PRN #40 ea 10/15/21 12/19/21 Rx lorazepam 1 mg tablet 1 mg PO TID PRN 10/20/21 12/18/21 History albuterol sulfate 90 mcg/actuation 2 puff INHALATION QID PRN #6.7 g 12/10/21 12/18/21 Rx aerosol inhaler carvedilol 3.125 mg tablet See Rx Instructions .ROUTE 12/10/21 12/18/21 Rx .COMPLEX #60 tablet pantoprazole 40 mg tablet,delayed See Rx Instructions .ROUTE 12/10/21 12/18/21 Rx release .COMPLEX #28 tablet ropinirole 0.5 mg tablet See Rx Instructions .ROUTE 12/10/21 12/18/21 Rx .COMPLEX #30 tablet spironolactone 25 mg tablet See Rx Instructions .ROUTE 12/10/21 12/18/21 Rx .COMPLEX #30 tablet Allergies Allergy/AdvReac Type Severity Reaction Status Date / Time codeine Allergy Hives Verified 10/20/21 13:16 Vital Signs V
[2021-12-19] MEDS: rOPINIRole HCL 0.5 MG TABLET 0.25 MG PO (21:28)
--- NOTE | 2021-12-19 22:00 | PC.NURSE ---
Patient's pulse continues to be irregular varying from 30 to 110. Patient in no distress. Call light in reach.
[2021-12-19] MEDS: ACETAMINOPHEN 325 MG TABLET 650 MG PO (23:37)
[2021-12-20] VITALS: BP 123/84; PULSE 62; RESP 20; TEMP 36.7; O2SAT 95
[2021-12-20 04:00] VITALS: BP 135/91; PULSE 94; RESP 20; TEMP 36.7; O2SAT 96
--- NOTE | 2021-12-20 05:09 | PC.NURSE ---
Dread Starr EMERGENCY PLANNER upated on patient's condition/telemetry with NNO received @ this time.
[2021-12-20 07:44] VITALS: PULSE 94
[2021-12-20 07:51] VITALS: BP 116/54; PULSE 98; RESP 20; TEMP 36.6; O2SAT 95
[2021-12-20 07:51] LABS: Hematocrit 41.4 % (35.0-49.0); Hemoglobin 13.1 g/dL (12.0-15.0); Mean Corpuscular HGB Conc 31.6 g/dL (32.0-36.0); Mean Corpuscular Hemoglobin 28.8 pg (27.0-31.0); Mean Platelet Volume 12.4 fl (9.2-11.8); Platelet Count Result 147 K/mm3 (150-420); Red Blood Count 4.55 M/mm3 (4.20-5.40); Red Cell Distribution Width 16.7 % (11.6-14.4); White Blood Count 7.1 K/mm3 (4.8-10.8)
[2021-12-20 08:15] LABS: Anion Gap 13 mmol/L (8-16); Blood Urea Nitrogen 26 mg/dL (7-18); Calcium 9.1 mg/dL (8.5-10.1); Carbon Dioxide 23 mmol/L (21-32); Chloride 102 mmol/L (98-108); Estimated CRCL calculation 46 ml/min; Estimated Glomerular Filt Rate 41; Glucose 89 mg/dL (70-99); NT Pro B Type Natriuretic Pept 4579 pg/mL (0-125); Osmolality Calculated 289 mOsm/kg (285-295); Potassium 3.7 mmol/L (3.5-5.1); Sodium 138 mmol/L (136-145)
--- NOTE | 2021-12-20 08:44 | PM.DS ---
DS: Admitting Diagnosis Discharge Date 12/20/2021 Admitting Diagnosis CHF, Dyspnea , Medication noncompliance DS: Discharge Diagnosis Discharge Diagnosis (1) Acute exacerbation of CHF (congestive heart failure): Qualifiers: Heart failure type: combined systolic and diastolic Qualified Code(s): I50.43 - Acute on chronic combined systolic (congestive) and diastolic (congestive) heart failure Code(s): I50.9 - Heart failure, unspecified Status: Acute Assessment and Plan: --Oral lasix home dosage -- Spriolactone -- Coreg -- EF 15-24 % according to [facility] from 2020 -- Dr. Bangura called and I discussed patient episode of dropping in ' w SVT last night x1 and then her being tachycardic. Discussed patient needing the life vest and refusal but may consider now per patient. -- BNP 8206, 9756, 4579 trending down ---Needs fro Life Vest (2) Hypertension: Code(s): I10 - Essential (primary) hypertension Status: Acute Assessment and Plan: medication adherence and avoiding drug use is one of the most improtant aspects of patient getting better -- Coreg must take as directed 3.125 -- Spirolactone must take as directed -- (3) Tachycardia: Code(s): R00.0 - Tachycardia, unspecified Status: Acute Assessment and Plan: medicatin adherence and avoiding drug use is one of the most improtant aspects of patient getting better -- Coreg must take as directed 3.125 -- Spirolactone must take as directed (4) Nonadherence to medication: Code(s): Z91.14 - Patient's other noncompliance with medication regimen Status: Acute Assessment and Plan: --- Called [facility] to confirm the last time patient has picked up medication medication reordered for Oct 15 but never picked up. Called in for a refill on 12/10/2021 and no on has come to picke up medication - Discussion with patient n the imoprotance of the medicaton and explained that without the right medication this could lead up to and not exculding DS: Summary Hospital Course Hospital Course: This is a 51-year-old female that was admitted to the hospital with congestive heart failure, and shortness of breath patient had a BNP 8206, 9759, 4579. Patient's D-dimer was 1.58 CT scan was negative for PE positive for pleural effusion questionable pneumonia. Patient had slightly elevated troponins of 61.1, 58.8, 53.3 which had trended down to normal. Patient was weaned off of oxygen received IV steroids, IV Lasix started back on her home medication and when she had that been taking I did have a long discussion with patient as I had called her pharmacy. Explained to patient the risk of not taking medication and causing more damage to her heart. Patient has remained on cardiac telemetry she would be tachycardic had to runs of SVT and while sleeping her heart rate would go as low as the 30s. Call placed to patient's cargo router spoke to Dr. Bangura who will follow up with patient as outpatient at this time we will keep patient on her Metroprolol as she is on a low-dose of 3.125 and he will address any medication changes accordingly. Discussion had with patient regarding smoking sensation I did order a inhaler for home use. At this time patient has shown no signs or symptoms of any infections she is remained afebrile eating and drinking without difficulty and is off of oxygen. Home study to evaluate as to if patient would need oxygen at home in which she did not. Patient was evaluated by physical therapy safe return home at this time. Time Spent with Patient Time attestation: Total time spent providing and/or coordinating discharge services: Exam Narrative: GENERAL:Well-appearing disheveled and in no acute distress. HEAD:Normocephalic, EYES: PERRLA ENT: Nares clear, Mucous membranes moist. CHEST: Clear to course auscultation. No respiratory distress. HEART: Tachycardic to bradycardia rate and rhythm. Normal peripheral pulses.
[2021-12-20] MEDS: ENOXAPARIN 30 MG/0.3 ML SYRINGE SUB-Q (08:48)
[2021-12-20 08:49] VITALS: PULSE 98
[2021-12-20] MEDS: PANTOPRAZOLE 40 MG TABLET PO (08:49)
[2021-12-20] MEDS: FUROSEMIDE INJ 40 MG/4 ML VIAL IV PUSH (08:49)
[2021-12-20] MEDS: ESCITALOPRAM OXALATE 10 MG TABLET PO (08:49)
[2021-12-20] MEDS: carvediloL 3.125 MG TABLET BY MOUTH (08:49)
[2021-12-20] MEDS: SPIRONOLACTONE 25 MG TABLET BY MOUTH (08:49)
--- NOTE | 2021-12-20 11:28 | PC.NURSE ---
1115 dc orders went over. patient well aware of the need to stop at pharmacy to pick meds up since she is out at home. and on wednesday she is to call her primary doctor and commercial credit portfolio manager for follow up. she voices an understanding on doing so and what the importance of this is. tele off and iv removed.
--- NOTE | 2021-12-26 13:40 | PC.NURSE ---
Unable to contact for discharge call back.
== END 2021-12-20 11:15 | disposition home or self-care (01) | DRG 194 ==
LOC: CHSED 18:35 → CHS2ND 18:44
PROVIDERS: Nurse Practitioner Family; Admitting Provider Emergency Medicine; Emergency Provider Emergency Medicine; PCP Nurse Practitioner Family; Visit Provider Emergency Medicine
DX: I11.0 Hypertensive heart disease with heart failure (principal); J18.9 Pneumonia, unspecified organism; I50.43 Acute on chronic combined systolic (congestive) and diastolic (congestive) heart failure; I42.9 Cardiomyopathy, unspecified; J44.9 Chronic obstructive pulmonary disease, unspecified; K21.9 Gastro-esophageal reflux disease without esophagitis; F41.9 Anxiety disorder, unspecified; Z20.822 Contact with and (suspected) exposure to COVID-19; Z72.0 Tobacco use; Z91.14 Patient's other noncompliance with medication regimen
CPT/HCPCS: 36415; 71045; 71275; 80048; 80053; 83605; 83735; 83880; 84484; 85025; 85027; 85380; 85610; 85730; 86140; 87040; 93005; 94618; 96374; 96375; 99285; A9270; C9803; J0456; J0696; J1650; J1940; J2930; Q9967; U0003; U0005

== ENCOUNTER 2021-12-23 12:32 | Outpatient (CLI) | payer BC, SELFPAY ==
[2021-12-23 12:56] LABS: Basophils Absolute Auto 0.04 K/mm3 (0.00-0.10); Basophils Percent Auto 0.7 % (0.0-1.0); Eosinophils Absolute Auto 0.09 K/mm3 (0.02-0.50); Eosinophils Percent Auto 1.6 % (1.0-6.0); Hematocrit 44.5 % (35.0-49.0); Immature Granulocyte Absolute 0.01 K/mm3 (0.00-0.00); Immature Granulocyte Percent A 0.2 % (0.0-0.0); Lymphocytes Absolute Auto 1.35 K/mm3 (1.10-4.50); Lymphocytes Percent Auto 23.3 % (18.0-42.0); Mean Corpuscular HGB Conc 31.5 g/dL (32.0-36.0); Mean Corpuscular Hemoglobin 28.8 pg (27.0-31.0); Mean Corpuscular Volume 91.6 fL (78.0-102.0); Mean Platelet Volume 12.7 fl (9.2-11.8); Monocytes Absolute Auto 0.51 K/mm3 (0.10-0.90); Monocytes Percent Auto 8.8 % (2.0-11.0); Neutrophils Absolute Auto 3.8 K/mm3 (1.7-7.2); Neutrophils Percent Auto 65.4 % (50.0-70.0); Platelet Count Result 126 K/mm3 (150-420); Red Blood Count 4.86 M/mm3 (4.20-5.40); Red Cell Distribution Width 16.6 % (11.6-14.4); White Blood Count 5.8 K/mm3 (4.8-10.8)
[2021-12-23 13:18] LABS: Alanine Aminotransferase 38 U/L (14-59); Albumin Level 3.3 g/dL (3.4-5.0); Alkaline Phosphatase 56 U/L (46-116); Anion Gap 11 mmol/L (8-16); Aspartate Amino Transferase 45 U/L (15-37); Bilirubin,Total 1.3 mg/dL (0.00-1.00); Blood Urea Nitrogen 21 mg/dL (7-18); Calcium 9.3 mg/dL (8.5-10.1); Carbon Dioxide 28 mmol/L (21-32); Chloride 102 mmol/L (98-108); Estimated Glomerular Filt Rate 47; Glucose 98 mg/dL (70-99); NT Pro B Type Natriuretic Pept 4681 pg/mL (0-125); Osmolality Calculated 295 mOsm/kg (285-295); Potassium 3.9 mmol/L (3.5-5.1); Sodium 141 mmol/L (136-145); Total Protein 7.2 g/dL (6.4-8.2)
[2021-12-25 14:29] LABS: Vitamin D 25 Hydroxy 19 ng/mL (30-100)
== END 2021-12-23 12:33 | disposition home or self-care (01) ==
LOC: CHSLAB 12:34
PROVIDERS: PCP Nurse Practitioner Family; Visit Provider Nurse Practitioner Family
DX: J18.9 Pneumonia, unspecified organism (principal); I50.9 Heart failure, unspecified; Z00.00 Encounter for general adult medical examination without abnormal findings; Z79.899 Other long term (current) drug therapy
CPT/HCPCS: 36415; 80053; 82306; 83880; 85025

== ENCOUNTER 2023-05-30 20:51 | Observation (INO) | payer BC, SELFPAY ==
[2023-05-30] VITALS (17 sets, daily range): BP systolic 112–120; BP diastolic 95–97; PULSE 90–119; RESP 14–36; TEMP 37.6; O2SAT 84–100
--- NOTE | ~2023-05-30 | CT_ITS ---
Clinical Indication: Cough, abdominal pain CT Scan of the Chest, Abdomen, and Pelvis with Contrast: Technique: Contiguous sections were acquired throughout the chest, abdomen, and pelvis after intraven ous administration of 100 cc of Omnipaque 350. Dose reduction technique was used on this scan by rl peterson automated exposure control and iterative reconstruction technique. The dose-length product (DL P) was 1257.05 mGy-cm. COMPARISON: 12/18/2021 and 08/11/2021 Findings: There is no evidence of any significant mediastinal, hilar or axillary lymphadenopathy. There is card iomegaly with pacemaker device. No aortic aneurysm. No pulmonary embolus identified. No pericardial e ffusion. There are small bilateral pleural effusions, right greater than left. There is mild diffuse interstit ial thickening with minimal patchy groundglass opacities, findings consistent with mild pulmonary astrid ma. There is diffuse fatty infiltration of liver. There is probable mild gallbladder wall thickening, non specific. There is splenomegaly, similar to prior exam from 08/11/2021. The pancreas, adrenals and kid neys are within normal limits. No evidence of aortic aneurysm. There are prominent beatrice hepatis lym ph nodes with haziness in the beatrice hepatis region and peripancreatic region.. No bowel obstruction or bowel wall thickening. There is no evidence to suggest acute appendicitis. Urinary bladder is unremarkable. Stable masslike lesion just distal to the bifurcation of the right c ommon iliac vessels is similar to exam from 2020, consistent with the right ovary. Patient is post hy sterectomy. No ascites. Impression: No definite pulmonary embolus seen. Findings consistent with mild pulmonary edema, predominantly interstitial, with associated small bila teral pleural effusions. Diffuse fatty infiltration of liver. Stable splenomegaly, nonspecific. Haziness and mild lymphadenopathy in the beatrice hepatis region, similar to prior exam. Findings are n onspecific. Consider mild acute pancreatitis. Mild gallbladder wall thickening, nonspecific. If there is concern for acute cholecystitis, consider additional dedicated gallbladder evaluation. Reviewed, dictated and finalized at location . Impression: No definite pulmonary embolus seen. Findings consistent with mild pulmonary edema, predominantly interstitial, with associated small bilateral pleural effusions. Diffuse fatty infiltration of liver. Stable splenomegaly, nonspecific. Haziness and mild lymphadenopathy in the beatrice hepatis region, similar to prio r exam. Findings are nonspecific. Consider mild acute pancreatitis. Mild gallbladder wall thickening, nonspecific. If there is concern for acute ch olecystitis, consider additional dedicated gallbladder evaluation.
--- NOTE | ~2023-05-30 | XR_ITS ---
Portable chest x-ray Comparison: 12/18/2021 Clinical History: Cough Findings: There is mild to moderate pulmonary edema pattern. Questionable minimal pleural effusions. Cardiomediastinal silhouette is stable, with pacemaker device. Bones and soft tissues are unremarka ble. Impression: Zhju-yn-[id number] pulmonary edema pattern with questionable minimal pleural effusions. Stable cardiomegaly, now with pacemaker device. Reviewed, dictated and finalized at location M. Impression: Tguj-dx-[id number] pulmonary edema pattern with questionable minimal pleural effu sions. Stable cardiomegaly, now with pacemaker device.
--- NOTE | 2023-05-30 21:10 | ED.GENADULT ---
HPI - General Adult General Chief complaint: Shortness of Breath/Dyspnea Stated complaint: SOB Time Seen by Provider: 05/30/23 21:10 Source: patient Mode of arrival: ambulatory Limitations: no limitations History of Present Illness HPI narrative: 53-year-old white female with history of CHF and cirrhosis COPD and emphysema comes in via EMS complaining of shortness of breath for the past 2 days complains of pain on her right side of her abdomen coughing up yellow sputum. All this was a aggravated when her air conditioning went out today stroke so complains of back pain PND orthopnea she has been range paining water for the last 2 days although it has gotten just a little bit better today. patient admits to missing a few doses of her diuretics this week. She is followed by her log sawyer Dr. Corado. She also has a history of implantable defibrillator denies any problems stooling last bowel movement was yesterday he is voiding fine says she has been nauseated from the heat has not had any vomiting. Denies any fever or sore throat. Denies any rash lumps complains of runny nose denies any dizziness except when she coughs and has a coughing spell. She says when she walks she almost feels like she is going to pass out she has hard of hearing but there is no change in that otherwise she is talking and saying okay. Denies any other complaints. Past medical history CHF COPD emphysema cirrhosis she quit alcohol years ago had defibrillatory or place last May in 2021 she does not remember the name of her primary care doctor. She has a history of hypertension . Denies any history of kidney disease venous thromboembolism and anemia hypo thyroidism stroke mini strokes or cancer. Social history. Patient used marijuana today denies any other illicit drug use. Quit smoking 1 year ago cigarettes. Allergies no known drug allergies past surgical history defibrillator hysterectomy ovarian cyst. Related Data Home Medications Medication Instructions Recorded Confirmed dapagliflozin propanediol 10 mg 10 mg PO DAILY 05/30/23 05/30/23 tablet (Farxiga) sacubitril 24 mg-valsartan 26 mg 1 tablet PO BID 05/30/23 05/30/23 tablet (Entresto) Allergies Allergy/AdvReac Type Severity Reaction Status Date / Time codeine Allergy Hives Verified 01/12/22 13:58 Review of Systems Review of Systems: All systems reviewed & are unremarkable except as noted in HPI and below PMFSH Past Medical History Medical History Anxiety Cardiomyopathy Echocardiogram on 08/14/2021 showed a severely enlarged left ventricular chamber with reduced ejection fraction of 15 to 20%. Chronic obstructive pulmonary disease Combined systolic and diastolic cardiac dysfunction Echocardiogram on 08/14/2021 showed a severely reduced ejection fraction of 15 to 20% as well as diastolic dysfunction. Gastroesophageal reflux disease Hypertension Peptic ulcer disease Polysubstance abuse Surgical History Surgical History History of colonoscopy with polypectomy History of hysterectomy History of tubal ligation Family History Family History Father Acute myocardial infarction Mother Cerebrovascular accident Other No problems noted. Sibling Cancer Social History Social History Social History: Surrogate decision maker: Code status: Full code. Smoking packs per day: 1 Smoking cigarettes per day: 20.0 Years smoked: 30 Smoking pack-years: 30.00 Smoking status: Former smoker Tobacco type: cigarettes Second hand tobacco smoke exposure: No Additional smoking assessment comments: Patient reports being down to about 2 cigarettes a day. Alcohol intake: never Substance use: current Substance use type: marijuana Last use: 0
--- NOTE | 2023-05-30 21:25 | ECG_ITS ---
Measurements Intervals [place] Rate: 116 P: 43 ME: 182 QRS: 0 QRSD: 105 T: 63 QT: 409 QTc: 569 Interpretive Statements SINUS TACHYCARDIA LEFT ATRIAL ENLARGEMENT ST-T WAVE ABNORMALITY IN ANTEROLAT/HIGH LAT LEADS- CONSIDER ISCHEMIA BASELINE ARTIFACT- I, II, III, AVL, V1-V6 ABNORMAL ECG NO PREVIOUS ECG AVAILABLE FOR COMPARISON Electronically Signed On 05-31-2023 8:16:07 CDT by Oh Bangura D.O.
[2023-05-30] MEDS: IPRATROPIUM 0.5 MG/ALBUTEROL SULFATE 2.5 MG AMPUL.NEB 3 ML INHALATION (21:31)
[2023-05-30] MEDS: IPRATROPIUM 0.5 MG/ALBUTEROL SULFATE 2.5 MG AMPUL.NEB 3 ML (21:32)
[2023-05-30 22:34] LABS: Hematocrit 38.6 % (35.0-49.0); Hemoglobin 12.3 g/dL (12.0-15.0); Immature Platelet Fraction Pct 3.8 % (1.0-7.0); Mean Corpuscular HGB Conc 31.9 g/dL (32.0-36.0); Mean Corpuscular Hemoglobin 30.5 pg (27.0-31.0); Mean Corpuscular Volume 95.8 fL (78.0-102.0); Mean Platelet Volume 11.9 fl (9.2-11.8); Platelet Count Result 127 K/mm3 (150-420); Red Blood Count 4.03 M/mm3 (4.20-5.40); Red Cell Distribution Width 15.7 % (11.6-14.4); White Blood Count 5.3 K/mm3 (4.8-10.8)
[2023-05-30 22:46] LABS: INR 1.1; Partial Thromboplastin Time 25.9 SEC (23.90-30.70); Prothrombin Time 11.5 Seconds (9.50-12.10)
[2023-05-30 22:50] LABS: Lactic Acid Reflex 1.1 mmol/L (0.4-2.0)
[2023-05-30 22:53] LABS: D Dimer 1.56 mg/L (0.19-0.50)
[2023-05-30 22:54] LABS: Alanine Aminotransferase 25 U/L (14-59); Albumin Level 3.4 g/dL (3.4-5.0); Alkaline Phosphatase 87 U/L (46-116); Anion Gap 9 mmol/L (8-16); Aspartate Amino Transferase 21 U/L (15-37); Bilirubin,Total 1.6 mg/dL (0.00-1.00); Blood Urea Nitrogen 11 mg/dL (7-18); Calcium 9.4 mg/dL (8.5-10.1); Carbon Dioxide 26 mmol/L (21-32); Chloride 109 mmol/L (98-108); Estimated CRCL calculation 46 ml/min; Estimated Glomerular Filt Rate 44; Glucose 117 mg/dL (70-99); Lipase 19 U/L (16-77); Magnesium 1.7 mg/dL (1.8-2.4); NT Pro B Type Natriuretic Pept 17151 pg/mL (0-125); Osmolality Calculated 298 mOsm/kg (285-295); Potassium 4.1 mmol/L (3.5-5.1); Sodium 144 mmol/L (136-145); Total Protein 7.3 g/dL (6.4-8.2)
[2023-05-31] VITALS (25 sets, daily range): BP systolic 105–140; BP diastolic 75–110; PULSE 78–113; RESP 16–32; TEMP 35.7–36.9; O2SAT 81–99; BMI 30.7
--- NOTE | 2023-05-31 00:05 | PC.NURSE ---
Pt resting, VSS at this time. awaiting CT results.
--- NOTE | 2023-05-31 01:07 | PC.NURSE ---
Pt sleeping and awakens easily, ERP Dr Celaya talking pt about admit and pt wishes to stay here for tx. She has some slight SOB and cough when awakening, SPO2 is 96% on RA. Call placed to [facility] for call back for admission.
[2023-05-31] MEDS: FUROSEMIDE INJ 40 MG/4 ML VIAL IV PUSH (01:13)
--- NOTE | 2023-05-31 01:54 | PC.NURSE ---
Call placed to floor for bed assignment. Pt will go to rm 204.
[2023-05-31] MEDS: MAGNESIUM SULF 2 GM/WATER 50ML 2 GM/50 ML BAG IVPB (02:06)
--- NOTE | 2023-05-31 02:51 | ADMGEN ---
This patient, Christine Montes, was admitted to 2nd Floor Room 204-2. Patient/family oriented to hospital policies and general routines including ID bracelet, bed and alarms, visiting hours, pain management, procedures, bathroom and other care routines, personal items, smoking policy, room service/diet, and visiting hours. Information on how to activate the Rapid Response Team has been discussed. Patient/Family are encouraged to report perceived risks to care and to ask questions if they do not understand what they are told or what they should do.
[2023-05-31] MEDS: IPRATROPIUM 0.5 MG/ALBUTEROL SULFATE 2.5 MG AMPUL.NEB 3 ML INHALATION ×3 (05:09→18:28)
[2023-05-31 06:14] LABS: Basophils Absolute Auto 0.06 K/mm3 (0.00-0.10); Basophils Percent Auto 1.3 % (0.0-1.0); Eosinophils Absolute Auto 0.07 K/mm3 (0.02-0.50); Eosinophils Percent Auto 1.5 % (1.0-6.0); Hematocrit 38.8 % (35.0-49.0); Hemoglobin 12.6 g/dL (12.0-15.0); Immature Granulocyte Absolute 0.01 K/mm3 (0.00-0.00); Immature Granulocyte Percent A 0.2 % (0.0-0.0); Lymphocytes Absolute Auto 1.26 K/mm3 (1.10-4.50); Lymphocytes Percent Auto 26.4 % (18.0-42.0); Mean Corpuscular HGB Conc 32.5 g/dL (32.0-36.0); Mean Corpuscular Volume 95.3 fL (78.0-102.0); Mean Platelet Volume 11.8 fl (9.2-11.8); Monocytes Percent Auto 8.4 % (2.0-11.0); Neutrophils Percent Auto 62.2 % (50.0-70.0); Platelet Count Result 128 K/mm3 (150-420); Red Blood Count 4.07 M/mm3 (4.20-5.40); Red Cell Distribution Width 15.7 % (11.6-14.4); White Blood Count 4.8 K/mm3 (4.8-10.8)
--- NOTE | 2023-05-31 06:15 | PC.NURSE ---
Ishaan Starr notified regarding clarification of medication order. New order was put in for lasix 20 mg IVP BID.
[2023-05-31 06:31] LABS: Anion Gap 10 mmol/L (8-16); Blood Urea Nitrogen 13 mg/dL (7-18); Calcium 9.2 mg/dL (8.5-10.1); Carbon Dioxide 27 mmol/L (21-32); Chloride 106 mmol/L (98-108); Estimated CRCL calculation 42 ml/min; Estimated Glomerular Filt Rate 41; Glucose 115 mg/dL (70-99); Magnesium 2.2 mg/dL (1.8-2.4); Osmolality Calculated 297 mOsm/kg (285-295); Sodium 143 mmol/L (136-145)
[2023-05-31] MEDS: ENOXAPARIN 40 MG/0.4 ML SYRINGE SUB-Q (08:32)
[2023-05-31] MEDS: FUROSEMIDE INJ 20 MG/2 ML VIAL IV PUSH ×2 (08:33→17:01)
[2023-05-31] MEDS: carvediloL 3.125 MG TABLET BY MOUTH (09:39)
[2023-05-31] MEDS: EMPAGLIFLOZIN 25 MG TABLET BY MOUTH (09:39)
[2023-05-31] MEDS: SACUBITRIL/VALSARTAN 24-26 MG TABLET 1 TAB PO ×2 (09:40→20:38)
[2023-05-31] MEDS: SPIRONOLACTONE 25 MG TABLET BY MOUTH ×2 (09:40→17:01)
--- NOTE | 2023-05-31 09:53 | PM.IMHP ---
H&P: HPI History of Present Illness Date/Time: 05/31/23 09:53 Chief Complaint: Shortness of breath, congestive heart failure, cardiomyopathy Narrative: This is a 51-year-old with a past medical history of congestive heart failure with a EF 10-15% left ventricular systolic dysfunction, severe cardiomyopathy.?Patient has been noncompliant and or out the medication . Patient states she has been sick for the past few days. She also has diabetes, smoking cigarettes, hypertension, patient was found to have some [place] [address] in [place] emergency room received 40 of IV Lasix today patient was potassium is 4.0, sodium is 143, BUN 13, creatinine 1.35 improving hemoglobin 12.6, platelets 128. Patient is not oxygen dependent at this time she states that she started to feel better showing great improvement we will continue to keep patient and diurese her more treat her for possible pneumonia a plan for possible discharge patient smokes marijuana on a daily basis currently she has a defibrillator post placed in 2021 Review of Systems Review of Systems: CONSTITUTIONAL: Denies fever, chills, or sweats. EYES: Denies visual changes, redness, or discharge. ENT: Denies rhinorrhea, congestion, sore throat, or otalgia. CARDIOVASCULAR:Denies chest pain, palpitations, reports edema. RESPIRATORY: reports cough or dyspnea. GASTROINTESTINAL: Denies abdominal pain, nausea, vomiting, or diarrhea. GENITOURINARY: Denies dysuria or hematuria. SKIN:[Denies rash or itching. MUSCULOSKELETAL:Denies back pain, joint pain, or myalgia. NEUROLOGIC: Denies headache, numbness, or weakness. PSYCHIATRIC reports anxiety or depression [facility] Past Medical History Medical History Anxiety Cardiomyopathy Echocardiogram on 08/14/2021 showed a severely enlarged left ventricular chamber with reduced ejection fraction of 15 to 20%. Chronic obstructive pulmonary disease Combined systolic and diastolic cardiac dysfunction Echocardiogram on 08/14/2021 showed a severely reduced ejection fraction of 15 to 20% as well as diastolic dysfunction. Gastroesophageal reflux disease Hypertension Peptic ulcer disease Polysubstance abuse Surgical History Surgical History History of colonoscopy with polypectomy History of hysterectomy History of tubal ligation Family History Family History Father Acute myocardial infarction Mother Cerebrovascular accident Other No problems noted. Sibling Cancer Social History Social History Social History: Surrogate decision maker: Code status: Full code. Smoking packs per day: 1 Smoking cigarettes per day: 20.0 Years smoked: 44 Smoking pack-years: 44.00 Smoking status: Former smoker Tobacco type: cigarettes Second hand tobacco smoke exposure: No Additional smoking assessment comments: Patient reports being down to about 2 cigarettes a day. Alcohol intake: former Substance use: current Substance use type: marijuana and prescription drug Last use: 12/15/2021 Lack of Transportation: No Lack of Food: Never True Current Housing: I Have Housing Concerned About Future Housing: No Difficulty Paying Gas/Electric Bills: No Difficulty Paying for Meds: No Currently Unemployed: No Education: High School Diploma/GED Difficulty w/ Childcare or Family Care: No Living arrangements: with friend(s) Additional living arrangements comments: The patient lives in [place]. Friend is staying with her currently. 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 Spiritual care concerns: No Comments At time as signature, I have reviewed and agree with nursing past medical, social, surgical and family history. Please see nursing chart for fu
--- NOTE | 2023-05-31 12:08 | PC.NURSE ---
HOT WALKER notified of elevated diastolic BP. HOT WALKER will order new dose of carvedilol.
[2023-05-31] MEDS: carvediloL 3.125 MG TABLET PO (12:31)
[2023-05-31 14:40] LABS: Appearance Urine Clear (Clear); Bilirubin Urine Negative (Negative); Blood Urine Negative (Negative); Color Urine Light Yellow (Yellow); Glucose Urine UA 3+ (Negative); Ketones Urine Negative (Negative); Leukocyte Esterase Ur Negative LEU/UL (Negative); Nitrate Urine Negative (Negative); Protein Urine Negative (Negative)
[2023-05-31 14:43] LABS: Add Urine Microscopic? YES; Bacteria Urine Trace /hpf; RBC Urine None seen /hpf (0-2); Squamous Epithelial Cell Urine Few /hpf (Few); WBC Urine None seen /hpf (0-3)
[2023-05-31] MEDS: BENZONATATE 100 MG CAPSULE PO (20:39)
[2023-05-31] MEDS: rOPINIRole HCL 0.25 MG TABLET 0.125 MG PO (20:39)
[2023-05-31] MEDS: carvediloL 6.25 MG TABLET BY MOUTH (20:39)
[2023-05-31 20:51] LABS: Glucose Point of Care 130 mg/dl (65-105)
[2023-06-01] VITALS (7 sets, daily range): BP systolic 102–149; BP diastolic 78–98; PULSE 75–86; RESP 16–20; TEMP 36.4–36.7; O2SAT 92–98
[2023-06-01] MEDS: IPRATROPIUM 0.5 MG/ALBUTEROL SULFATE 2.5 MG AMPUL.NEB 3 ML INHALATION (05:01)
[2023-06-01 05:33] LABS: Hematocrit 42.1 % (35.0-49.0); Hemoglobin 13.7 g/dL (12.0-15.0); Immature Platelet Fraction Pct 4.9 % (1.0-7.0); Mean Corpuscular HGB Conc 32.5 g/dL (32.0-36.0); Mean Corpuscular Hemoglobin 30.6 pg (27.0-31.0); Mean Corpuscular Volume 94.2 fL (78.0-102.0); Mean Platelet Volume 11.2 fl (9.2-11.8); Platelet Count Result 134 K/mm3 (150-420); Red Blood Count 4.47 M/mm3 (4.20-5.40); Red Cell Distribution Width 15.3 % (11.6-14.4); White Blood Count 4.7 K/mm3 (4.8-10.8)
[2023-06-01 05:42] LABS: Anion Gap 8 mmol/L (8-16); Blood Urea Nitrogen 23 mg/dL (7-18); Calcium 8.9 mg/dL (8.5-10.1); Carbon Dioxide 28 mmol/L (21-32); Chloride 104 mmol/L (98-108); Estimated CRCL calculation 44 ml/min; Estimated Glomerular Filt Rate 43; Glucose 107 mg/dL (70-99); Osmolality Calculated 293 mOsm/kg (285-295); Potassium 3.7 mmol/L (3.5-5.1); Sodium 140 mmol/L (136-145)
[2023-06-01 07:26] LABS: Glucose Point of Care 98 mg/dl (65-105)
[2023-06-01] MEDS: ENOXAPARIN 40 MG/0.4 ML SYRINGE SUB-Q (08:06)
[2023-06-01] MEDS: FUROSEMIDE INJ 20 MG/2 ML VIAL IV PUSH (08:07)
[2023-06-01] MEDS: EMPAGLIFLOZIN 25 MG TABLET BY MOUTH (08:11)
[2023-06-01] MEDS: SACUBITRIL/VALSARTAN 24-26 MG TABLET 1 TAB PO (08:12)
[2023-06-01] MEDS: carvediloL 6.25 MG TABLET BY MOUTH (08:12)
[2023-06-01] MEDS: SPIRONOLACTONE 25 MG TABLET BY MOUTH (08:13)
[2023-06-01] MEDS: BENZONATATE 100 MG CAPSULE PO (08:28)
[2023-06-01 09:28] LABS: NT Pro B Type Natriuretic Pept 7746 pg/mL (0-125)
--- NOTE | 2023-06-01 09:28 | PM.DS ---
DS: Admitting Diagnosis Discharge Date 06/01/2023 Admitting Diagnosis congestive heart failure, Pneumonia, Copd , Cardiomyopathy DS: Discharge Diagnosis Discharge Diagnosis (1) Pneumonia: Qualifiers: Laterality: right Pneumonia type: due to unspecified organism Code(s): J18.9 - Pneumonia, unspecified organism Status: Acute Assessment and Plan: IV Rocephin Nebulizer treatments oral azithomycin Inhalers (2) Hypertension: Code(s): I10 - Essential (primary) hypertension Status: Acute Assessment and Plan: continue blood pressure and adjust accordingly Pacemaker and defibillator (3) Polysubstance abuse: Code(s): F19.10 - Other psychoactive substance abuse, uncomplicated Status: Acute (4) Chronic obstructive pulmonary disease: Code(s): J44.9 - Chronic obstructive pulmonary disease, unspecified Status: Acute (5) Cardiomyopathy: Code(s): I42.9 - Cardiomyopathy, unspecified Status: Acute Assessment and Plan: Pacermaker defibillator oral lasix BB, Calcium channel nika , (6) Dyspnea: Qualifiers: Dyspnea type: unspecified Qualified Code(s): R06.00 - Dyspnea, unspecified Code(s): R06.00 - Dyspnea, unspecified Status: Acute Assessment and Plan: Oxygen as needed Nebulizer treatment (7) Acute exacerbation of CHF (congestive heart failure): Qualifiers: Heart failure type: combined systolic and diastolic Qualified Code(s): I50.43 - Acute on chronic combined systolic (congestive) and diastolic (congestive) heart failure Code(s): I50.9 - Heart failure, unspecified Status: Acute Assessment and Plan: IV Lasix daily weight intake and output oral lasix, CCB, Sartan, BB (8) Nonadherence to medication: Code(s): Z91.14 - Patient's other noncompliance with medication regimen Status: Acute Assessment and Plan: Education on patient medication It would benefit patient to get medication all from one pharmacy (9) CHF exacerbation: Code(s): I50.9 - Heart failure, unspecified Status: Acute (10) Hyperkalemia: Code(s): E87.5 - Hyperkalemia Status: Acute (11) Combined systolic and diastolic cardiac dysfunction: Code(s): I51.89 - Other ill-defined heart diseases Status: Acute DS: Summary Hospital Course Reason for hospitalization: Congestive heart failure, cardiomyopathy, malaise Hospital Course: This is 51-year-old that was admitted with congestive heart failure with EF of 10-15% with severe cardiomyopathy who was BMP was originally 17,000 was treated with IV Lasix currently by BNP 7700. Patient is feeling a lot better not required any oxygen states that she is ready to go home. Long discussion has been had with patient if she has acute kidney injury as well about her risk patient currently has a defibrillator that was placed in 2021 she continues to smoke marijuana and cigarettes patient's vitals are stable. BP 102/78 heart rate 82 respirations 16 temp 97.6? 98% on room air. Potassium 3.7, sodium 140, BUN 23, creatinine 1.29, WBCs 4.7, hemoglobin 13.7, hematocrit is 42.1%. Patient given labs have drawn as outpatient and to follow up with her primary care provider patient denies any question and knowledge is all understanding will be discharged at this patient has shown great improvement. Time Spent with Patient Time attestation: Total time spent providing and/or coordinating discharge services: Exam Narrative: GENERAL Ill -appearing,Dishevelled, and in no acute distress. HEAD:Normocephalic, atraumatic. EYES: PERRLA and EOMI. ENT: Nares clear, no rhinorrhea or epistaxis. Mucous membranes moist. CHEST: Clear to diminished lower lobe auscultation. No respiratory distress. HEART: irregular Regular rate and rhythm. Normal peripheral pulses. ABDOMEN: Soft, nontender, non
[2023-06-01] MEDS: guaiFENesin/CODEINE 100/10 MG 5 ML SYRUP PO (10:12)
[2023-06-01 11:40] LABS: Glucose Point of Care 108 mg/dl (65-105)
--- NOTE | 2023-06-01 12:40 | PC.NURSE ---
Discharge instructions given to patient and her mother. Both voiced understanding. Special emphasis given to patient getting her medication schedule straightened out, and getting her medications from one pharmacy. Patient voiced understanding. Follow up appointment made and patient made aware of date and time. Patient left unit in w/c accompanied by show card writer and patient's mother. Patient left hospital grounds in privately owned vehicle.
--- NOTE | 2023-06-01 13:45 | PCCCNOTE ---
Late entry Care Coordination Note for 06/01/23: Met with Christine at bedside this morning and she states she felt better and was agreeable to discharge home today. She denied any discharge needs. She did request explaination of medications she was to continue at home and Monique Chacon RN reviewed meds in detail with her and gave written list to Christine and wrote time and date she last rec'd each medication. Encouraged Christine to have all her medication filled from same pharmacy by [employer] and RN.
--- NOTE | 2023-06-09 15:36 | PC.NURSE ---
Unable to contact for discharge call back.
== END 2023-06-01 12:40 | disposition home or self-care (01) ==
LOC: CHSED 05-31 01:45 → CHS2ND 05-31 02:12
PROVIDERS: Nurse Practitioner Family; Admitting Provider Internal Medicine; Emergency Provider Emergency Medicine; PCP Nurse Practitioner Family; Visit Provider Internal Medicine
DX: I11.0 Hypertensive heart disease with heart failure (principal); I50.43 Acute on chronic combined systolic (congestive) and diastolic (congestive) heart failure; I42.9 Cardiomyopathy, unspecified; J18.9 Pneumonia, unspecified organism; J44.0 Chronic obstructive pulmonary disease with (acute) lower respiratory infection; K74.60 Unspecified cirrhosis of liver; K21.9 Gastro-esophageal reflux disease without esophagitis; F41.9 Anxiety disorder, unspecified; F19.10 Other psychoactive substance abuse, uncomplicated; Z86.010 Personal history of colon polyps; Z95.810 Presence of automatic (implantable) cardiac defibrillator; Z87.11 Personal history of peptic ulcer disease; Z87.891 Personal history of nicotine dependence
CPT/HCPCS: 36415; 71045; 71275; 74177; 80048; 80053; 81001; 82948; 83605; 83690; 83735; 83880; 84484; 85025; 85027; 85055; 85380; 85610; 85730; 87040; 93005; 94640; 96365; 96367; 96372; 96375; 96376; 99285; A9270; G0378; G0379; J0696; J1650; J1940; J3475; Q9967

== ENCOUNTER 2023-10-19 05:58 | Emergency (ER) | payer OTHER, SELFPAY ==
[2023-10-19] VITALS (10 sets, daily range): BP systolic 115–130; BP diastolic 87–107; PULSE 101–111; RESP 17–37; TEMP 36.7–37.2; O2SAT 87–100
--- NOTE | ~2023-10-19 | XR_ITS ---
Clinical Indication: Chest pain PA and lateral views of the chest: Comparison: 05/30/2023 Findings: The lungs are clear, without evidence of focal consolidation or pleural effusion. Cardiome diastinal silhouette is stable, with pacemaker device. Bones and soft tissues are unremarkable. Impression: Clear lungs. Stable cardiomegaly, with pacemaker device. Reviewed, dictated and finalized at location M. BPM ARCHITECT Impression: Clear lungs. Stable cardiomegaly, with pacemaker device.
--- NOTE | 2023-10-19 06:11 | ED.GENADULT ---
HPI - General Adult General Chief complaint: Upper Respiratory Infection <Lamont Mendez MD - Last Filed: 10/20/23 11:46> Stated complaint: cough, SOB <Lamont Mendez MD - Last Filed: 10/20/23 11:46> Source: patient <Lamont Mendez MD - Last Filed: 10/20/23 11:46> Mode of arrival: ambulatory <Lamont Mendez MD - Last Filed: 10/20/23 11:46> History of Present Illness HPI narrative: 53 yo F with CHF, COPD, cirrhosis of the liver, presents to ED due to dry cough of several days duration, a/w shortness of breath, chest hurts when she coughs. No other complaints. <Lamont Mendez MD - Last Filed: 10/20/23 11:46> Related Data Home medications: Home Medications Medication Instructions Recorded Confirmed dapagliflozin propanediol 10 mg 10 mg PO DAILY 06/15/23 10/19/23 tablet (Farxiga) cholecalciferol (vitamin D3) 1,250 1,250 mcg PO WEEKLY 10/19/23 10/19/23 mcg (50,000 unit) capsule (Weekly-D) spironolactone 25 mg tablet 25 mg PO DAILY 10/19/23 10/19/23 (Aldactone) <Lamont Mendez MD - Last Filed: 10/20/23 11:46> Allergies/adverse reactions: Allergies Allergy/AdvReac Type Severity Reaction Status Date / Time codeine Allergy Hives Verified 10/19/23 06:15 <Lamont Mendez MD - Last Filed: 10/20/23 11:46> Review of Systems Review of Systems: All systems reviewed & are unremarkable except as noted in HPI and below <Lamont Mendez MD - Last Filed: 10/20/23 11:46> [facility] Past Medical History Medical History: Medical History Anxiety Cardiomyopathy Echocardiogram on 08/14/2021 showed a severely enlarged left ventricular chamber with reduced ejection fraction of 15 to 20%. Chronic obstructive pulmonary disease Combined systolic and diastolic cardiac dysfunction Echocardiogram on 08/14/2021 showed a severely reduced ejection fraction of 15 to 20% as well as diastolic dysfunction. Gastroesophageal reflux disease Hypertension Peptic ulcer disease Polysubstance abuse <Lamont Mendez MD - Last Filed: 10/20/23 11:46> Surgical History Surgical History: Surgical History History of colonoscopy with polypectomy History of hysterectomy History of tubal ligation <Lamont Mendez MD - Last Filed: 10/20/23 11:46> Family History Family History: Family History Father Acute myocardial infarction Mother Cerebrovascular accident Other No problems noted. Sibling Cancer <Lamont Mendez MD - Last Filed: 10/20/23 11:46> Social History Social History: Social History Social History: Surrogate decision maker: Code status: Full code. Smoking packs per day: 1 Smoking cigarettes per day: 20.0 Years smoked: 44 Smoking pack-years: 44.00 Smoking status: Former smoker Tobacco type: cigarettes Second hand tobacco smoke exposure: No Additional smoking assessment comments: Patient reports being down to about 2 cigarettes a day. Alcohol intake: former Substance use: current Substance use type: marijuana and prescription drug Last use: 12/15/2021 Lack of Transportation: No Lack of Food: Never True Current Housing: I Have Housing Concerned About Future Housing: No Difficulty Paying Gas/Electric Bills: No Difficulty Paying for Meds: No Currently Unemployed: No Education: High School Diploma/GED Difficulty w/ Childcare or Family Care: No Living arrangements: with friend(s) Additional living arrangements comments: The patient lives in [place]. Friend is staying with her currently. 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 Spiritual care concerns: No <Lamont Mendez MD - Last Filed: 10/20/23 11:46> Exam Const: General: alert and ill appearing <Lamont Mendez MD - Last Filed: 10/20/23 11
[2023-10-19] MEDS: LEVALBUTEROL NEB 1.25 MG/3 ML INHALATION (06:35)
[2023-10-19] MEDS: IPRATROPIUM BR 0.02% INH SOLN 0.5 MG/2.5 ML VIAL INHALATION (06:35)
[2023-10-19 06:39] LABS: Basophils Absolute Auto 0.04 K/mm3 (0.00-0.10); Basophils Percent Auto 0.7 % (0.0-1.0); Eosinophils Absolute Auto 0.07 K/mm3 (0.02-0.50); Eosinophils Percent Auto 1.2 % (1.0-6.0); Hemoglobin 12.5 g/dL (12.0-15.0); Immature Granulocyte Absolute 0.02 K/mm3 (0.00-0.00); Immature Granulocyte Percent A 0.3 % (0.0-0.0); Lymphocytes Absolute Auto 0.58 K/mm3 (1.10-4.50); Lymphocytes Percent Auto 9.8 % (18.0-42.0); Mean Corpuscular HGB Conc 32.9 g/dL (32.0-36.0); Mean Corpuscular Hemoglobin 31.7 pg (27.0-31.0); Mean Corpuscular Volume 96.4 fL (78.0-102.0); Mean Platelet Volume 11.9 fl (9.2-11.8); Monocytes Absolute Auto 0.38 K/mm3 (0.10-0.90); Monocytes Percent Auto 6.4 % (2.0-11.0); Neutrophils Absolute Auto 4.8 K/mm3 (1.7-7.2); Neutrophils Percent Auto 81.6 % (50.0-70.0); Platelet Count Result 109 K/mm3 (150-420); Red Blood Count 3.94 M/mm3 (4.20-5.40); Red Cell Distribution Width 15.3 % (11.6-14.4); White Blood Count 5.9 K/mm3 (4.8-10.8)
[2023-10-19 07:00] LABS: Alanine Aminotransferase 27 U/L (14-59); Albumin Level 3.3 g/dL (3.4-5.0); Alkaline Phosphatase 81 U/L (46-116); Anion Gap 10 mmol/L (8-16); Aspartate Amino Transferase 23 U/L (15-37); Bilirubin,Total 1.6 mg/dL (0.00-1.00); Blood Urea Nitrogen 17 mg/dL (7-18); Calcium 8.6 mg/dL (8.5-10.1); Carbon Dioxide 25 mmol/L (21-32); Chloride 103 mmol/L (98-108); Estimated CRCL calculation 41 ml/min; Estimated Glomerular Filt Rate 40; Glucose 137 mg/dL (70-99); NT Pro B Type Natriuretic Pept 11138 pg/mL (0-125); Osmolality Calculated 289 mOsm/kg (285-295); Potassium 3.9 mmol/L (3.5-5.1); Sodium 138 mmol/L (136-145)
[2023-10-19 07:11] LABS: Influenza A QL RT-PCR Negative (Negative); Influenza B QL RT-PCR Negative (Negative); SARS-CoV-2 RNA PCR Negative (Negative)
[2023-10-19 07:12] LABS: RSV RNA, RT-PCR Negative (Negative)
[2023-10-19] MEDS: SPIRONOLACTONE 25 MG TABLET PO (07:45)
[2023-10-19] MEDS: FUROSEMIDE 40 MG TABLET PO (07:45)
== END 2023-10-19 07:47 | disposition home or self-care (01) ==
PROVIDERS: Emergency Provider Emergency Medicine; PCP Nurse Practitioner Family
DX: J20.9 Acute bronchitis, unspecified (principal); I11.0 Hypertensive heart disease with heart failure; I50.23 Acute on chronic systolic (congestive) heart failure; J44.9 Chronic obstructive pulmonary disease, unspecified; Z87.891 Personal history of nicotine dependence
CPT/HCPCS: 36415; 71046; 80053; 83880; 85025; 85055; 87637; 94640; 99283; A9270

== ENCOUNTER 2023-12-29 09:00 | Inpatient (IN) | payer OTHER, SELFPAY ==
[2023-12-29] VITALS (43 sets, daily range): BP systolic 99–144; BP diastolic 65–104; PULSE 75–112; RESP 12–40; TEMP 35.7–36.6; O2SAT 73–100; BMI 28.0
--- NOTE | ~2023-12-29 | US_ITS ---
EXAMINATION: US right upper quadrant DATE: 12/29/2023 13:43 INDICATION: Right upper quadrant abdominal pain. TECHNIQUE: Multiple grayscale and Doppler ultrasound images of the abdomen were obtained. COMPARISON: CT abdomen and pelvis 05/30/2023, chest CT 12/29/2023 FINDINGS: The visualized portions of the head and body of the pancreas are normal. The liver demonstr ates surface nodularity, consistent with cirrhosis. There is normal flow in main portal vein. The gal lbladder is normal in size. No gallstones. Gallbladder wall thickening is noted, likely secondary to chronic liver disease. There is no sonographic Cameron sign. The common duct is normal and measures 4 mm. IMPRESSION: 1. Cirrhosis of the liver. Reviewed, dictated and finalized at location A. [employer] IMPRESSION: 1. Cirrhosis of the liver.
--- NOTE | ~2023-12-29 | CT_ITS ---
EXAMINATION: CTA chest PE protocol DATE: 12/29/2023 10:19 INDICATION: Dyspnea, cough, chest pain TECHNIQUE: Computed tomography angiography (CTA) of the chest was performed with 100 mL Omnipaque-350 intravenous contrast timed to evaluate the pulmonary arteries. Coronal maximum intensity projection 3D-reconstructions were created by the technologist. Automated exposure control and iterative reconst ruction technique were employed. Exam dose: 394.89 mGy-cm total exam DLP. COMPARISON: December 29, 2023 PA and lateral chest 05/30/2023 CTA chest abdomen pelvis FINDINGS: There is diagnostic contrast enhancement of the pulmonary arteries and no evidence of pulmo nary embolism. No thoracic aortic aneurysm. Prominent cardiomegaly. Coronary artery calcifications. Left-sided transvenous pacemaker device with leads in the right atrium and right ventricle. No pericardial or pleural effusion. Mild discoid atelectasis or scarring involving primarily the lingula and left lower lobe. No pulmonar y consolidation or suspicious pulmonary mass lesion is noted. Splenomegaly. Surface nodularity of the liver is suggested, raising suggestion of possible cirrhosis. There is possible pericholecystic fluid or gallbladder wall thickening. This examination is limited f or evaluation of the gallbladder. If further evaluation is required, consider gallbladder ultrasound. Degenerative disc disease in the lower cervical spine. Degenerative spurring and levoscoliosis of the thoracic spine. Bilateral glenohumeral osteoarthritis. No suspicious osteolytic or osteoblastic lesions. IMPRESSION: No evidence of pulmonary embolism Prominent cardiomegaly Left transvenous pacemaker device with leads in right atrium and right ventricle Surface nodularity of liver and splenomegaly suggest cirrhosis; clinical correlation is advised Pericholecystic fluid or gallbladder wall thickening; if further evaluation of the gallbladder is ind icated, gallbladder ultrasound would be more definitive Reviewed, dictated and finalized at [facility]. Reviewed, dictated and finalized at location B. [employer] IMPRESSION: No evidence of pulmonary embolism Prominent cardiomegaly Left transvenous pacemaker device with leads in right atrium and right ventricl e Surface nodularity of liver and splenomegaly suggest cirrhosis; clinical correl ation is advised Pericholecystic fluid or gallbladder wall thickening; if further evaluation of the gallbladder is indicated, gallbladder ultrasound would be more definitive
--- NOTE | ~2023-12-29 | XR_ITS ---
EXAMINATION: XR chest 2V DATE: 12/29/2023 10:03 INDICATION: Intermittent chest pain. Shortness of breath. TECHNIQUE: Frontal and lateral views of the chest were obtained. COMPARISON: Chest 2 views 10/19/2023 FINDINGS: There is no pneumonia, pleural effusion, or pneumothorax. Cardiomegaly is noted. There is a left chest wall pacer with leads in the right atrium and right ventricle. IMPRESSION: 1. Cardiomegaly. Reviewed, dictated and finalized at location A. LVERIZER IMPRESSION: 1. Cardiomegaly.
--- NOTE | 2023-12-29 09:13 | ECG_ITS ---
Measurements Intervals [place] Rate: 96 P: 61 CA: 191 QRS: -65 QRSD: 122 T: 112 QT: 395 QTc: 502 Interpretive Statements SINUS RHYTHM LEFT ATRIAL ENLARGEMENT [-0.15mV P-WAVE IN V1/V2] LEFT AXIS DEVIATION [QRS AXIS < -30] MODERATE INTRAVENTRICULAR CONDUCTION DELAY [105+ ms QRS DURATION, 80+ ms Q/S IN V1/V2, NO Q AND 60+ ms R IN I/aVL/V5/V6] MODERATE T-WAVE ABNORMALITY, CONSIDER LATERAL ISCHEMIA [-0.1+ mV T-WAVE IN I/aVL/V5/V6] ABNORMAL ECG COMPARED TO ECG 05/30/2023 21:24:56 SINUS RHYTHM NOW PRESENT LEFT-AXIS DEVIATION NOW PRESENT INTRAVENTRICULAR CONDUCTION DELAY NOW PRESENT Electronically Signed On 12-29-2023 11:53:23 DIGITAL PROJECT MANAGER by Josep Haley M.D.
[2023-12-29 09:53] LABS: Basophils Absolute Auto 0.1 K/mm3 (0.0-0.1); Basophils Percent Auto 0.9 % (0.2-1.2); Eosinophils Percent Auto 0.5 % (0-4.4); Hemoglobin 14.3 g/dL (12.0-15.0); Immature Granulocyte Absolute 0.02 K/mm3 (0.00-0.031); Immature Granulocyte Percent A 0.3 % (0-0.5); Lymphocytes Absolute Auto 0.86 K/mm3 (0.9-3.2); Lymphocytes Percent Auto 14.9 % (18.3-44.2); Mean Corpuscular HGB Conc 33.3 g/dl (32-36); Mean Corpuscular Hemoglobin 31.4 pg (26-34); Mean Corpuscular Volume 94.5 fl (80-100); Mean Platelet Volume 12.2 fl (7.4-10.4); Monocytes Absolute Auto 0.4 K/mm3 (0.1-0.6); Monocytes Percent Auto 7.3 % (2.6-8.5); Neutrophils Absolute Auto 4.4 K/mm3 (1.3-6.7); Neutrophils Percent Auto 76.1 % (45.5-73.1); Platelet Count Result 112 k/mm3 (150-375); Red Blood Count 4.55 M/mm3 (4.2-5.4); Red Cell Distribution Width 15.2 % (11.5-14.5); White Blood Count 5.8 K/mm3 (4.5-10.0)
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
[2023-12-29 10:03] LABS: Alanine Aminotransferase 50 U/L (6-35); Albumin Level 3.6 g/dL (3.5-5.1); Alkaline Phosphatase 73 U/L (38-126); Anion Gap 9 mmol/L (8-16); Aspartate Amino Transferase 49 U/L (14-36); Bilirubin,Total 1.4 mg/dL (0.2-1.3); Blood Urea Nitrogen 29 mg/dL (7-17); Carbon Dioxide 20 mmol/L (22-30); Chloride 110 mmol/L (98-107); Estimated CRCL calculation 45 ml/min; Estimated Glomerular Filt Rate 47; Glucose 128 mg/dL (65-110); Potassium 3.4 mmol/L (3.4-5.0); Sodium 139 mmol/L (137-145)
[2023-12-29 10:12] LABS: Lipase 92 U/L (23-300)
[2023-12-29 10:13] LABS: NT Pro B Type Natriuretic Pept 15000 pg/mL (19.9-100)
[2023-12-29 10:20] LABS: INR 1.3; Prothrombin Time 16.3 Seconds (11.1-14.7)
[2023-12-29 10:21] LABS: Partial Thromboplastin Time 29.5 SECONDS (22.3-36.8)
[2023-12-29 10:28] LABS: Troponin I 0.062 ng/mL (0.000-0.034)
[2023-12-29 10:29] LABS: Influenza A QL RT-PCR Negative (Negative); Influenza B QL RT-PCR Negative (Negative); RSV RNA, RT-PCR Negative (Negative); SARS-CoV-2 RNA PCR Negative (Negative)
[2023-12-29] MEDS: ALBUTEROL SULFATE NEB 2.5 MG/3 ML INH INHALATION (10:40)
[2023-12-29] MEDS: IPRATROPIUM 0.5 MG/ALBUTEROL SULFATE 2.5 MG AMPUL.NEB 3 ML INHALATION (10:40)
--- NOTE | 2023-12-29 10:46 | PCRCNOTE ---
Patient was taken to XRAY. Peña Luciano. began @[id number]
[2023-12-29 11:08] LABS: Alveolar/Arterial O2 Gradient 10.1 mmHg; Base Excess ABG -4.7 mEq/l (+/-2.0); Fractional Inspired Oxygen 21 %; HCO3 ABG 16.9 mEq/l (22.0-26.0); Oxygen Content ABG 19.5 %vol (16.0-22.0); Oxygen Saturation ABG 98.4 % (95.0-100.0); Oxyhemoglobin 96.5 % THb (90.0-100.0); PO2 ABG 111.5 mmHg (80.0-100.0); PO2 FiO2 Ratio Arterial Blood 5.31 %; Total Hemoglobin 14.3 g/dL (12.0-18.0); pH ABG 7.474 (7.350-7.450)
[2023-12-29 11:10] LABS: Device ROOM AIR; Modified Allen's Test Pass; PCO2 ABG 23.5 mmHg (35.0-45.0); Site Drawn RIGHT RADIAL
[2023-12-29] MEDS: FUROSEMIDE INJ 40 MG/4 ML VIAL IV PUSH (11:33)
[2023-12-29] MEDS: methylPREDNISolone SOD SUCC 125 MG VIAL IV PUSH (11:34)
[2023-12-29] MEDS: LORazepam INJ (*CRX) 2 MG/ML VIAL 0.5 MG IV PUSH (11:34)
[2023-12-29] MEDS: ASPIRIN 81 MG CHEWABLE TABLET 324 MG PO (11:34)
--- NOTE | 2023-12-29 12:58 | ECG_ITS ---
Measurements Intervals [place] Rate: 89 P: 46 AR: 184 QRS: -30 QRSD: 122 T: 108 QT: 390 QTc: 476 Interpretive Statements SINUS RHYTHM LEFT ATRIAL ENLARGEMENT [-0.15mV P-WAVE IN V1/V2] BORDERLINE LEFT AXIS DEVIATION [QRS AXIS < -20] MODERATE INTRAVENTRICULAR CONDUCTION DELAY [110+ ms QRS DURATION] ST DEVIATION AND MODERATE T-WAVE ABNORMALITY, CONSIDER LATERAL ISCHEMIA [-0.1+ mV T- WAVE IN I/aVL/V5/V6] ABNORMAL ECG COMPARED TO ECG 12/29/2023 09:18:14 NO SIGNIFICANT CHANGES Electronically Signed On 12-29-2023 13:20:22 LICENSING DIRECTOR by Josep Haley M.D.
[2023-12-29 12:59] LABS: Appearance Urine Clear (Clear); Bilirubin Urine Negative (Negative); Blood Urine Negative (Negative); Color Urine Yellow (Yellow); Glucose Urine UA Negative (Negative); Ketones Urine Negative (Negative); Leukocyte Esterase Ur Negative LEU/UL (Negative); Nitrate Urine Negative (Negative); Protein Urine Negative (Negative); Specific Grav Ur 1.009 (1.001-1.035); Urobilinogen Urine 0.2 mg/dL (<2.0); pH Urine 5.5 (5.0-9.0)
[2023-12-29 13:05] LABS: Add Urine Microscopic? NO
[2023-12-29 13:24] LABS: Troponin I 0.051 ng/mL (0.000-0.034)
[2023-12-29 14:48] LABS: Amphetamine Screen Urine Negative (Negative); Barbiturate Screen Urine Negative (Negative); Benzodiazepines Screen Urine Negative (Negative); Cannabinoid Screen Urine Negative (Negative); Cocaine Screen Urine Negative (Negative); Methadone Screen Urine Negative (Negative); Opiate Screen Urine Negative (Negative); Phencyclidine Screen Urine Negative (Negative)
--- NOTE | 2023-12-29 16:34 | ADMGEN ---
This patient, Christine Montes, was admitted to Medical Room 251-. Patient/family oriented to hospital policies and general routines including ID bracelet, bed and alarms, visiting hours, pain management, procedures, bathroom and other care routines, personal items, smoking policy, room service/diet, and visiting hours. Information on how to activate the Rapid Response Team has been discussed. Patient/Family are encouraged to report perceived risks to care and to ask questions if they do not understand what they are told or what they should do.
[2023-12-29 17:23] LABS: Troponin I 0.045 ng/mL (0.000-0.034)
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
[2023-12-29] MEDS: rOPINIRole HCL 1 MG TABLET PO (21:35)
[2023-12-29] MEDS: SACUBITRIL/VALSARTAN 24-26 MG TABLET 1 TAB PO (21:35)
[2023-12-29] MEDS: AZITHROMYCIN 500 MG/NS 250 ML 500 MG/250 ML BAG 250 MG IVPB (22:42)
--- NOTE | 2023-12-29 23:47 | ECG_ITS ---
Measurements Intervals [place]ard Rate: 110 P: 31 OK: 177 QRS: -52 QRSD: 114 T: 44 QT: 438 QTc: 595 Interpretive Statements SINUS TACHYCARDIA RIGHT ATRIAL ENLARGEMENT [0.3mV P WAVE] LEFT ATRIAL ENLARGEMENT [-0.15mV P WAVE IN V1/V2] MARKED LEFT AXIS DEVIATION [QRS AXIS < -30] MODERATE INTRAVENTRICULAR CONDUCTION DELAY [110+ ms QRS DURATION] ST DEVIATION AND MARKED T-WAVE ABNORMALITY, CONSIDER LATERAL ISCHEMIA [-0.5+ mV T WAVE IN I/aVL/V5/V6] COMPARED TO ECG 12/29/2023 13:01:46 SINUS TACHYCARDIA NOW PRESENT Electronically Signed On 12-30-2023 12:38:51 INSPECTOR REPAIRER by Yaya Mariano M.D.
[2023-12-30] VITALS (22 sets, daily range): BP systolic 90–110; BP diastolic 59–82; PULSE 78–111; RESP 16–21; TEMP 36.1–36.7; O2SAT 89–99
[2023-12-30] MEDS: BELLADONNA ALK/PHENOB ELIX 10 ML, MAG HYDROX/ALUMINUM HYD/SIMETH 30 ML, LIDOCAINE HCL 2... PO (00:13)
[2023-12-30] MEDS: IPRATROPIUM BR 0.02% INH SOLN 0.5 MG/2.5 ML VIAL INHALATION ×4 (02:30→20:09)
[2023-12-30] MEDS: ALBUTEROL SULFATE NEB 2.5 MG/3 ML INH 5 MG INHALATION ×4 (02:30→20:09)
[2023-12-30 05:26] LABS: Alanine Aminotransferase 41 U/L (6-35); Alkaline Phosphatase 68 U/L (38-126); Anion Gap 6 mmol/L (8-16); Aspartate Amino Transferase 39 U/L (14-36); Blood Urea Nitrogen 27 mg/dL (7-17); Calcium 8.3 mg/dL (8.4-10.2); Carbon Dioxide 23 mmol/L (22-30); Chloride 107 mmol/L (98-107); Estimated CRCL calculation 44 ml/min; Estimated Glomerular Filt Rate 43; Glucose 121 mg/dL (65-110); Sodium 136 mmol/L (137-145)
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
[2023-12-30 10:13] LABS: NT Pro B Type Natriuretic Pept 10800 pg/mL (19.9-100)
[2023-12-30] MEDS: ASPIRIN 81 MG ENTERIC TABLET PO (10:34)
[2023-12-30] MEDS: SPIRONOLACTONE 25 MG TABLET PO (10:34)
[2023-12-30] MEDS: SACUBITRIL/VALSARTAN 24-26 MG TABLET 1 TAB PO ×2 (10:34→17:29)
[2023-12-30] MEDS: EMPAGLIFLOZIN 25 MG TABLET PO (10:34)
[2023-12-30] MEDS: FUROSEMIDE INJ 40 MG/4 ML VIAL IV PUSH ×2 (10:35→17:30)
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
[2023-12-30 17:05] LABS: Glucose Point of Care 101 mg/dl (65-105)
[2023-12-30 17:11] LABS: Basophils Percent Auto 0.4 % (0.2-1.2); Eosinophils Percent Auto 0.4 % (0-4.4); Hematocrit 40.3 % (37.0-47.0); Hemoglobin 12.9 g/dL (12.0-15.0); Immature Granulocyte Absolute 0.02 K/mm3 (0.00-0.031); Immature Granulocyte Percent A 0.3 % (0-0.5); Immature Platelet Fraction Pct 6.3 % (0.9-11.2); Lymphocytes Percent Auto 16.4 % (18.3-44.2); Mean Corpuscular Hemoglobin 29.5 pg (26-34); Mean Platelet Volume 11.8 fl (7.4-10.4); Monocytes Absolute Auto 0.6 K/mm3 (0.1-0.6); Monocytes Percent Auto 8.3 % (2.6-8.5); Neutrophils Absolute Auto 5.4 K/mm3 (1.3-6.7); Neutrophils Percent Auto 74.2 % (45.5-73.1); Platelet Count Result 109 k/mm3 (150-375); Red Blood Count 4.38 M/mm3 (4.2-5.4); White Blood Count 7.3 K/mm3 (4.5-10.0)
[2023-12-30] MEDS: AZITHROMYCIN 500 MG/NS 250 ML 500 MG/250 ML BAG 250 MG IVPB (20:51)
[2023-12-30] MEDS: rOPINIRole HCL 1 MG TABLET PO (20:54)
[2023-12-30] MEDS: methylPREDNISolone SOD SUCC 125 MG VIAL IV PUSH (20:57)
[2023-12-30] MEDS: ACETAMINOPHEN 325 MG TABLET 650 MG PO (22:26)
[2023-12-31] VITALS (29 sets, daily range): BP systolic 82–108; BP diastolic 52–72; PULSE 70–99; RESP 16–20; TEMP 36–36.8; O2SAT 91–100
[2023-12-31] MEDS: IPRATROPIUM BR 0.02% INH SOLN 0.5 MG/2.5 ML VIAL INHALATION ×4 (02:20→20:26)
[2023-12-31] MEDS: ALBUTEROL SULFATE NEB 2.5 MG/3 ML INH 5 MG INHALATION ×4 (02:20→20:26)
[2023-12-31] MEDS: methylPREDNISolone SOD SUCC 125 MG VIAL IV PUSH ×2 (05:14→13:13)
[2023-12-31] MEDS: SACUBITRIL/VALSARTAN 24-26 MG TABLET 1 TAB PO (08:36)
[2023-12-31] MEDS: FUROSEMIDE INJ 40 MG/4 ML VIAL IV PUSH (08:37)
[2023-12-31] MEDS: SPIRONOLACTONE 25 MG TABLET PO (08:37)
[2023-12-31] MEDS: METOPROLOL SUCCINATE EXT REL 25 MG TABCR PO (08:37)
[2023-12-31] MEDS: ASPIRIN 81 MG ENTERIC TABLET PO (08:37)
[2023-12-31] MEDS: PANTOPRAZOLE SODIUM IV 40 MG VIAL IV PUSH (08:37)
[2023-12-31] MEDS: EMPAGLIFLOZIN 25 MG TABLET PO (08:38)
[2023-12-31 09:36] LABS: Anion Gap 14 mmol/L (8-16); Blood Urea Nitrogen 31 mg/dL (7-17); Calcium 8.9 mg/dL (8.4-10.2); Carbon Dioxide 21 mmol/L (22-30); Chloride 102 mmol/L (98-107); Estimated CRCL calculation 43 ml/min; Estimated Glomerular Filt Rate 43; Glucose 182 mg/dL (65-110); Potassium 3.7 mmol/L (3.4-5.0); Sodium 137 mmol/L (137-145)
--- NOTE | 2023-12-31 09:43 | PM.PNCARD ---
Progress Note: A&P Assessment and Plan (1) Cardiomyopathy: Code(s): I42.9 - Cardiomyopathy, unspecified Status: Acute Assessment and Plan: Nonischemic cardiomyopathy, EF 15%. Continue GDMT with Entresto, spironolactone, Jardiance, ToprolXL Will up titrate Entresto dose to 49-51mg b.i.d. She has an ICD, obtaining records from [facility] so this can be interrogated. (2) Acute on chronic congestive heart failure: Code(s): I50.9 - Heart failure, unspecified Status: Acute Assessment and Plan: Secondary to medication noncompliance Improving Pulmonary exam much improved today. Will shift to p.o. furosemide today Daily weights Intake and output CHF counseling Daily BMP (3) Dyspnea: Qualifiers: Dyspnea type: unspecified Qualified Code(s): R06.00 - Dyspnea, unspecified Code(s): R06.00 - Dyspnea, unspecified Status: Acute Assessment and Plan: Secondary to CHF and COPD (4) ICD (implantable cardioverter-defibrillator) in place: Code(s): Z95.810 - Presence of automatic (implantable) cardiac defibrillator Status: Acute Assessment and Plan: Will have interrogated Subjective Date/time seen: 12/31/23 09:43 Interval history: Cardiology follow up for CHF Date of service 12/31/2023: Still feeling short of breath today. She feels better after breathing treatments. Chest pain with coughing. No other complaints. Review of Systems Review of Systems: All systems reviewed & are unremarkable except as noted in HPI and below Exam Const: General: comfortable, no acute distress, alert and awake Orientation/consciousness: patient oriented x3 HENMT: Head: normal to inspection Eyes: General: appearance normal, both eyes and all related structures Pupils: Equal, round and reactive pupils present Neck: Neck: normal visual inspection, supple and no JVD Carotids: normal carotid upstroke Resp: Effort & Inspection: normal respiratory effort Auscultation: clear to auscultation bilaterally and diminished lung sounds Cardio: Rate: regular rate Rhythm: regular rhythm Heart sounds: S1 normal heart sound present, S2 normal heart sound present and no murmurs GI: Auscultation: normal bowel sounds Skin: General skin exam: normal color Neuro: General: patient oriented x3 Cranial nerves: Yes Equal, round and reactive pupils present Extrem: General: normal to inspection Other: No edema Psych: Appearance: grossly normal Mental Status: mental status grossly normal Objective Data Vital Signs Vital Signs: Vital Signs - 24 hr 12/30/23 13:12 12/30/23 13:42 12/30/23 13:59 Temperature 36.7 C Pulse Rate 80 110 H 97 Respiratory Rate 16 20 20 Blood Pressure 110/59 L Pulse Oximetry 99 Oxygen Delivery Oxygen Flow Rate Fraction of Inspired Oxygen 12/30/23 10:30 12/30/23 17:23 12/30/23 12:00 Temperature Pulse Rate 100 91 Respiratory Rate Blood Pressure 101/68 Pulse Oximetry 99 99 Oxygen Delivery Nasal Cannula Oxygen Flow Rate 3 Fraction of Inspired Oxygen 12/30/23 16:00 12/30/23 19:32 12/30/23 20:10 Temperature 36.1 C L Pulse Rate 103 H 107 H 92 Respiratory Rate 20 20 Blood Pressure 102/76 Pulse Oximetry 97 Oxygen Delivery Oxygen Flow Rate Fraction of Inspired Oxygen 12/30/23 20:13 12/30/23 20:18 12/30/23 20:00 Temperature Pulse Rate 92 94 Respiratory Rate 20 Blood Pressure Pulse Oximetry 97 97 Oxygen Delivery Nasal Cannula Nasal Cannula Oxygen Flow Rate 3 2 Fraction of Inspired Oxygen 12/30/23 20:00 12/30/23 23:06 12/31/23 00:00 Temperature Pulse Rate 102 H 93 Respiratory Rate Blood Pressure Pulse Oximetry 97 Oxygen Delivery Nasal Cannula Oxygen Flow Rate 3 Fraction of Inspired Oxygen 12/31/23 04:00 12/31/23 02:20 12/31/23 02:30 Temperature Pulse Rate 70 91 89 Respiratory Rate 20 20 Blood Pressure P
--- NOTE | 2023-12-31 11:07 | HOMEO2EVAL ---
Evaluation was performed at [facility] Home Oxygen Evaluation RC: Home Oxygen (O2) Evaluation Start: 12/31/23 08:37 Freq: ONCE Status: Active Protocol: RPE Activity Type Activity Date Activity User E-sign Co-sign Detail Recorded Client Recorded Date Recorded By Document 12/31/23 09:30 DIOMEDES [id number] 12/31/23 11:07 DIOMEDES Document 12/31/23 09:40 DIOMEDES [email or web address] 12/31/23 11:07 DIOMEDES Document 12/31/23 09:45 DIOMEDES [email or web address] 12/31/23 11:07 DIOMEDES 12/31/23 12/31/23 12/31/23 09:30 09:40 09:45 Home O2 Evaluation [Oxygen] -Test Phase Resting Exercise Resting -Oxygen Delivery Room Air Room Air Room Air [Pulse Oximetry] -Pulse Oximetry (90-100 %) 94 92 96 [Pulse Rate] -Pulse Rate (60-100 beats/min) 84 99 85 [Comments] -Home Oxygen Evaluation Comments No home O2 needed. [Charges] -Evaluation Charges O2 Evaluation by Pulmonary
--- NOTE | 2023-12-31 11:13 | PM.IMPN ---
Progress Note: A&P Assessment and Plan (1) COPD (chronic obstructive pulmonary disease): Qualifiers: COPD type: unspecified COPD Qualified Code(s): J44.9 - Chronic obstructive pulmonary disease, unspecified Code(s): J44.9 - Chronic obstructive pulmonary disease, unspecified Status: Acute Assessment and Plan: Oxygen home evaluation revealed, patient does not need home O2 at this time Hx of COPD, CXR did not reveal any localizing pneumonia, suspect exacerbation -continue oxygen titration to keep SPO2 above 93% -DC azithromycin IV, switched to azithromycin p.o. 500 mg daily -DC methylprednisolone 125 IV, -restart prednisone 60 mg p.o. (2) Chronic respiratory failure, unspecified whether with hypoxia or hypercapnia: Code(s): J96.10 - Chronic respiratory failure, unspecified whether with hypoxia or hypercapnia Status: Acute Assessment and Plan: -continue oxygen titration therapy maintain SpO2 above 93% -check apnea link (3) Acute exacerbation of CHF (congestive heart failure): Qualifiers: Heart failure type: systolic Qualified Code(s): I50.23 - Acute on chronic systolic (congestive) heart failure Code(s): I50.9 - Heart failure, unspecified Status: Acute Assessment and Plan: -acute CHF exacerbation due to noncompliance with diuretic therapy.? Pulmonary exam has improved today per cardiology would like to shift p.o. furosemide -strict I&O -daily weights -Check electrolyte panel daily, daily BMP -continue home medications -plan to discharge in the a.m. (4) Nonadherence to medication: Code(s): Z91.14 - Patient's other noncompliance with medication regimen Status: Acute Assessment and Plan: -encourage compliance (5) CKD (chronic kidney disease) stage 3, GFR 30-59 ml/min: Qualifiers: Chronic kidney disease stage 3 subtype: stage 3a (GFR 45-59) Qualified Code(s): N18.31 - Chronic kidney disease, stage 3a Code(s): N18.30 - Chronic kidney disease, stage 3 unspecified Status: Acute (6) Elevated troponin: Code(s): R79.89 - Other specified abnormal findings of blood chemistry Status: Resolved (7) Transaminitis: Code(s): R74.01 - Elevation of levels of liver transaminase levels Status: Acute Assessment and Plan: transaminitis that is recurrent.? Likely due due to hepatic congestion from fluid status complicating the patient's baseline known alcoholic cirrhosis. -need to continue out-pt follow up (8) ICD (implantable cardioverter-defibrillator) in place: Code(s): Z95.810 - Presence of automatic (implantable) cardiac defibrillator Status: Acute Assessment and Plan: concern for 5 beat run of VTACH - she denies any shocks - will have device interrogated -continue telemetry monitoring Plan Continue home medications: VTE Prophylaxis: Heparin subQ DIET: Heart healthy Anticipated hospital stay: > 2 days Code Status: Full Subjective Date/time seen: 12/31/23 11:13 Interval history: Shortness of breath and cough Narrative: 53-year-old female with past medical history of polysubstance abuse, COPD, tobacco abuse and and severe nonischemic cardiomyopathy with EF of 10-15% status post pacemaker defibrillator placement in 2021 who presented to the ER with flu-like symptoms with cough and shortness of breath for 5 days (since Wednesday).? She reported chest discomfort due to coughing.? She has been coughing somewhat she has had multiple episodes of stress urinary incontinence and has been having wear depends.? She denies any dysuria, hematuria or foul smelly urine.? She does have a known history of cirrhosis but denies any increased abdominal distension or abdominal pain except for when she is coughing.? She has reproducible right lower quadrant abdominal pain when coughing or with palpation.? She denies any right upper quadrant abdominal pain.? She does have a
[2023-12-31] MEDS: HEPARIN SODIUM 5,000 UNITS/ML VIAL 5000 UNITS SUB-Q ×2 (14:44→20:18)
[2023-12-31] MEDS: SODIUM CHLORIDE 0.9% IV 250 ML 60 ML IV CONT (15:06)
[2023-12-31] MEDS: rOPINIRole HCL 1 MG TABLET PO (20:11)
[2023-12-31] MEDS: SACUBITRIL/VALSARTAN 49-51 MG TABLET 1 TABLET PO (20:11)
[2023-12-31] MEDS: AZITHROMYCIN 250 MG TABLET 500 MG PO (20:12)
[2024-01-01] VITALS (19 sets, daily range): BP systolic 93–114; BP diastolic 56–74; PULSE 73–100; RESP 18–20; TEMP 36.6–36.8; O2SAT 93–98
[2024-01-01 05:54] LABS: Anion Gap 4 mmol/L (8-16); Blood Urea Nitrogen 34 mg/dL (7-17); Carbon Dioxide 30 mmol/L (22-30); Chloride 103 mmol/L (98-107); Estimated CRCL calculation 45 ml/min; Estimated Glomerular Filt Rate 47; Glucose 144 mg/dL (65-110); Potassium 3.8 mmol/L (3.4-5.0); Sodium 137 mmol/L (137-145)
--- NOTE | 2024-01-01 06:13 | PCRCNOTE ---
0200 breathing tx was not given due to patient being on an overnight apnea study. 0800 tx will resume
[2024-01-01] MEDS: ALBUTEROL SULFATE NEB 2.5 MG/3 ML INH 5 MG INHALATION ×2 (07:39→21:03)
[2024-01-01] MEDS: IPRATROPIUM BR 0.02% INH SOLN 0.5 MG/2.5 ML VIAL INHALATION ×2 (07:39→21:03)
[2024-01-01] MEDS: SACUBITRIL/VALSARTAN 49-51 MG TABLET 1 TABLET PO ×2 (08:51→20:18)
[2024-01-01] MEDS: predniSONE 20 MG TABLET 60 MG PO (08:51)
[2024-01-01] MEDS: METOPROLOL SUCCINATE EXT REL 25 MG TABCR PO (08:51)
[2024-01-01] MEDS: SPIRONOLACTONE 25 MG TABLET PO (08:51)
[2024-01-01] MEDS: ASPIRIN 81 MG ENTERIC TABLET PO (08:51)
[2024-01-01] MEDS: EMPAGLIFLOZIN 25 MG TABLET PO (08:51)
[2024-01-01] MEDS: HEPARIN SODIUM 5,000 UNITS/ML VIAL 5000 UNITS SUB-Q ×2 (08:52→20:19)
[2024-01-01] MEDS: FUROSEMIDE 20 MG TABLET 60 MG PO (08:52)
[2024-01-01] MEDS: PANTOPRAZOLE SODIUM IV 40 MG VIAL IV PUSH (08:52)
--- NOTE | 2024-01-01 14:22 | PM.IMPN ---
Progress Note: A&P Assessment and Plan (1) COPD (chronic obstructive pulmonary disease): Qualifiers: COPD type: unspecified COPD Qualified Code(s): J44.9 - Chronic obstructive pulmonary disease, unspecified Code(s): J44.9 - Chronic obstructive pulmonary disease, unspecified Status: Acute Assessment and Plan: Oxygen home evaluation revealed, patient does not need home O2 at this time Hx of COPD, CXR did not reveal any localizing pneumonia, suspect exacerbation -continue oxygen titration to keep SPO2 above 93% -continue azithromycin p.o. 500 mg daily -continue prednisone 60 mg p.o. (2) Chronic respiratory failure, unspecified whether with hypoxia or hypercapnia: Code(s): J96.10 - Chronic respiratory failure, unspecified whether with hypoxia or hypercapnia Status: Acute Assessment and Plan: -continue oxygen titration therapy maintain SpO2 above 93% - apnea link results (3) Acute exacerbation of CHF (congestive heart failure): Qualifiers: Heart failure type: systolic Qualified Code(s): I50.23 - Acute on chronic systolic (congestive) heart failure Code(s): I50.9 - Heart failure, unspecified Status: Acute Assessment and Plan: -acute CHF exacerbation due to noncompliance with diuretic therapy.? Pulmonary exam has improved today per cardiology would like to shift p.o. furosemide -strict I&O -daily weights -Check electrolyte panel daily, daily BMP -continue home medications -plan to discharge in the a.m. (4) Nonadherence to medication: Code(s): Z91.14 - Patient's other noncompliance with medication regimen Status: Acute Assessment and Plan: -encourage compliance (5) CKD (chronic kidney disease) stage 3, GFR 30-59 ml/min: Qualifiers: Chronic kidney disease stage 3 subtype: stage 3a (GFR 45-59) Qualified Code(s): N18.31 - Chronic kidney disease, stage 3a Code(s): N18.30 - Chronic kidney disease, stage 3 unspecified Status: Acute (6) Elevated troponin: Code(s): R79.89 - Other specified abnormal findings of blood chemistry Status: Resolved (7) Transaminitis: Code(s): R74.01 - Elevation of levels of liver transaminase levels Status: Acute Assessment and Plan: transaminitis that is recurrent.? Likely due due to hepatic congestion from fluid status complicating the patient's baseline known alcoholic cirrhosis. -need to continue out-pt follow up outpatient (8) ICD (implantable cardioverter-defibrillator) in place: Code(s): Z95.810 - Presence of automatic (implantable) cardiac defibrillator Status: Acute Assessment and Plan: pt had a hx of 5 beat run of VTACH 12/31/2023, cardiology notified, suggested device interrogation. 01/01/2024: discussed with cardiology in reference of early recommendation to have pt ICD interrogated. plan was given from cardiology see below: For some reason there is desire on the part of the hospitalist to have her ICD interrogated.? Told the office staff that they would need to contact her established nurse instructor to a find out what type of device she has so that can occur.? I do not have any reason to suspect her defibrillator is malfunctioning or that it needs to be interrogated from what I can see. -continue telemetry monitoring -RN has made the arrangements to continue with interrogation, she has obtained device name and ID#, pt unable to be discharged at this time due family not being able to pick her up. plan for early dispo in the a.m. Plan Continue home medications: VTE Prophylaxis: Heparin subQ DIET: Heart healthy Anticipated hospital stay: > 2 days Code Status: Full Subjective Date/time seen: 01/01/24 10:15 Interval history: Shortness of breath and cough Narrative: 53-year-old female with past medical history of polysubstance abuse, COPD, tobacco abuse and and severe nonischemic cardiomyopathy with EF of 1
--- NOTE | 2024-01-01 14:26 | PC.NURSE ---
Order: Faxed Obtain Medical Records from: [facility] dated 12/30/2023 0877. No records received as of now. Will clarify with patient what facility she had the ICD was implanted.
--- NOTE | 2024-01-01 14:43 | PM.PNCARD ---
Progress Note: A&P Assessment and Plan (1) Cardiomyopathy: Code(s): I42.9 - Cardiomyopathy, unspecified Status: Acute Plan 53-year-old white female with: Severe dilated nonischemic cardiomyopathy with low ejection fraction. Admitted to this hospital with some volume overload which was coincident with her being off of her furosemide for couple of weeks. This appears to have been resolved there is no evidence of overload she appears to be euvolemic on physical exam and from my perspective can be discharged. For some reason there is desire on the part of the hospitalist to have her ICD interrogated. Told the office staff that they would need to contact her established reflector driller and deburrer to a find out what type of device she has so that can occur. I do not have any reason to suspect her defibrillator is malfunctioning or that it needs to be interrogated from what I can see Marquise Amin MD [facility] Subjective Date/time seen: Date of service: 01/01/24 14:43 Interval history: Cardiology follow up for CHF Date of service 12/31/2023: Still feeling short of breath today. She feels better after breathing treatments. Chest pain with coughing. No other complaints. Date of service 01/01/2024: The patient is comfortable at this time she believes her breathing is essentially back to baseline. She is wondering whether she will be provide a nebulizer upon discharge. The nurses are asking me who to call to interrogate her defibrillator device. Apparently the hospitalist which is to have a did interrogation done prior to discharge. We have no records regarding this as we are not her reflector driller and deburrer Exam Const: General: comfortable, no acute distress, alert and awake Orientation/consciousness: patient oriented x3 HENMT: Head: normal to inspection Eyes: General: appearance normal, both eyes and all related structures Pupils: Equal, round and reactive pupils present Neck: Neck: normal visual inspection, supple and no JVD Carotids: normal carotid upstroke Resp: Effort & Inspection: normal respiratory effort Auscultation: clear to auscultation bilaterally, crackles, rales, wheezes and diminished lung sounds Cardio: Rate: regular rate Rhythm: regular rhythm Heart sounds: S1 normal heart sound present, S2 normal heart sound present and no murmurs GI: Auscultation: normal bowel sounds Skin: General skin exam: normal color Neuro: General: patient oriented x3 Cranial nerves: Yes Equal, round and reactive pupils present Extrem: General: normal to inspection Other: No edema Psych: Appearance: grossly normal Mental Status: mental status grossly normal Objective Data Vital Signs Vital Signs: Vital Signs - 24 hr 12/31/23 17:22 12/31/23 16:00 12/31/23 18:25 Temperature Pulse Rate 80 Respiratory Rate Blood Pressure 83/56 L 94/60 L Pulse Oximetry Oxygen Delivery Fraction of Inspired Oxygen 12/31/23 19:18 12/31/23 20:29 12/31/23 20:29 Temperature 36.8 C Pulse Rate 87 82 Respiratory Rate 20 18 Blood Pressure 105/72 Pulse Oximetry 100 95 Oxygen Delivery Room Air Fraction of Inspired Oxygen 21 12/31/23 20:39 12/31/23 20:00 12/31/23 20:00 Temperature Pulse Rate 84 81 Respiratory Rate 18 Blood Pressure Pulse Oximetry 97 Oxygen Delivery Room Air Fraction of Inspired Oxygen 01/01/24 00:00 01/01/24 04:00 01/01/24 05:45 Temperature 36.6 C Pulse Rate 84 73 89 Respiratory Rate 20 Blood Pressure 93/61 L Pulse Oximetry 96 Oxygen Delivery Fraction of Inspired Oxygen 01/01/24 07:39 01/01/24 07:39 01/01/24 07:54 Temperature Pulse Rate 84 87 Respiratory Rate 18 18 Blood Pressure Pulse Oximetry 95 Oxygen Delivery Room Air Fraction of Inspired Oxygen 01/01/24 08:49 01/01/24 08:51 01/01/24 11:13 Temperature Pulse Rate 100 100 Respiratory Rate 18 Blood Pressure 114/72 93/56 L Pulse Oximetry 97 94 Oxyg
--- NOTE | 2024-01-01 17:06 | PCRCNOTE ---
Window of time for administration has passed. See next scheduled administration.
--- NOTE | 2024-01-01 19:02 | PC.NURSE ---
Received interrogation report for [employer] defibrillator and placed on patient's chart.
[2024-01-01] MEDS: rOPINIRole HCL 1 MG TABLET PO (20:18)
[2024-01-01] MEDS: AZITHROMYCIN 250 MG TABLET 500 MG PO (20:18)
[2024-01-02] VITALS (10 sets, daily range): BP systolic 103; BP diastolic 75; PULSE 69–98; RESP 18–20; TEMP 36.6; O2SAT 93–95
[2024-01-02] MEDS: IPRATROPIUM BR 0.02% INH SOLN 0.5 MG/2.5 ML VIAL INHALATION ×3 (03:12→14:45)
[2024-01-02] MEDS: ALBUTEROL SULFATE NEB 2.5 MG/3 ML INH 5 MG INHALATION ×3 (03:12→14:45)
[2024-01-02 05:58] LABS: Basophils Percent Auto 0.1 % (0.2-1.2); Hematocrit 42.6 % (37.0-47.0); Hemoglobin 13.4 g/dL (12.0-15.0); Immature Granulocyte Absolute 0.04 K/mm3 (0.00-0.031); Immature Granulocyte Percent A 0.5 % (0-0.5); Immature Platelet Fraction Pct 6.4 % (0.9-11.2); Lymphocytes Absolute Auto 1.09 K/mm3 (0.9-3.2); Lymphocytes Percent Auto 13.1 % (18.3-44.2); Mean Corpuscular HGB Conc 31.5 g/dl (32-36); Mean Corpuscular Hemoglobin 29.5 pg (26-34); Mean Corpuscular Volume 93.8 fl (80-100); Mean Platelet Volume 11.9 fl (7.4-10.4); Monocytes Absolute Auto 0.5 K/mm3 (0.1-0.6); Monocytes Percent Auto 5.8 % (2.6-8.5); Neutrophils Absolute Auto 6.7 K/mm3 (1.3-6.7); Neutrophils Percent Auto 80.5 % (45.5-73.1); Platelet Count Result 124 k/mm3 (150-375); Red Blood Count 4.54 M/mm3 (4.2-5.4); Red Cell Distribution Width 15.1 % (11.5-14.5); White Blood Count 8.3 K/mm3 (4.5-10.0)
[2024-01-02 06:06] LABS: Anion Gap 5 mmol/L (8-16); Blood Urea Nitrogen 35 mg/dL (7-17); Calcium 8.7 mg/dL (8.4-10.2); Carbon Dioxide 27 mmol/L (22-30); Chloride 105 mmol/L (98-107); Estimated CRCL calculation 54 ml/min; Estimated Glomerular Filt Rate 58; Glucose 95 mg/dL (65-110); Potassium 3.6 mmol/L (3.4-5.0); Sodium 137 mmol/L (137-145)
[2024-01-02] MEDS: EMPAGLIFLOZIN 25 MG TABLET PO (08:27)
[2024-01-02] MEDS: ASPIRIN 81 MG ENTERIC TABLET PO (08:27)
[2024-01-02] MEDS: FUROSEMIDE 20 MG TABLET 60 MG PO (08:27)
[2024-01-02] MEDS: SPIRONOLACTONE 25 MG TABLET PO (08:27)
[2024-01-02] MEDS: predniSONE 20 MG TABLET 60 MG PO (08:27)
[2024-01-02] MEDS: SACUBITRIL/VALSARTAN 49-51 MG TABLET 1 TABLET PO (08:27)
[2024-01-02] MEDS: METOPROLOL SUCCINATE EXT REL 25 MG TABCR PO (08:27)
[2024-01-02] MEDS: PANTOPRAZOLE SODIUM IV 40 MG VIAL IV PUSH (08:27)
[2024-01-02] MEDS: HEPARIN SODIUM 5,000 UNITS/ML VIAL 5000 UNITS SUB-Q (08:28)
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
[2024-01-02] MEDS: ACETAMINOPHEN 325 MG TABLET 650 MG PO (14:07)
[2024-01-02] MEDS: HYDROcodone/acetaminophen (*CRX) 5-325 MG TABLET 1 TAB PO (14:52)
== END 2024-01-02 15:20 | disposition home or self-care (01) | DRG 194 ==
LOC: ANHED 14:08 → ANH2MED 15:26
PROVIDERS: Internal Medicine; Nurse Practitioner; Admitting Provider Internal Medicine; Emergency Provider Physician Assistant; PCP Internal Medicine Cardiovascular Disease; Visit Provider Nurse Practitioner
DX: I13.0 Hypertensive heart and chronic kidney disease with heart failure and stage 1 through stage 4 chronic kidney disease, or unspecified chronic kidney disease (principal); I43 Cardiomyopathy in diseases classified elsewhere; I50.43 Acute on chronic combined systolic (congestive) and diastolic (congestive) heart failure; N18.31 Chronic kidney disease, stage 3a; J44.9 Chronic obstructive pulmonary disease, unspecified; Z95.810 Presence of automatic (implantable) cardiac defibrillator; Z87.891 Personal history of nicotine dependence; N39.3 Stress incontinence (female) (male); K70.30 Alcoholic cirrhosis of liver without ascites; Z20.822 Contact with and (suspected) exposure to COVID-19; J96.11 Chronic respiratory failure with hypoxia; Z99.81 Dependence on supplemental oxygen; F19.10 Other psychoactive substance abuse, uncomplicated; Z79.82 Long term (current) use of aspirin; K21.9 Gastro-esophageal reflux disease without esophagitis; Z90.710 Acquired absence of both cervix and uterus; Z91.148 Patient's other noncompliance with medication regimen for other reason
CPT/HCPCS: 36415; 36600; 71046; 71275; 76705; 80048; 80053; 80307; 81003; 82805; 82948; 83690; 83880; 84484; 85025; 85055; 85610; 85730; 87070; 87205; 87637; 93005; 94618; 94640; 94762; 96365; 96375; 99285; A9270; C9113; G0379; J0456; J0696; J1644; J1940; J2060; J2930; J7050; J7512; Q9967

== ENCOUNTER 2024-01-26 15:32 | Outpatient (CLI) | payer OTHER, SELFPAY ==
--- NOTE | ~2024-01-26 | XR_ITS ---
XR chest 2V 01/26/2024 15:50 Indication: Fatigue, syncope and shortness of breath Procedure: 2 view chest Comparison: Comparison to multiple prior studies sequentially, with oldest reviewed study dated 01/2022. Findings: Cardiomegaly. Pacemaker leads are stable. No focal air space disease, pulmonary edema, pleu ral effusion or suspected pneumothorax. Impression: 1: No acute cardiopulmonary disease. Reviewed, dictated and finalized at location A. Impression: 1: No acute cardiopulmonary disease.
[2024-01-26 15:49] LABS: Basophils Absolute Auto 0.04 K/mm3 (0.00-0.10); Eosinophils Absolute Auto 0.15 K/mm3 (0.02-0.50); Eosinophils Percent Auto 3.6 % (1.0-6.0); Hematocrit 49.6 % (35.0-49.0); Immature Granulocyte Absolute 0.01 K/mm3 (0.00-0.00); Immature Granulocyte Percent A 0.2 % (0.0-0.0); Immature Platelet Fraction Pct 5.1 % (1.0-7.0); Lymphocytes Percent Auto 33.4 % (18.0-42.0); Mean Corpuscular HGB Conc 32.3 g/dL (32-36); Mean Corpuscular Hemoglobin 29.3 pg (27.0-31.0); Mean Corpuscular Volume 90.7 fL (78.0-102.0); Mean Platelet Volume 10.9 fl (9.2-11.8); Monocytes Absolute Auto 0.55 K/mm3 (0.10-0.90); Monocytes Percent Auto 13.1 % (2.0-11.0); Neutrophils Absolute Auto 2.04 K/mm3 (1.70-7.20); Neutrophils Percent Auto 48.7 % (50.0-70.0); Platelet Count Result 119 K/mm3 (150-420); Red Blood Count 5.47 M/mm3 (4.20-5.40); Red Cell Distribution Width 15.5 % (11.6-14.4); White Blood Count 4.2 K/mm3 (4.8-10.8)
[2024-01-26 16:09] LABS: Alanine Aminotransferase 40 U/L (14-59); Albumin Level 3.8 g/dL (3.4-5.0); Alkaline Phosphatase 83 U/L (46-116); Anion Gap 7 mmol/L (8-16); Aspartate Amino Transferase 46 U/L (15-37); Bilirubin,Total 0.6 mg/dL (0.00-1.00); Blood Urea Nitrogen 16 mg/dL (7-18); Calcium 9.1 mg/dL (8.5-10.1); Carbon Dioxide 31 mmol/L (21-32); Chloride 106 mmol/L (98-108); Estimated Glomerular Filt Rate 51; Glucose 75 mg/dL (70-99); Osmolality Calculated 298 mOsm/kg (285-295); Sodium 144 mmol/L (136-145); Total Protein 7.8 g/dL (6.4-8.2)
[2024-01-26 16:10] LABS: Troponin I 24.5 ng/L (0.00-60.4)
== END 2024-01-26 15:33 | disposition home or self-care (01) ==
LOC: CHSLAB 15:32
PROVIDERS: PCP Nurse Practitioner Family; Visit Provider Nurse Practitioner Family
DX: R73.9 Hyperglycemia, unspecified (principal); R74.01 Elevation of levels of liver transaminase levels; I50.9 Heart failure, unspecified; R53.83 Other fatigue
CPT/HCPCS: 36415; 71046; 80053; 83036; 84484; 85025; 85055

== ENCOUNTER 2024-09-18 11:49 | Outpatient (CLI) | payer OTHER, SELFPAY ==
[2024-09-18 12:24] LABS: Basophils Absolute Auto 0.05 K/mm3 (0.00-0.10); Basophils Percent Auto 0.9 % (0.0-1.0); Eosinophils Absolute Auto 0.09 K/mm3 (0.02-0.50); Eosinophils Percent Auto 1.7 % (1.0-6.0); Immature Granulocyte Absolute 0.01 K/mm3 (0.00-0.00); Immature Granulocyte Percent A 0.2 % (0.0-0.0); Immature Platelet Fraction Pct 6.2 % (1.0-7.0); Lymphocytes Absolute Auto 1.58 K/mm3 (1.10-4.50); Lymphocytes Percent Auto 29.6 % (18.0-42.0); Mean Corpuscular HGB Conc 34.8 g/dL (32-36); Mean Corpuscular Hemoglobin 31.3 pg (27.0-31.0); Mean Platelet Volume 11.6 fl (9.2-11.8); Monocytes Absolute Auto 0.53 K/mm3 (0.10-0.90); Monocytes Percent Auto 9.9 % (2.0-11.0); Neutrophils Absolute Auto 3.07 K/mm3 (1.70-7.20); Neutrophils Percent Auto 57.7 % (50.0-70.0); Nucleated Red Blood Cells Absolute Auto 0.02 K/mm3 (0.00-0.00); Nucleated Red Blood Cells Perc 0.4 % (0-0.0); Platelet Count Result 118 K/mm3 (150-420); Red Blood Count 5.11 M/mm3 (4.20-5.40); Red Cell Distribution Width 12.5 % (11.6-14.4); White Blood Count 5.3 K/mm3 (4.8-10.8)
[2024-09-18 13:05] LABS: Alanine Aminotransferase 110 U/L (14-59); Alkaline Phosphatase 79 U/L (46-116); Anion Gap 8 mmol/L (4-12); Aspartate Amino Transferase 95 U/L (15-37); Bilirubin,Total 0.7 mg/dL (0.00-1.00); Blood Urea Nitrogen 16 mg/dL (7-18); Calcium 9.8 mg/dL (8.5-10.1); Carbon Dioxide 30 mmol/L (21-32); Chloride 105 mmol/L (98-108); Estimated Glomerular Filt Rate 53; Glucose 102 mg/dL (70-99); NT Pro B Type Natriuretic Pept 581 pg/mL (0-125); Osmolality Calculated 297 mOsm/kg (285-295); Potassium 4.8 mmol/L (3.5-5.1); Sodium 143 mmol/L (136-145); Total Protein 7.8 g/dL (6.4-8.2)
[2024-09-18 13:06] LABS: CRP < 0.5 mg/dL (0.0-0.9)
== END 2024-09-18 11:50 | disposition home or self-care (01) ==
PROVIDERS: PCP Nurse Practitioner Family; Visit Provider Nurse Practitioner Family
DX: G62.9 Polyneuropathy, unspecified (principal); I10 Essential (primary) hypertension; E87.5 Hyperkalemia; I50.9 Heart failure, unspecified
CPT/HCPCS: 36415; 80053; 83880; 85025; 85055; 86140